=== PATIENT | female | born 1985 | race Caucasian/White ===

== ENCOUNTER 2016-04-23 17:40 | Emergency (ER) | payer MEDICAID, OTHER ==
[~2016-04-23 17:40] MED LIST: COMBIVIR PO; DEPA500T2 OR; DEPA500T2 PO; MACROBID PO; VIREAD PO; no home medications
[2016-04-23 18:38] LABS: MEAN CORPUSCULAR HEMOGLOBIN 30.8 pg (27.0-33.0); MEAN CORPUSCULAR HGB CONC 33.3 g/dl (32.0-36.5); MEAN CORPUSCULAR VOLUME 92.5 fl (80.0-96.0); RED CELL DISTRIBUTION WIDTH 12.3 % (11.5-14.5)
[2016-04-23 18:41] LABS: CONTROL LINE HCG INT CTR LINE PRESENT
[2016-04-23] MEDS ORDERED: ONDANSETRON 4MG/2ML VIAL (J2405) As Ordered ONE (18:50)
[2016-04-23] MEDS ORDERED: MORPHINE 4 MG/ML 1ML SYRINGE As Ordered ONE (18:50)
--- NOTE | 2016-04-23 19:50 | REPUSA ---
Clinical history: bleeding. Findings: Real-time transabdominal and transvaginal ultrasound images of the pelvis were obtained. An anteverted uterus is noted, measuring 9.1 x 5.3 x 7.0 cm. The uterus demonstrates normal echotexture and echogenicity. The endometrial stripe measures 23 mm in diameter. There is an intrauterine gestat ional sac with a mean sac diameter 13.4 mm, located in the lower uterine canal. No pole or yolk sac is identified at this time. The right ovary measures 2.9 x 1.8 x 2.1 cm. The left ovary was not visualized. There is no evidence of free fluid. Impression: 1. Intrauterine gestational sac measuring 6 weeks 1 day by ultrasound measurements. No pole or yolk sac is identified however. The gestational sac is located in the lower uterine segment. This sug gests a spontaneous in progress, although an early could also have this appearance . Follow-up with serial serum beta hCG levels is recommended for further evaluation. 2. Left ovary was not visualized.
[2016-04-23] MEDS ORDERED: NORCO 5/325MG TABLET (BULK) As Ordered ONE (21:24)
--- NOTE | 2016-04-23 21:41 | EDDOCDS ---
Physician Documentation [facility] Name: Valery Nicholson Age: 30 yrs Sex: Female : 1985 Arrival Date: 04/23/2016 Time: 17:40 Bed 7 Private MD: Disposition: 04/23 20:05 Critical Care: Critical care not applicable. pc Disposition: 04/23/16 20:59 Discharged to Home/Self Care. Impression: Threatened , Incomplete spontaneous without complication - suspected. - Condition is Stable. - Discharge Instructions: Incomplete Miscarriage, Threatened Miscarriage. - Prescriptions for [place] 5- 325 mg Oral Tablet - take 1 tablet by ORAL route every 6 hours As needed MDD: 4 tabs; 20 tablet. - Medication Reconciliation, Local Pharmacy Hours form. - Follow up: Tung Hester; When: Call to arrange an appointment; Reason: To establish care. Follow up: Emergency Department; When: As needed; Reason: Worsening of conditions. - Problem is new. - Symptoms have improved. HPI: 18:40 This 30 yrs old Female presents to ER via Police Car with complaints of pc Vaginal Bleeding. 18:40 The history is obtained from the patient. She has not had a period in 8 weeks and pc developed lower abdominal cramping and vaginal bleeding, with dark clots, while in [facility]. She is not sure if she is but has not done any home tests since missing her period 4 weeks ago. At their worst, the symptoms were a 10 out of 10. In the emergency department, the symptoms are a 10 out of 10. The patient has not experienced similar symptoms in the past. The patient has not recently seen a physician. Historical: - Allergies: no known allergies; - Home Meds: 1. none - PMHx: none; - PSHx: none; - The history from nurses notes was reviewed: and I agree with what is documented. - Social history: No barriers to communication noted, The patient speaks fluent Faroese, Smoking status: Patient states former smoker of tobacco. - : The pt / caregiver states he / she is not on anticoagulants. Home medication list is obtained from the patient. - Hospitalizations: : No recent hospitalization is reported. - Exposure Risk Screening:: None identified. - Immunization history:: All immunizations up-to-date. - Family history: Not pertinent. - Social history:: the patient smokes cigarettes the patient drinks alcohol. 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 pc Exam: 18:40 General Appearance: alert, the patient is in moderate distress, anxious. pc 18:40 Abdomen: soft, no organomegaly, normal bowel sounds, mild tenderness in the suprapubic area. 18:40 Back: normal inspection. 18:40 Skin: skin color is normal, warm, dry. Vital Signs: 17:42 BP 121 / 73 LA Sitting (auto/reg); Pulse 108; Resp 18; Pulse Ox 99% on R/A; Weight bnb 54.43 kg / 120 lbs; Height 5 ft. 6 in. (167.64 cm); Pain 10/10; 18:25 Temp 98.9; dls 19:08 BP 117 / 77; Pulse 89; Resp 18; Temp 97.8(O); Pulse Ox 100% on R/A; mgs 20:53 BP 108 / 60; Pulse 81; Resp 18; Temp 99.1; Pulse Ox 98% on R/A; mgs 17:42 Body Mass Index 19.37 (54.43 kg, 167.64 cm) bnb MDM: 18:20 Misc. Nursing Order ordered. pc 18:20 IV Saline Lock ordered. pc 18:21 CBC Ordered. EDMS 18:21 HCG,Serum Qualitative Ordered. EDMS 18:43 Differential Diagnosis: abdominal cramping and vaginal bleeding, metrorrhagia versus pc related. Plan: IV, labs. 18:44 CBC Reviewed. pc 18:44 HCG,Serum Qualitative Reviewed. pc 18:45 morphine 4 mg IVP once ordered. pc 18:45 Ondansetron 4 mg IVP once ordered. pc 18:46 Hcg, Serum Quantitative Ordered. EDMS 18:46 Ultrasound 1st Trimester Ordered. EDMS 18:46 Type & Screen Ordered. EDMS 19:41 Hcg, Serum Quantitative Reviewed. pc 19:41 Type & Screen Reviewed. pc 19:43 -RhoGAM Ultra-Filtered Plus 300 mcg IM once ordered. pc 19:44 Draw Rhogam Ordered. EDMS 20:05 Data reviewed: old medical records, vital signs, nurses notes, lab test results, all pc radiology studies and available results. Test interpretation: LAB - all labs as ordered have been reviewed, interpreted and considered in the overall management of the clinical presentation; Ultrasound - interpreted by Radiologist, OB 1st trimester 6w1d gest. sac in VENKATA, no pole, consistent with spontaneous in progress but a viable could not be ruled out. Therefore, it is a threatened AB. The patient has been re-examined and re-evaluated. The patient's symptoms have resolved after treatment, the patient's pain is gone. ED course: The patient was advised of the US results and was overjoyed, stating that "it was the douche bag's kid anyway and I was going to get an anyway. This just saved me a lot of money.".. Disposition: The historical points, examination findings, and any diagnostic results supporting the provided diagnosis, were discussed with the patient or legal guardian. The need for outpatient follow up with the provider listed on their discharge instructions was discussed. They were encouraged to return to [facility], or the nearest ED, if symptoms worsen/persist, or for any other questions/concerns. 20:54 Financial registration complete. zo 20:55 [facility] Payment Agreement was scanned into [employer] and attached to record. zo 21:05 HYDROcodone-acetaminophen 4 pack- 5 mg-325 mg 1 packets PO Per package directions; pc Dispense with patient. 1 po q4h prn for pain ordered. Administered Medications: 18:59 Drug: morphine 4 mg [morphine 4 mg/mL intravenous cartridge (1 mL)] Route: IVP; Site: kc3 right antecubital; 18:59 Drug: Ondansetron 4 mg [ondansetron HCl 2 mg/mL intravenous solution (2 mL)] Route: kc3 IVP; Site: right antecubital; 20:45 Drug: -RhoGAM Ultra-Filtered Plus 300 mcg [RhoGAM Ultra-Filtered PLUS 1,500 unit (300 mgs mcg) intramuscular syringe (300 mcg)] Route: IM; Site: right deltoid; 21:38 Drug: HYDROcodone-acetaminophen 4 pack- 1 packets [hydrocodone 5 mg-acetaminophen 325 mgs mg tablet (1 tabs)] {Co-Signature: mv5 (Jailene Ko RN).} Route: PO; 21:39 Follow up: Response: Med's dispensed home mgs Signatures: Dispatcher [employer] EDMS Thee Mcmullen MD MD pc Olin, Zoeann zo Raymond, Leelee, RN RN jRuben Spears RN RN Hetal Arce RN kc3 Jailene Ko RN mv5 The chart was reviewed and I authenticate all verbal orders and agree with the evaluation and treatment provided.Corrections: (The following items were deleted from the chart) 20:08 20:05 Test interpretation: LAB - all labs as ordered have been reviewed, interpreted pc and considered in the overall management of the clinical presentation; Ultrasound - interpreted by Radiologist, OB 1st trimester 6w1d gest. sac in VENKATA, no pole, consistent with spontaneous pc Attachments: 20:55 [facility] Payment Agreement zo MTDD
--- NOTE | 2016-04-23 21:41 | EDDOCDS ---
Nurse's Notes [facility] Name: Valery Nicholson Age: 30 yrs Sex: Female : 1985 Arrival Date: 04/23/2016 Time: 17:40 Bed 7 Private MD: Diagnosis: Threatened ;Incomplete spontaneous without complication-suspected Presentation: 04/23 17:48 Presenting complaint: Patient states: last menstrual cycle beginning of February no jjr confirmed testing, sudden onset vaginal bleeding with clots and pelvic pain approx one hour ago. Risk factors: The patient reports no loss of conciousness prior to arrival. This patient has not had a hysterectomy. This patient has not begun menopause. Adult Sepsis Screening: The patient does not have new or worsening altered mentation. Patient's respiratory rate is less than 22. Systolic blood pressure is greater than 100. Patient has a qSOFA score of 0- Negative Sepsis Screen. Suicide/Homicide risk assessment- the patient denies having any suicidal and/or homicidal ideations and does not present with any other emotional, behavioral or mental health complaints. Status: Patient is not a student services advisor or dependent. Transition of care: patient was not received from another setting of care. 17:48 Acuity: DAL[place] Level 3 jjr 17:48 Method Of Arrival: Police Car jjr Triage Assessment: 17:51 General: Appears uncomfortable, Behavior is agitated, restless. General: patient jjr yelling at this video game script writer on way to exam room "I want it out, give me a D&C". Pain: Location: pelvis. HIV screening NA for this visit Offered previously. : Reports vaginal bleeding that is with clots heavy flow. 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 none - PMHx: none; - PSHx: none; - The history from nurses notes was reviewed: and I agree with what is documented. - Social history: No barriers to communication noted, The patient speaks fluent Croatian, Smoking status: Patient states former smoker of tobacco. - : The pt / caregiver states he / she is not on anticoagulants. Home medication list is obtained from the patient. - Hospitalizations: : No recent hospitalization is reported. - Exposure Risk Screening:: None identified. - Immunization history:: All immunizations up-to-date. - Family history: Not pertinent. - Social history:: the patient smokes cigarettes the patient drinks alcohol. Screenin:23 Screening information is obtained from the patient. Fall risk: No risks identified. dls Assistance ADL's: requires no assistance with activities of daily living. Abuse/DV Screen: The patient / caregiver reports he/she is: not in a situation that causes fear, pain or injury. Nutritional screening: No deficits noted. Advance Directives: Currently, there is no health care proxy. There is no active DNR order. There is no living will. There is no Power of [employer]. home support is adequate. Assessment: 17:56 General: Patient pushed emergency button in room. Guard at bedside. Patient stated jmjennifer "hurry up, I hurt, I need someone to do something about it." Patient informed that a provider would be with her shortly but that they were currently with other patients at this time.. 19:07 General: Appears in no apparent distress, Behavior is cooperative. Pain: Denies pain. mgs Neurological: Level of Consciousness is awake, alert, Oriented to person, place, time. Cardiovascular: Capillary refill < 3 seconds Heart tones S1 S2 present Pulses are 2+ in right radial artery and left radial artery. Respiratory: Airway is patent Respiratory effort is even, unlabored, Respiratory pattern is regular, symmetrical. Derm: Skin is pink, warm & dry. 20:52 General: Appears in no apparent distress, Behavior is cooperative. Pain: Denies pain. mgs Neurological: Level of Consciousness is awake, alert, Oriented to person, place, time. Cardiovascular: Capillary refill < 3 seconds. Respiratory: Airway is patent Respiratory effort is even, unlabored, Respiratory pattern is regular, symmetrical. Derm: Skin is pink, warm & dry. 21:33 General: Appears in no apparent distress, Behavior is appropriate for age, cooperative. mgs Pain: Denies pain. Neurological: Level of Consciousness is awake, alert, Oriented to person, place, time. Cardiovascular: Capillary refill < 3 seconds. Respiratory: Airway is patent Respiratory effort is even, unlabored, Respiratory pattern is regular, symmetrical. Derm: Skin is pink, warm & dry. Vital Signs: 17:42 BP 121 / 73 LA Sitting (auto/reg); Pulse 108; Resp 18; Pulse Ox 99% on R/A; Weight bnb 54.43 kg; Height 5 ft. 6 in. (167.64 cm); Pain 10/10; 18:25 Temp 98.9; dls 19:08 BP 117 / 77; Pulse 89; Resp 18; Temp 97.8(O); Pulse Ox 100% on R/A; mgs 20:53 BP 108 / 60; Pulse 81; Resp 18; Temp 99.1; Pulse Ox 98% on R/A; mgs 17:42 Body Mass Index 19.37 (54.43 kg, 167.64 cm) bnb Vitals: 17:42 Log In Time: April 23, 2016 at 17:40. bnb ED Course: 17:41 Patient visited by Fawn Thomas PCA. bnb 17:41 Patient moved to Waiting bnb 17:43 Patient moved to I7 / bnb 17:50 Triage Initiated jjr 18:06 Malaika Bautista, RN is Primary Nurse. jmb 18:06 Patient moved to 7 jmb 18:20 Thee Mcmullen MD is Attending Physician. pc 18:23 The patient / caregiver is instructed regarding the plan of care and ED course. dls 18:23 HCG,Serum Qualitative Sent. hs1 18:24 CBC Sent. hs1 18:40 Patient visited by Thee Mcmullen MD. pc 18:48 Type & Screen Sent. hs1 18:48 Hcg, Serum Quantitative Sent. hs1 19:09 Patient visited by Ruben Horvath,MICHAEL. mgs 19:16 Patient moved to Ultrasound dmg 19:32 Patient moved to 7 dmg 20:17 Ultrasound 1st Trimester Returned. EDMS 20:35 Patient visited by Thee Mcmullen MD. pc 20:37 Draw Rhogam Sent. pc 20:53 Patient visited by Ruben Horvath,MICHAEL. mgs 20:55 [facility] Payment Agreement was scanned into [employer] and attached to record. zo 20:59 Tung Hester is Referral Physician. pc 21:36 Discontinued IV lock intact, bleeding controlled, pressure dressing applied, No mgs redness/swelling at site. No procedures done that require assistance. Administered Medications: 18:59 Drug: morphine 4 mg [morphine 4 mg/mL intravenous cartridge (1 mL)] Route: IVP; Site: kc3 right antecubital; 18:59 Drug: Ondansetron 4 mg [ondansetron HCl 2 mg/mL intravenous solution (2 mL)] Route: kc3 IVP; Site: right antecubital; 20:45 Drug: -RhoGAM Ultra-Filtered Plus 300 mcg [RhoGAM Ultra-Filtered PLUS 1,500 unit (300 mgs mcg) intramuscular syringe (300 mcg)] Route: IM; Site: right deltoid; 21:38 Drug: HYDROcodone-acetaminophen 4 pack- 1 packets [hydrocodone 5 mg-acetaminophen 325 mgs mg tablet (1 tabs)] {Co-Signature: mv5 (Jailene Ko RN).} Route: PO; 21:39 Follow up: Response: Med's dispensed home mgs Order Results: Lab Order: CBC; SPEC'M 04/23/16 18:17 Test: WHITE BLOOD COUNT; Value: 17.0; Range: 4.0-10.0; Abnormal: Above high normal; Units: K/mm3; Status: F Test: RED BLOOD COUNT; Value: 4.17; Range: 4.00-5.40; Units: M/mm3; Status: F Test: HEMOGLOBIN; Value: 12.8; Range: 12.0-16.0; Units: g/dl; Status: F Test: HEMATOCRIT; Value: 38.5; Range: 36.0-47.0; Units: %; Status: F Test: MEAN CORPUSCULAR VOLUME; Value: 92.5; Range: 80.0-96.0; Units: fl; Status: F Test: MEAN CORPUSCULAR HEMOGLOBIN; Value: 30.8; Range: 27.0-33.0; Units: pg; Status: F Test: MEAN CORPUSCULAR HGB CONC; Value: 33.3; Range: 32.0-36.5; Units: g/dl; Status: F Test: RED CELL DISTRIBUTION WIDTH; Value: 12.3; Range: 11.5-14.5; Units: %; Status: F Test: PLATELET COUNT, AUTOMATED; Value: 266; Range: 150-450; Units: k/mm3; Status: F Lab Order: HCG,Serum Qualitative; SPEC'M 04/23/16 18:17 Test: HCG, SERUM QUALITATIVE; Value: POSITIVE; Range: NEGATIVE; Abnormal: Abnormal; Status: F Lab Order: Hcg, Serum Quantitative; SPEC'M 04/23/16 18:17 Test: HCG, SERUM QUANTITATIVE; Value: 4354; Units: MIU/ML; Status: F Test Note: ; GESTATIONAL AGE APPROXIMATE HCG RANGE (MIU/ML) 0.2-1 WEEK 5-50 1-2 WEEKS 50-500 2-3 WEEKS 100-5,000 3-4 WEEKS 500-10,000 4-5 WEEKS 1,000-50,000 5-6 WEEKS 10,000-100,000 6-8 WEEKS 15,000-200,000 2-3 MONTHS 10,000-100,000 NON FEMALES LESS THAN 3.0 Patient samples may contain human heterophilic antibodies that could react with immunoassays to give falsely elevated or depressed results. This assay has been designed to minimize interference from heterophilic antibodies. Elevated hCG levels have also been associated with trophoblastic disease and nontrophoblastic neoplasms. The possibility of having these diseases should be considered before a diagnosis of is made. This test is not intended for use as a surrogate marker for aiding in the diagnosis or monitoring the treatment of cancer patients. Siemens [place] methodology. Lab Order: Type & Screen; SPEC'M 04/23/16 18:17 Test: BLOOD TYPE; Value: A NEG; Status: F Test: AB SCREEN (INDIRECT BIB)VIS; Value: NEGATIVE; Status: F Radiology Order: Ultrasound 1st Trimester Test: Ultrasound 1st Trimester REASON FOR EXAMINATION: Bleeding; ; Clinical history: bleeding.; Findings: Real-time transabdominal and transvaginal ultrasound images of the pelvis were obtained. An; anteverted uterus is noted, measuring 9.1 x 5.3 x 7.0 cm. The uterus demonstrates normal echotexture; and echogenicity. The endometrial stripe measures 23 mm in diameter. There is an intrauterine gestat; ional sac with a mean sac diameter 13.4 mm, located in the lower uterine canal. No pole or yolk; sac is identified at this time. The right ovary measures 2.9 x 1.8 x 2.1 cm. The left ovary was not; visualized. There is no evidence of free fluid.; Impression:; 1. Intrauterine gestational sac measuring 6 weeks 1 day by ultrasound measurements. No pole or; yolk sac is identified however. The gestational sac is located in the lower uterine segment. This sug; gests a spontaneous in progress, although an early could also have this appearance; . Follow-up with serial serum beta hCG levels is recommended for further evaluation.; 2. Left ovary was not visualized.; ; Outcome: 20:59 Discharge ordered by Provider. pc 21:37 Discharge Assessment: Patient awake, alert and oriented x 3. No cognitive and/or mgs functional deficits noted. Patient verbalized understanding of disposition instructions. patient administered narcotics - yes. Pt provided with safe discharge. The following High Risk Discharge criteria are identified: None. Discharged to [facility]. Condition: stable. Discharge instructions given to patient, police, Instructed on discharge instructions, follow up and referral plans. medication usage, Demonstrated understanding of instructions, medications, Pt was receptive of discharge instructions/ teaching. Prescriptions given X 1. Ultrasound Study completed. Property :Personal belongings accompany Pt. 21:39 Patient left the ED. mgs Signatures: Dispatcher [employer] EDMS Thee Mcmullen MD MD pc Scott, Debra, RN RN Tish Mitchell Zoeann zo Raymond, Jessica RN RN [place] RN RN hs1 Milton Thomas RN RN Ruben [place] RN RN mgs Hetal Cardona RN RN kc3 Fawn Thomas, BEHAVIORAL HEALTH PROFESSIONAL BEHAVIORAL HEALTH PROFESSIONAL bnb Jailene Ko RN mv5 MTDD
--- NOTE | 2016-04-25 22:40 | EDDOCDS ---
Physician Documentation [facility] Name: Valery Nicholson Age: 30 yrs Sex: Female : 1985 Arrival Date: 04/23/2016 Time: 17:40 Bed 7 Private MD: Disposition: 04/23 20:05 Critical Care: Critical care not applicable. pc Disposition: 04/23/16 20:59 Discharged to Home/Self Care. Impression: Threatened , Incomplete spontaneous without complication - suspected. - Condition is Stable. - Discharge Instructions: Incomplete Miscarriage, Threatened Miscarriage. - Prescriptions for [place] 5- 325 mg Oral Tablet - take 1 tablet by ORAL route every 6 hours As needed MDD: 4 tabs; 20 tablet. - Medication Reconciliation, Local Pharmacy Hours form. - Follow up: [facility]; When: Call to arrange an appointment; Reason: To establish care. Follow up: Emergency Department; When: As needed; Reason: Worsening of conditions. - Problem is new. - Symptoms have improved. HPI: 18:40 This 30 yrs old Female presents to ER via Police Car with complaints of pc Vaginal Bleeding. 18:40 The history is obtained from the patient. She has not had a period in 8 weeks and pc developed lower abdominal cramping and vaginal bleeding, with dark clots, while in [facility]. She is not sure if she is but has not done any home tests since missing her period 4 weeks ago. At their worst, the symptoms were a 10 out of 10. In the emergency department, the symptoms are a 10 out of 10. The patient has not experienced similar symptoms in the past. The patient has not recently seen a physician. Historical: - Allergies: no known allergies; - Home Meds: 1. none - PMHx: none; - PSHx: none; - The history from nurses notes was reviewed: and I agree with what is documented. - Social history: No barriers to communication noted, The patient speaks fluent Filipino, Smoking status: Patient states former smoker of tobacco. - : The pt / caregiver states he / she is not on anticoagulants. Home medication list is obtained from the patient. - Hospitalizations: : No recent hospitalization is reported. - Exposure Risk Screening:: None identified. - Immunization history:: All immunizations up-to-date. - Family history: Not pertinent. - Social history:: the patient smokes cigarettes the patient drinks alcohol. 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 pc Exam: 18:40 General Appearance: alert, the patient is in moderate distress, anxious. pc 18:40 Abdomen: soft, no organomegaly, normal bowel sounds, mild tenderness in the suprapubic area. 18:40 Back: normal inspection. 18:40 Skin: skin color is normal, warm, dry. Vital Signs: 17:42 BP 121 / 73 LA Sitting (auto/reg); Pulse 108; Resp 18; Pulse Ox 99% on R/A; Weight bnb 54.43 kg / 120 lbs; Height 5 ft. 6 in. (167.64 cm); Pain 10/10; 18:25 Temp 98.9; dls 19:08 BP 117 / 77; Pulse 89; Resp 18; Temp 97.8(O); Pulse Ox 100% on R/A; mgs 20:53 BP 108 / 60; Pulse 81; Resp 18; Temp 99.1; Pulse Ox 98% on R/A; mgs 17:42 Body Mass Index 19.37 (54.43 kg, 167.64 cm) bnb MDM: 18:20 Misc. Nursing Order ordered. pc 18:20 IV Saline Lock ordered. pc 18:21 CBC Ordered. EDMS 18:21 HCG,Serum Qualitative Ordered. EDMS 18:43 Differential Diagnosis: abdominal cramping and vaginal bleeding, metrorrhagia versus pc related. Plan: IV, labs. 18:44 CBC Reviewed. pc 18:44 HCG,Serum Qualitative Reviewed. pc 18:45 morphine 4 mg IVP once ordered. pc 18:45 Ondansetron 4 mg IVP once ordered. pc 18:46 Hcg, Serum Quantitative Ordered. EDMS 18:46 Ultrasound 1st Trimester Ordered. EDMS 18:46 Type & Screen Ordered. EDMS 19:41 Hcg, Serum Quantitative Reviewed. pc 19:41 Type & Screen Reviewed. pc 19:43 -RhoGAM Ultra-Filtered Plus 300 mcg IM once ordered. pc 19:44 Draw Rhogam Ordered. EDMS 20:05 Data reviewed: old medical records, vital signs, nurses notes, lab test results, all pc radiology studies and available results. Test interpretation: LAB - all labs as ordered have been reviewed, interpreted and considered in the overall management of the clinical presentation; Ultrasound - interpreted by Radiologist, OB 1st trimester 6w1d gest. sac in VENKATA, no pole, consistent with spontaneous in progress but a viable could not be ruled out. Therefore, it is a threatened AB. The patient has been re-examined and re-evaluated. The patient's symptoms have resolved after treatment, the patient's pain is gone. ED course: The patient was advised of the US results and was overjoyed, stating that "it was the douche bag's kid anyway and I was going to get an anyway. This just saved me a lot of money.".. Disposition: The historical points, examination findings, and any diagnostic results supporting the provided diagnosis, were discussed with the patient or legal guardian. The need for outpatient follow up with the provider listed on their discharge instructions was discussed. They were encouraged to return to [facility], or the nearest ED, if symptoms worsen/persist, or for any other questions/concerns. 20:54 Financial registration complete. zo 20:55 [facility] [place] [place] Payment Agreement was scanned into [employer] and attached to record. zo 21:05 HYDROcodone-acetaminophen 4 pack- 5 mg-325 mg 1 packets PO Per package directions; pc Dispense with patient. 1 po q4h prn for pain ordered. 04/24 13:22 Radiology Report was scanned into [employer] and attached to record. gb Administered Medications: 04/23 18:59 Drug: morphine 4 mg [morphine 4 mg/mL intravenous cartridge (1 mL)] Route: IVP; Site: kc3 right antecubital; 18:59 Drug: Ondansetron 4 mg [ondansetron HCl 2 mg/mL intravenous solution (2 mL)] Route: kc3 IVP; Site: right antecubital; 20:45 Drug: -RhoGAM Ultra-Filtered Plus 300 mcg [RhoGAM Ultra-Filtered PLUS 1,500 unit (300 mgs mcg) intramuscular syringe (300 mcg)] Route: IM; Site: right deltoid; 21:38 Drug: HYDROcodone-acetaminophen 4 pack- 1 packets [hydrocodone 5 mg-acetaminophen 325 mgs mg tablet (1 tabs)] {Co-Signature: mv5 (Jailene Ko RN).} Route: PO; 21:39 Follow up: Response: Med's dispensed home mgs Signatures: Dispatcher [employer] Thee Villalta MD MD pc Nila Coker, Reg Reg Haider Monk Jessica, RN RN Ruben Steele RN RN mgs Hetal Cardona RN kc3 Jailene Ko RN mv5 The chart was reviewed and I authenticate all verbal orders and agree with the evaluation and treatment provided.Corrections: (The following items were deleted from the chart) 20:08 20:05 Test interpretation: LAB - all labs as ordered have been reviewed, interpreted pc and considered in the overall management of the clinical presentation; Ultrasound - interpreted by Radiologist, OB 1st trimester 6w1d gest. sac in VENKATA, no pole, consistent with spontaneous pc Attachments: 20:55 [facility] [place] [place] Payment Agreement zo Chart Complete MTDD
--- NOTE | 2016-04-25 22:40 | EDDOCDS ---
Physician Documentation [facility] Name: Valery Nicholson Age: 30 yrs Sex: Female : 1985 Arrival Date: 04/23/2016 Time: 17:40 Bed 7 Private MD: Disposition: 04/23 20:05 Critical Care: Critical care not applicable. pc Disposition: 04/23/16 20:59 Discharged to Home/Self Care. Impression: Threatened , Incomplete spontaneous without complication - suspected. - Condition is Stable. - Discharge Instructions: Incomplete Miscarriage, Threatened Miscarriage. - Prescriptions for [place] 5- 325 mg Oral Tablet - take 1 tablet by ORAL route every 6 hours As needed MDD: 4 tabs; 20 tablet. - Medication Reconciliation, Local Pharmacy Hours form. - Follow up: [facility]; When: Call to arrange an appointment; Reason: To establish care. Follow up: Emergency Department; When: As needed; Reason: Worsening of conditions. - Problem is new. - Symptoms have improved. HPI: 18:40 This 30 yrs old Female presents to ER via Police [employer] with complaints of pc Vaginal Bleeding. 18:40 The history is obtained from the patient. She has not had a period in 8 weeks and pc developed lower abdominal cramping and vaginal bleeding, with dark clots, while in [facility]. She is not sure if she is but has not done any home tests since missing her period 4 weeks ago. At their worst, the symptoms were a 10 out of 10. In the emergency department, the symptoms are a 10 out of 10. The patient has not experienced similar symptoms in the past. The patient has not recently seen a physician. Historical: - Allergies: no known allergies; - Home Meds: 1. none - PMHx: none; - PSHx: none; - The history from nurses notes was reviewed: and I agree with what is documented. - Social history: No barriers to communication noted, The patient speaks fluent Kos[place], Smoking status: Patient states former smoker of tobacco. - : The pt / caregiver states he / she is not on anticoagulants. Home medication list is obtained from the patient. - Hospitalizations: : No recent hospitalization is reported. - Exposure Risk Screening:: None identified. - Immunization history:: All immunizations up-to-date. - Family history: Not pertinent. - Social history:: the patient smokes cigarettes the patient drinks alcohol. 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 pc Exam: 18:40 General Appearance: alert, the patient is in moderate distress, anxious. pc 18:40 Abdomen: soft, no organomegaly, normal bowel sounds, mild tenderness in the suprapubic area. 18:40 Back: normal inspection. 18:40 Skin: skin color is normal, warm, dry. Vital Signs: 17:42 BP 121 / 73 LA Sitting (auto/reg); Pulse 108; Resp 18; Pulse Ox 99% on R/A; Weight bnb 54.43 kg / 120 lbs; Height 5 ft. 6 in. (167.64 cm); Pain 10/10; 18:25 Temp 98.9; dls 19:08 BP 117 / 77; Pulse 89; Resp 18; Temp 97.8(O); Pulse Ox 100% on R/A; mgs 20:53 BP 108 / 60; Pulse 81; Resp 18; Temp 99.1; Pulse Ox 98% on R/A; mgs 17:42 Body Mass Index 19.37 (54.43 kg, 167.64 cm) bnb MDM: 18:20 Misc. Nursing Order ordered. pc 18:20 IV Saline Lock ordered. pc 18:21 CBC Ordered. EDMS 18:21 HCG,Serum Qualitative Ordered. EDMS 18:43 Differential Diagnosis: abdominal cramping and vaginal bleeding, metrorrhagia versus pc related. Plan: IV, labs. 18:44 CBC Reviewed. pc 18:44 HCG,Serum Qualitative Reviewed. pc 18:45 morphine 4 mg IVP once ordered. pc 18:45 Ondansetron 4 mg IVP once ordered. pc 18:46 Hcg, Serum Quantitative Ordered. EDMS 18:46 Ultrasound 1st Trimester Ordered. EDMS 18:46 Type & Screen Ordered. EDMS 19:41 Hcg, Serum Quantitative Reviewed. pc 19:41 Type & Screen Reviewed. pc 19:43 -RhoGAM Ultra-Filtered Plus 300 mcg IM once ordered. pc 19:44 Draw Rhogam Ordered. EDMS 20:05 Data reviewed: old medical records, vital signs, nurses notes, lab test results, all pc radiology studies and available results. Test interpretation: LAB - all labs as ordered have been reviewed, interpreted and considered in the overall management of the clinical presentation; Ultrasound - interpreted by Radiologist, OB 1st trimester 6w1d gest. sac in [place], no pole, consistent with spontaneous in progress but a viable could not be ruled out. Therefore, it is a threatened AB. The patient has been re-examined and re-evaluated. The patient's symptoms have resolved after treatment, the patient's pain is gone. ED course: The patient was advised of the US results and was overjoyed, stating that "it was the douche bag's kid anyway and I was going to get an anyway. This just saved me a lot of money.".. Disposition: The historical points, examination findings, and any diagnostic results supporting the provided diagnosis, were discussed with the patient or legal guardian. The need for outpatient follow up with the provider listed on their discharge instructions was discussed. They were encouraged to return to [facility], or the nearest ED, if symptoms worsen/persist, or for any other questions/concerns. 20:54 Financial registration complete. zo 20:55 [facility] [place] Payment Agreement was scanned into [employer] and attached to record. zo 21:05 HYDROcodone-acetaminophen 4 pack- 5 mg-325 mg 1 packets PO Per package directions; pc Dispense with patient. 1 po q4h prn for pain ordered. 04/24 13:22 Radiology Report was scanned into [employer] and attached to record. gb Administered Medications: 04/23 18:59 Drug: morphine 4 mg [morphine 4 mg/mL intravenous cartridge (1 mL)] Route: IVP; Site: kc3 right antecubital; 18:59 Drug: Ondansetron 4 mg [ondansetron HCl 2 mg/mL intravenous solution (2 mL)] Route: kc3 IVP; Site: right antecubital; 20:45 Drug: -RhoGAM Ultra-Filtered Plus 300 mcg [RhoGAM Ultra-Filtered PLUS 1,500 unit (300 mgs mcg) intramuscular syringe (300 mcg)] Route: IM; Site: right deltoid; 21:38 Drug: HYDROcodone-acetaminophen 4 pack- 1 packets [hydrocodone 5 mg-acetaminophen 325 mgs mg tablet (1 tabs)] {Co-Signature: mv5 (Jailene Ko RN).} Route: PO; 21:39 Follow up: Response: Med's dispensed home mgs Signatures: Dispatcher [employer] Thee Villalta MD MD pc Nila Coker, Reg Reg Haider Monk Jessica, RN RN Ruben Steele RN RN mgs Hetal Cardona RN kc3 Jailene Ko RN mv5 The chart was reviewed and I authenticate all verbal orders and agree with the evaluation and treatment provided.Corrections: (The following items were deleted from the chart) 20:08 20:05 Test interpretation: LAB - all labs as ordered have been reviewed, interpreted pc and considered in the overall management of the clinical presentation; Ultrasound - interpreted by Radiologist, OB 1st trimester 6w1d gest. sac in V[place], no pole, consistent with spontaneous pc Attachments: 20:55 [facility] Payment Agreement zo Chart Complete MTDD
--- NOTE | 2016-04-25 22:40 | EDDOCDS ---
Nurse's Notes [facility] Name: Valery Nicholson Age: 30 yrs Sex: Female : 1985 Arrival Date: 04/23/2016 Time: 17:40 Bed 7 Private MD: Diagnosis: Threatened ;Incomplete spontaneous without complication-suspected Presentation: 04/23 17:48 Presenting complaint: Patient states: last menstrual cycle beginning of February no jjr confirmed testing, sudden onset vaginal bleeding with clots and pelvic pain approx one hour ago. Risk factors: The patient reports no loss of conciousness prior to arrival. This patient has not had a hysterectomy. This patient has not begun menopause. Adult Sepsis Screening: The patient does not have new or worsening altered mentation. Patient's respiratory rate is less than 22. Systolic blood pressure is greater than 100. Patient has a qSOFA score of 0- Negative Sepsis Screen. Suicide/Homicide risk assessment- the patient denies having any suicidal and/or homicidal ideations and does not present with any other emotional, behavioral or mental health complaints. Status: Patient is not a director of food and nutrition services or dependent. Transition of care: patient was not received from another setting of care. 17:48 Acuity: DALTON Level 3 jjr 17:48 Method Of Arrival: Police Car jjr Triage Assessment: 17:51 General: Appears uncomfortable, Behavior is agitated, restless. General: patient jjr yelling at this typewriter assembler on way to exam room "I want it out, give me a D&C". Pain: Location: pelvis. HIV screening NA for this visit Offered previously. : Reports vaginal bleeding that is with clots heavy flow. 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 none - PMHx: none; - PSHx: none; - The history from nurses notes was reviewed: and I agree with what is documented. - Social history: No barriers to communication noted, The patient speaks fluent Kazakh, Smoking status: Patient states former smoker of tobacco. - : The pt / caregiver states he / she is not on anticoagulants. Home medication list is obtained from the patient. - Hospitalizations: : No recent hospitalization is reported. - Exposure Risk Screening:: None identified. - Immunization history:: All immunizations up-to-date. - Family history: Not pertinent. - Social history:: the patient smokes cigarettes the patient drinks alcohol. Screenin:23 Screening information is obtained from the patient. Fall risk: No risks identified. dls Assistance ADL's: requires no assistance with activities of daily living. Abuse/DV Screen: The patient / caregiver reports he/she is: not in a situation that causes fear, pain or injury. Nutritional screening: No deficits noted. Advance Directives: Currently, there is no health care proxy. There is no active DNR order. There is no living will. There is no Power of Private Branch Exchange Service Adviser. home support is adequate. Assessment: 17:56 General: Patient pushed emergency button in room. Guard at bedside. Patient stated jmjennifer "hurry up, I hurt, I need someone to do something about it." Patient informed that a provider would be with her shortly but that they were currently with other patients at this time.. 19:07 General: Appears in no apparent distress, Behavior is cooperative. Pain: Denies pain. mgs Neurological: Level of Consciousness is awake, alert, Oriented to person, place, time. Cardiovascular: Capillary refill < 3 seconds Heart tones S1 S2 present Pulses are 2+ in right radial artery and left radial artery. Respiratory: Airway is patent Respiratory effort is even, unlabored, Respiratory pattern is regular, symmetrical. Derm: Skin is pink, warm & dry. 20:52 General: Appears in no apparent distress, Behavior is cooperative. Pain: Denies pain. mgs Neurological: Level of Consciousness is awake, alert, Oriented to person, place, time. Cardiovascular: Capillary refill < 3 seconds. Respiratory: Airway is patent Respiratory effort is even, unlabored, Respiratory pattern is regular, symmetrical. Derm: Skin is pink, warm & dry. 21:33 General: Appears in no apparent distress, Behavior is appropriate for age, cooperative. mgs Pain: Denies pain. Neurological: Level of Consciousness is awake, alert, Oriented to person, place, time. Cardiovascular: Capillary refill < 3 seconds. Respiratory: Airway is patent Respiratory effort is even, unlabored, Respiratory pattern is regular, symmetrical. Derm: Skin is pink, warm & dry. Vital Signs: 17:42 BP 121 / 73 LA Sitting (auto/reg); Pulse 108; Resp 18; Pulse Ox 99% on R/A; Weight bnb 54.43 kg; Height 5 ft. 6 in. (167.64 cm); Pain 10/10; 18:25 Temp 98.9; dls 19:08 BP 117 / 77; Pulse 89; Resp 18; Temp 97.8(O); Pulse Ox 100% on R/A; mgs 20:53 BP 108 / 60; Pulse 81; Resp 18; Temp 99.1; Pulse Ox 98% on R/A; mgs 17:42 Body Mass Index 19.37 (54.43 kg, 167.64 cm) bnb Vitals: 17:42 Log In Time: April 23, 2016 at 17:40. bnb ED Course: 17:41 Patient visited by Fawn Thomas PCA. bnb 17:41 Patient moved to Waiting bnb 17:43 Patient moved to I7 / bnb 17:50 Triage Initiated jjr 18:06 Malaika Bautista, RN is Primary Nurse. jmb 18:06 Patient moved to 7 jmb 18:20 Thee Mcmullen MD is Attending Physician. pc 18:23 The patient / caregiver is instructed regarding the plan of care and ED course. dls 18:23 HCG,Serum Qualitative Sent. hs1 18:24 CBC Sent. hs1 18:40 Patient visited by Thee Mcmullen MD. pc 18:48 Type & Screen Sent. hs1 18:48 Hcg, Serum Quantitative Sent. hs1 19:09 Patient visited by Ruben Horvath,MICHAEL. mgs 19:16 Patient moved to Ultrasound dmg 19:32 Patient moved to 7 dmg 20:17 Ultrasound 1st Trimester Returned. EDMS 20:35 Patient visited by Thee Mcmullen MD. pc 20:37 Draw Rhogam Sent. pc 20:53 Patient visited by Ruben Horvath,MICHAEL. mgs 20:55 [facility] Payment Agreement was scanned into Bei[employer] and attached to record. zo 20:59 Tung Hester is Referral Physician. pc 21:36 Discontinued IV lock intact, bleeding controlled, pressure dressing applied, No mgs redness/swelling at site. No procedures done that require assistance. 04/24 13:22 Radiology Report was scanned into BeiZ and attached to record. gb Administered Medications: 04/23 18:59 Drug: morphine 4 mg [morphine 4 mg/mL intravenous cartridge (1 mL)] Route: IVP; Site: kc3 right antecubital; 18:59 Drug: Ondansetron 4 mg [ondansetron HCl 2 mg/mL intravenous solution (2 mL)] Route: kc3 IVP; Site: right antecubital; 20:45 Drug: -RhoGAM Ultra-Filtered Plus 300 mcg [RhoGAM Ultra-Filtered PLUS 1,500 unit (300 mgs mcg) intramuscular syringe (300 mcg)] Route: IM; Site: right deltoid; 21:38 Drug: HYDROcodone-acetaminophen 4 pack- 1 packets [hydrocodone 5 mg-acetaminophen 325 mgs mg tablet (1 tabs)] {Co-Signature: [email or web address] (Jailene Ko RN).} Route: PO; 21:39 Follow up: Response: Med's dispensed home mgs Order Results: Lab Order: CBC; SPEC'M 04/23/16 18:17 Test: WHITE BLOOD COUNT; Value: 17.0; Range: 4.0-10.0; Abnormal: Above high normal; Units: K/mm3; Status: F Test: RED BLOOD COUNT; Value: 4.17; Range: 4.00-5.40; Units: M/mm3; Status: F Test: HEMOGLOBIN; Value: 12.8; Range: 12.0-16.0; Units: g/dl; Status: F Test: HEMATOCRIT; Value: 38.5; Range: 36.0-47.0; Units: %; Status: F Test: MEAN CORPUSCULAR VOLUME; Value: 92.5; Range: 80.0-96.0; Units: fl; Status: F Test: MEAN CORPUSCULAR HEMOGLOBIN; Value: 30.8; Range: 27.0-33.0; Units: pg; Status: F Test: MEAN CORPUSCULAR HGB CONC; Value: 33.3; Range: 32.0-36.5; Units: g/dl; Status: F Test: RED CELL DISTRIBUTION WIDTH; Value: 12.3; Range: 11.5-14.5; Units: %; Status: F Test: PLATELET COUNT, AUTOMATED; Value: 266; Range: 150-450; Units: k/mm3; Status: F Lab Order: HCG,Serum Qualitative; SPEC'M 04/23/16 18:17 Test: HCG, SERUM QUALITATIVE; Value: POSITIVE; Range: NEGATIVE; Abnormal: Abnormal; Status: F Lab Order: Hcg, Serum Quantitative; SPEC'M 04/23/16 18:17 Test: HCG, SERUM QUANTITATIVE; Value: 4354; Units: MIU/ML; Status: F Test Note: ; GESTATIONAL AGE APPROXIMATE HCG RANGE (MIU/ML) 0.2-1 WEEK 5-50 1-2 WEEKS 50-500 2-3 WEEKS 100-5,000 3-4 WEEKS 500-10,000 4-5 WEEKS 1,000-50,000 5-6 WEEKS 10,000-100,000 6-8 WEEKS 15,000-200,000 2-3 MONTHS 10,000-100,000 NON FEMALES LESS THAN 3.0 Patient samples may contain human heterophilic antibodies that could react with immunoassays to give falsely elevated or depressed results. This assay has been designed to minimize interference from heterophilic antibodies. Elevated hCG levels have also been associated with trophoblastic disease and nontrophoblastic neoplasms. The possibility of having these diseases should be considered before a diagnosis of is made. This test is not intended for use as a surrogate marker for aiding in the diagnosis or monitoring the treatment of cancer patients. [employer] methodology. Lab Order: Type & Screen; SPEC'M 04/23/16 18:17 Test: BLOOD TYPE; Value: A NEG; Status: F Test: AB SCREEN (INDIRECT BIB)VIS; Value: NEGATIVE; Status: F Radiology Order: Ultrasound 1st Trimester Test: Ultrasound 1st Trimester REASON FOR EXAMINATION: Bleeding; ; Clinical history: bleeding.; Findings: Real-time transabdominal and transvaginal ultrasound images of the pelvis were obtained. An; anteverted uterus is noted, measuring 9.1 x 5.3 x 7.0 cm. The uterus demonstrates normal echotexture; and echogenicity. The endometrial stripe measures 23 mm in diameter. There is an intrauterine gestat; ional sac with a mean sac diameter 13.4 mm, located in the lower uterine canal. No pole or yolk; sac is identified at this time. The right ovary measures 2.9 x 1.8 x 2.1 cm. The left ovary was not; visualized. There is no evidence of free fluid.; Impression:; 1. Intrauterine gestational sac measuring 6 weeks 1 day by ultrasound measurements. No pole or; yolk sac is identified however. The gestational sac is located in the lower uterine segment. This sug; gests a spontaneous in progress, although an early could also have this appearance; . Follow-up with serial serum beta hCG levels is recommended for further evaluation.; 2. Left ovary was not visualized.; ; Outcome: 20:59 Discharge ordered by Provider. pc 21:37 Discharge Assessment: Patient awake, alert and oriented x 3. No cognitive and/or mgs functional deficits noted. Patient verbalized understanding of disposition instructions. patient administered narcotics - yes. Pt provided with safe discharge. The following High Risk Discharge criteria are identified: None. Discharged to [facility]. Condition: stable. Discharge instructions given to patient, police, Instructed on discharge instructions, follow up and referral plans. medication usage, Demonstrated understanding of instructions, medications, Pt was receptive of discharge instructions/ teaching. Prescriptions given X 1. Ultrasound Study completed. Property :Personal belongings accompany Pt. 21:39 Patient left the ED. mgs Signatures: Dispatcher [employer] EDMS Thee Mcmullen MD MD pc Scott, Debra, RN RN Tish Mitchell Gloria, Gaurang Reg Haider Monk Jessica, RN Lolis Patiño RN RN hs1 Milton ThomasRN Ruben Oseguera RN RN mgs Crane, Kelsi, RN RN kc3 Fawn Thomas, SECURITY ADVISOR SECURITY ADVISOR bnb Jailene Ko RN mv5 Chart Complete MTDD
== END 2016-04-23 21:39 | disposition home or self-care (01) ==
LOC: M ED 17:40
DX: O20.0 Threatened abortion (principal); Z87.891 Personal history of nicotine dependence
CPT/HCPCS: 76801; 84702; 84703; 85027; 86850; 86900; 86901; 96372; 96374; 96375; 99284; J2405; J2790

== ENCOUNTER 2016-07-09 18:59 | Inpatient (IN) | payer OTHER, SELFPAY ==
[~2016-07-09] VITALS: Ht 165.1 cm; Wt 61.4 kg
[2016-07-09 21:21] LABS: MEAN CORPUSCULAR HEMOGLOBIN 32.7 pg (27.0-33.0); MEAN CORPUSCULAR HGB CONC 34.8 g/dl (32.0-36.5); MEAN CORPUSCULAR VOLUME 93.8 fl (80.0-96.0); RED CELL DISTRIBUTION WIDTH 12.1 % (11.5-14.5); WHITE BLOOD COUNT 8.6 K/mm3 (4.0-10.0)
[2016-07-09 21:39] LABS: METHADONE URINE NEGATIVE (NEGATIVE)
[2016-07-09 21:57] LABS: ALBUMIN/GLOBULIN RATIO 1.21 (1.00-1.93); ALKALINE PHOSPHATASE 104 U/L (45-117); ALT/SGPT 14 U/L (12-78); ANION GAP 8 MEQ/L (8-16); AST/SGOT 9 U/L (15-37); BILIRUBIN,DIRECT 0.1 MG/DL (0.0-0.2); BILIRUBIN,TOTAL 0.4 MG/DL (0.2-1.0); BLOOD UREA NITROGEN 8 MG/DL (7-18); CARBON DIOXIDE LEVEL 27 MEQ/L (21-32); CHLORIDE LEVEL 104 MEQ/L (98-107); CREATININE FOR GFR 0.83 MG/DL (0.55-1.02); GLOMERULAR FILTRATION RATE > 60.0 (>60); GLUCOSE, FASTING 93 MG/DL (70-105); SODIUM LEVEL 139 MEQ/L (136-145); TOTAL PROTEIN 7.3 GM/DL (6.4-8.2)
[2016-07-09 22:35] LABS: CONTROL LINE HCG INT CTR LINE PRESENT
[2016-07-09] MEDS ORDERED: LORazepam 1 MG TAB PO STA (22:45)
[2016-07-10] MEDS ORDERED: HALOPERIDOL 5 MG/ML VIAL (J1630) IM STA (00:36)
[2016-07-10] MEDS ORDERED: traZODone 50 MG TAB PO PRN (14:45)
[2016-07-10] MEDS ORDERED: ACETAMINOPHEN TAB 650MG DOSE (2X325MG) PO PRN (14:45)
[2016-07-10] MEDS ORDERED: MAALOX 30 ML SUSP *UDC PO PRN (14:45)
[2016-07-10] MEDS ORDERED: MOM 30ML SUSPENSION UDC PO PRN (14:45)
[2016-07-10 15:12] VITALS: BP 99/62
[2016-07-10] MEDS: NICOTINE 21MG/24HR 1 EA TRANSDERMAL TD SCH (17:49)
[2016-07-11 06:28] VITALS: BP 113/54
[2016-07-11] MEDS: NICOTINE 21MG/24HR 1 EA TRANSDERMAL TD SCH (09:12)
--- NOTE | 2016-07-11 09:27 | MHHPE ---
DATE OF ADMISSION: 07/10/2016 Valery Nicholson is a 31-year-old from [place], [place]. 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 She lives with the father of her child, Konstantin, who is in construction. Her legal history is negative. Her alcohol history is negative. REASON FOR ADMISSION: She spent some time with a girlfriend and her new boyfriend, and they had cocaine, which ended up being meth. She could not sleep. Her throat was closing, and she felt that she had taken bad stuff. She jumped into a taxi and went to the [employer] and asked them to call the police and take her to a doctor. This happened to her once before in 2012. PSYCHIATRIC HISTORY: She has had short-term psychiatric care for a previous episode in 2012 involving bath salts. She was given Depakote at that time but stopped it. She takes no other psychiatric medications. She has a 7th grade education. MENTAL STATUS: She denies hallucinations, delusions, obsessions, compulsions, and phobias. Has a good appetite and sleep. IMPRESSION: Drug-induced psychosis. PLAN: Observation of the patient.
[2016-07-11 18:00] VITALS: BP 105/70
--- NOTE | 2016-07-11 23:31 | HPE ---
DATE OF ADMISSION: 07/11/2016 HISTORY OF THE PRESENT ILLNESS: Please refer to psychiatric history and evaluation for further details on this admission. This examination and history is intended for medical issues which may need treatment, followup, or consult on this 31-year-old female. ALLERGIES: No known allergies. SOCIAL HISTORY: She is single. She lives with her 3-year-old child and her significant other. ETOH: Occasionally on the weekends. She smokes one pack of cigarettes per day. Recreational drug use: Marijuana. Urine was positive for amphetamine, benzodiazepine and canabinoids. LABORATORY STUDIES: CBC normal, electrolytes normal. BUN and creatinine 8 and 0.83. PAST MEDICAL HISTORY: Negative. PAST SURGICAL HISTORY: Negative. HOME MEDICATIONS: None. REVIEW OF SYSTEMS: Ten-system review was done and was negative. The patient had no complaints, was feeling well. OBJECTIVE: Vital signs stable. Height 65 inches, weight 61.4 kg, body mass index (BMI) 22.5. Blood pressure 113/54, pulse 69, respirations 16, temperature 98.3. The patient is alert and oriented times three. Pupils are equal and reactive to light. Extraocular movements intact. Cornea and sclerae clear. Conjunctivae is normal. No facial asymmetry. Pharynx: Tongue and gums pink and moist. Tongue is midline. Neck is supple without lymphadenopathy. No thyromegaly. No goiter. Carotids 2+ without bruits. Chest is clear to auscultation without wheeze or retractions. Heart is regular. Abdomen: Benign. Bowel sounds are positive. Genitalia/Rectal: Not done. Extremities show equal strength, full range of motion. No cyanosis, clubbing or edema. Peripheral pulses equal and palpable bilaterally. Skin is warm and dry. IMPRESSION AND PLAN: Psychiatric plan per psychiatry. No acute medical issues.
[2016-07-12 06:55] VITALS: BP 90/54
[2016-07-12] MEDS: NICOTINE 21MG/24HR 1 EA TRANSDERMAL TD SCH (08:59)
--- NOTE | 2016-07-12 16:08 | MHDS ---
DATE OF ADMISSION: 07/10/2016 DATE OF DISCHARGE: 07/12/2016 Valery Nicholson is a 31-year-old female from [place], [place]. 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 She lives with the father of her child, Konstantin, who is in construction. Her legal history is negative. Alcohol history is negative. REASON FOR ADMISSION: She spent some time with a girlfriend and her new boyfriend and they had cocaine which ended up, according to urine toxicology screen, being methamphetamines and diazepams combined. The patient felt her throat was closing and felt that she had taken "bad stuff." She had jumped into a taxi, went to the [employer], and asked them to call the police and take her to a doctor. She had an episode like this also occurring in 2013. PSYCHIATRIC HISTORY: A very short-term psychiatric care for a previous episode in 2012 using bath salts. At that time, she was given Depakote but stopped it. She has taken no other psychiatric medication. EDUCATION HISTORY: She has a seventh grade education. Medical history is essentially negative. Examination by Christa Cuenca NP indicated that the patient had no known allergies. She lives with her 3-year-old child and her significant other. She states she uses alcohol occasionally on weekends, smokes a pack of cigarettes per day, and does use recreational marijuana. Urine was positive for amphetamines, benzodiazepines, and cannabinoids. LABORATORY STUDIES: Shows normal CBC with normal electrolytes. PAST MEDICAL HISTORY: Negative. PAST SURGICAL HISTORY: Negative. HOME MEDICATIONS: None. REVIEW OF SYSTEMS: Was done and negative. DISCHARGE MENTAL STATUS EXAMINATION: Speech is normal. No disturbance of thought processes. No loose associations. No abnormal or psychotic thoughts. No disturbance of insight and judgment. Fully oriented. Recent and remote memory are intact. No disturbance of attention or concentration. No disturbance of language. Full fund of knowledge. Mood is good and affect is bright. 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 DISCHARGE PLAN: Discharge to home. No followup medications and no followup appointments are desired by the patient.
== END 2016-07-12 12:05 | disposition home or self-care (01) | DRG 776 ==
LOC: M ED 20:23 → M ED INP 07-10 14:35 → M PSY 07-10 15:08
PROVIDERS: ADMIT Psychiatry & Neurology Child & Adolescent Psychiatry; ATTEND Psychiatry & Neurology Child & Adolescent Psychiatry
DX: F19.94 Other psychoactive substance use, unspecified with psychoactive substance-induced mood disorder (principal); F15.10 Other stimulant abuse, uncomplicated; F17.210 Nicotine dependence, cigarettes, uncomplicated; F12.10 Cannabis abuse, uncomplicated

== ENCOUNTER 2016-07-29 00:28 | Emergency (ER) | payer SELFPAY ==
[~2016-07-29] VITALS: Ht 162.6 cm; Wt 53.5 kg
[2016-07-29 01:03] LABS: MEAN CORPUSCULAR HEMOGLOBIN 32.2 pg (27.0-33.0); MEAN CORPUSCULAR HGB CONC 33.3 g/dl (32.0-36.5); MEAN CORPUSCULAR VOLUME 96.7 fl (80.0-96.0); WHITE BLOOD COUNT 10.8 K/mm3 (4.0-10.0)
[2016-07-29 01:05] LABS: CONTROL LINE HCG INT CTR LINE PRESENT
[2016-07-29 01:18] LABS: ALBUMIN/GLOBULIN RATIO 1.08 (1.00-1.93); ALKALINE PHOSPHATASE 100 U/L (45-117); ALT/SGPT 16 U/L (12-78); ANION GAP 7 MEQ/L (8-16); AST/SGOT 16 U/L (15-37); BILIRUBIN,DIRECT 0.3 MG/DL (0.0-0.2); BILIRUBIN,TOTAL 0.9 MG/DL (0.2-1.0); BLOOD UREA NITROGEN 7 MG/DL (7-18); CARBON DIOXIDE LEVEL 28 MEQ/L (21-32); CHLORIDE LEVEL 104 MEQ/L (98-107); CREATININE FOR GFR 0.85 MG/DL (0.55-1.02); GLOMERULAR FILTRATION RATE > 60.0 (>60); GLUCOSE, FASTING 92 MG/DL (70-105); POTASSIUM SERUM 3.7 MEQ/L (3.5-5.1); SODIUM LEVEL 139 MEQ/L (136-145); TOTAL PROTEIN 7.7 GM/DL (6.4-8.2)
[2016-07-29 01:30] LABS: METHADONE URINE NEGATIVE (NEGATIVE)
[2016-07-29] MEDS ORDERED: HALOPERIDOL 5 MG/ML VIAL (J1630) IM STA (04:04)
[2016-07-29] MEDS ORDERED: diphenhydrAMINE INJ 50MG/ML VIAL (J1200) IM ONE (04:15)
[2016-07-29 12:53] VITALS: BP 115/66
== END 2016-07-29 12:49 | disposition home or self-care (01) ==
LOC: M ED 10:30
DX: F15.129 Other stimulant abuse with intoxication, unspecified (principal); F19.10 Other psychoactive substance abuse, uncomplicated
CPT/HCPCS: 80048; 80076; 80306; 84443; 84703; 85027; 96372; 99284; G0480; J1200; J1630

== ENCOUNTER 2016-09-24 00:22 | Emergency (ER) | payer SELFPAY ==
[~2016-09-24] VITALS: Ht 167.6 cm; Wt 63.6 kg
[2016-09-24 00:55] VITALS: BP 132/88
== END 2016-09-24 01:47 | disposition home or self-care (01) ==
LOC: M ED 00:22
DX: K05.00 Acute gingivitis, plaque induced (principal); F19.10 Other psychoactive substance abuse, uncomplicated

== ENCOUNTER 2017-03-10 10:49 | Emergency (ER) | payer SELFPAY | END 2017-03-10 11:18 | disposition left against medical advice (07) | LOC: M ED 10:49 | DX: K08.89 Other specified disorders of teeth and supporting structures (principal); Z53.21 Procedure and treatment not carried out due to patient leaving prior to being seen by health care provider ==

== ENCOUNTER 2017-07-02 21:16 | Inpatient (IN) | payer MEDICAID, SELFPAY ==
[2017-07-02] MEDS: LACTATED RINGER'S 1000 ML IV (22:52)
[2017-07-02] MEDS ORDERED: LR 1,000 ML IV (22:52)
[2017-07-02] MEDS: BICITRA 30ML SOLN UDC PO (23:00)
[2017-07-02 23:11] LABS: HEMATOCRIT 35.1 % (36.0-47.0); MEAN CORPUSCULAR HEMOGLOBIN 29.7 pg (27.0-33.0); MEAN CORPUSCULAR HGB CONC 34.2 g/dl (32.0-36.5); MEAN CORPUSCULAR VOLUME 86.9 fl (80.0-96.0); PLATELET COUNT, AUTOMATED 147 10^3/uL (150-450); RED BLOOD COUNT 4.04 10^6/uL (4.00-5.40); RED CELL DISTRIBUTION WIDTH 13.4 % (11.5-14.5); WHITE BLOOD COUNT 10.7 10^3/uL (4.0-10.0)
[2017-07-02] MEDS: LR 1,000 ML IV (23:36)
[2017-07-02] MEDS ORDERED: ONDANSETRON 4MG/2ML VIAL (J2405) IV ×2 (23:37→23:45)
[2017-07-02] MEDS ORDERED: METOCLOPRAMIDE INJ 10MG/2ML VIAL (J2765) IV (23:37)
[2017-07-02] MEDS ORDERED: NALOXONE INJ 0.4 MG/1 ML VIAL (J2310) IV ×2 (23:37)
[2017-07-02] MEDS ORDERED: NALBUPHINE HCL 10 MG/ML AMP (J2300) IV (23:37)
[2017-07-02] MEDS ORDERED: MORPHINE PRES-FREE INJ 10 MG/10 ML VIAL (J2274) As Ordered (23:45)
[2017-07-02] MEDS ORDERED: dexameTHASONE 4 MG/ML 1ML VIAL (J1100) As Ordered (23:45)
[2017-07-02] MEDS ORDERED: METHYLERGONOVINE MALEATE 0.2 MG TAB PO (23:45)
[2017-07-02] MEDS ORDERED: ONDANSETRON 4MG/2ML VIAL (J2405) As Ordered (23:45)
[2017-07-02] MEDS ORDERED: PHENYLephrine HCL 500 MCG/5 ML (100MCG/ML) SYRINGE (J2370) As Ordered (23:45)
[2017-07-02] MEDS ORDERED: OXYTOCIN INJ 10 UNITS/ML VIAL (J2590) As Ordered (23:45)
[2017-07-02] MEDS ORDERED: MOM 30ML SUSPENSION UDC PO (23:45)
[2017-07-02] MEDS ORDERED: NORCO, ANEXSIA 5/325MG TABLET (HYDROcodone/ACETAMINOPHEN) PO (23:45)
[2017-07-02] MEDS ORDERED: METOCLOPRAMIDE INJ 10MG/2ML VIAL (J2765) As Ordered (23:45)
[2017-07-02] MEDS ORDERED: MEASLES,MUMPS,RUBELLA VACCINE INJ (MMR-II) (90707) SC (23:45)
[2017-07-02] MEDS ORDERED: ePHEDrine SULFATE 25 MG/5 ML(5MG/ML) SYRINGE As Ordered (23:45)
[2017-07-02] MEDS ORDERED: RHOGAM 300 MCG (1500 IU) INJ (J2790) IM (23:45)
[2017-07-02] MEDS ORDERED: KETOROLAC 60 MG/2 ML VIAL (J1885) As Ordered (23:45)
[2017-07-03] MEDS ORDERED: MIDAZOLAM INJ 2 MG/2 ML VIAL (J2250) As Ordered (00:02)
[2017-07-03] MEDS ORDERED: NALBUPHINE HCL 10 MG/ML AMP (J2300) IV (00:45)
[2017-07-03] MEDS ORDERED: MORPHINE 10 MG/ML 1ML VIAL (J2270) IV (00:45)
[2017-07-03] MEDS ORDERED: ONDANSETRON 4MG/2ML VIAL (J2405) IV (00:45)
[2017-07-03] MEDS ORDERED: fentaNYL 100 MCG/2 ML INJECTION (J3010) IV (00:45)
[2017-07-03] MEDS: LR 1,000 ML IV (00:45)
[2017-07-03 01:20] LABS: AMPHETAMINES URINE REFLEX NEGATIVE (NEGATIVE); BARBITURATES URINE REFLEX NEGATIVE (NEGATIVE); BENZODIAZEPINES URINE REFLEX NEGATIVE (NEGATIVE); CANNABINOIDS URINE REFLEX NEGATIVE (NEGATIVE); COCAINE METABOLITE URINE REFLE NEGATIVE (NEGATIVE); METHADONE URINE REFLEX NEGATIVE (NEGATIVE); OPIATES URINE REFLEX NEGATIVE (NEGATIVE); PHENCYCLIDINE URINE REFLEX NEGATIVE (NEGATIVE)
[2017-07-03 01:32] LABS: CORD GAS ABE V -3.5; CORD GAS PCO2 V 41.4 mmHg; CORD GAS PH V 7.344 UNITS; CORD GAS PO2 V 29.3 mmHg; CORD GAS TCO2 V 23.3 MEQ/L
[2017-07-03 01:34] LABS: CORD GAS O2 SAT V 72.6 %; CORD GAS SBC V 20.9 MEQ/L
[2017-07-03 01:35] LABS: CORD GAS ABE A -1.8; CORD GAS HCO3 A 25.1 MEQ/L; CORD GAS PCO2 A 50.4 mmHg; CORD GAS PH A 7.315 UNITS; CORD GAS PO2 A 23.4 mmHg; CORD GAS SBC A 21.8 MEQ/L; CORD GAS TCO2 A 26.6 MEQ/L
[2017-07-03 02:08] LABS: CHLAMYDIA DNA AMPLIFICATION NEGATIVE (NEGATIVE); GC DNA AMPLIFICATION NEGATIVE (NEGATIVE)
[2017-07-03 06:52] LABS: HEMATOCRIT 33.8 % (36.0-47.0); HEMOGLOBIN 11.3 g/dl (12.0-15.5); MEAN CORPUSCULAR HEMOGLOBIN 28.9 pg (27.0-33.0); MEAN CORPUSCULAR HGB CONC 33.4 g/dl (32.0-36.5); MEAN CORPUSCULAR VOLUME 86.4 fl (80.0-96.0); PLATELET COUNT, AUTOMATED 157 10^3/uL (150-450); RED BLOOD COUNT 3.91 10^6/uL (4.00-5.40); RED CELL DISTRIBUTION WIDTH 13.2 % (11.5-14.5); WHITE BLOOD COUNT 14.8 10^3/uL (4.0-10.0)
[2017-07-03] MEDS: DOCUSATE SODIUM 100 MG CAP PO (08:21)
[2017-07-03] MEDS: IBUPROFEN 800 MG TAB PO ×3 (08:21→16:41)
[2017-07-03] MEDS: PRENATAL VITAMINS CHEWABLE TABLET PO (08:21)
[2017-07-03] MEDS: NORCO, ANEXSIA 5/325MG TABLET (HYDROcodone/ACETAMINOPHEN) PO (14:48)
[2017-07-03 15:10] LABS: FETAL SCREEN PROF. 1 1
[2017-07-03 16:41] LABS: AMPHETAMINES URINE REFLEX NEGATIVE (NEGATIVE); BARBITURATES URINE REFLEX NEGATIVE (NEGATIVE); BENZODIAZEPINES URINE REFLEX NEGATIVE (NEGATIVE); CANNABINOIDS URINE REFLEX NEGATIVE (NEGATIVE); COCAINE METABOLITE URINE REFLE NEGATIVE (NEGATIVE); METHADONE URINE REFLEX NEGATIVE (NEGATIVE); OPIATES URINE REFLEX NEGATIVE (NEGATIVE); PHENCYCLIDINE URINE REFLEX NEGATIVE (NEGATIVE)
[2017-07-03 17:28] LABS: AMPHETAMINES URINE REFLEX NEGATIVE (NEGATIVE); BARBITURATES URINE REFLEX NEGATIVE (NEGATIVE); BENZODIAZEPINES URINE REFLEX NEGATIVE (NEGATIVE); COCAINE METABOLITE URINE REFLE NEGATIVE (NEGATIVE); METHADONE URINE REFLEX NEGATIVE (NEGATIVE); PHENCYCLIDINE URINE REFLEX NEGATIVE (NEGATIVE)
[2017-07-03 17:47] LABS: CANNABINOIDS URINE REFLEX PENDING CONFIRMATION (NEGATIVE)
[2017-07-03 17:48] LABS: OPIATES URINE REFLEX PENDING CONFIRMATION (NEGATIVE)
[2017-07-03] MEDS: NICOTINE 21MG/24HR 1 EA TRANSDERMAL TD (19:09)
[2017-07-04 12:01] LABS: HEPATITIS C VIRUS ABY INDEX < 0.0 INDEX (<0.8)
== END 2017-07-03 19:20 | DRG 540 ==
LOC: M LDO 21:16 → M OBS 07-03 01:45 → M LDI 22:48
PROVIDERS: Advanced Practice Midwife
PROC: 10D00Z1 Extraction of Products of Conception, Low, Open Approach (ICD-10-PCS; principal; 2017-07-02 23:28)
DX: O34.211 Maternal care for low transverse scar from previous cesarean delivery (principal); F31.9 Bipolar disorder, unspecified; F17.200 Nicotine dependence, unspecified, uncomplicated; Z37.0 Single live birth; Z3A.38 38 weeks gestation of pregnancy; O09.30 Supervision of pregnancy with insufficient antenatal care, unspecified trimester; O99.334 Smoking (tobacco) complicating childbirth; O99.344 Other mental disorders complicating childbirth

== ENCOUNTER 2017-07-03 19:21 | Inpatient (IN) | payer MEDICAID ==
[2017-07-03] MEDS ORDERED: MAALOX 30 ML SUSP *UDC PO (21:00)
[2017-07-03] MEDS ORDERED: MOM 30ML SUSPENSION UDC PO (21:00)
[2017-07-03] MEDS ORDERED: ACETAMINOPHEN TAB 650MG DOSE (2X325MG) PO (21:00)
[2017-07-03] MEDS: traZODone 50 MG TAB PO (21:40)
[2017-07-03] MEDS: OLANZapine ORAL DISINTEGRATING TAB 5MG PO (21:41)
[2017-07-04] MEDS: PERCOCET 5MG/325MG TAB PO ×4 (08:36→21:51)
[2017-07-04] MEDS: IBUPROFEN 800 MG TAB PO ×3 (08:37→17:08)
[2017-07-04] MEDS ORDERED: hydrOXYzine 50 MG TAB PO (11:15)
[2017-07-04] MEDS: DOCUSATE SODIUM 100 MG CAP PO ×2 (12:04→21:09)
[2017-07-04] MEDS: PARoxetine 12.5 MG **CR** TAB PO (12:04)
[2017-07-04] MEDS: FERROUS SULFATE 325MG TAB PO (12:04)
[2017-07-04] MEDS: PRENATAL VITAMINS CHEWABLE TABLET PO (12:04)
[2017-07-04] MEDS: traZODone 50 MG TAB PO (21:09)
[2017-07-05] MEDS: IBUPROFEN 800 MG TAB PO ×3 (06:04→12:26)
[2017-07-05 07:29] LABS: HEMATOCRIT 29.9 % (36.0-47.0); HEMOGLOBIN 10.1 g/dl (12.0-15.5); MEAN CORPUSCULAR HEMOGLOBIN 29.8 pg (27.0-33.0); MEAN CORPUSCULAR HGB CONC 33.8 g/dl (32.0-36.5); MEAN CORPUSCULAR VOLUME 88.2 fl (80.0-96.0); PLATELET COUNT, AUTOMATED 184 10^3/uL (150-450); RED BLOOD COUNT 3.39 10^6/uL (4.00-5.40); RED CELL DISTRIBUTION WIDTH 14.1 % (11.5-14.5); WHITE BLOOD COUNT 11.4 10^3/uL (4.0-10.0)
[2017-07-05] MEDS: PERCOCET 5MG/325MG TAB PO ×2 (08:09→12:27)
[2017-07-05] MEDS: DOCUSATE SODIUM 100 MG CAP PO (08:09)
[2017-07-05] MEDS: PARoxetine 12.5 MG **CR** TAB PO (08:09)
[2017-07-05] MEDS: FERROUS SULFATE 325MG TAB PO (08:09)
[2017-07-05 08:11] LABS: ALBUMIN 2.1 GM/DL (3.2-5.2); ALBUMIN/GLOBULIN RATIO 0.72 (1.00-1.93); ALKALINE PHOSPHATASE 187 U/L (45-117); ALT/SGPT 8 U/L (12-78); ANION GAP 6 MEQ/L (8-16); AST/SGOT 16 U/L (7-37); BILIRUBIN,TOTAL 0.3 MG/DL (0.2-1.0); BLOOD UREA NITROGEN 5 MG/DL (7-18); CALCIUM LEVEL 7.9 MG/DL (8.5-10.1); CARBON DIOXIDE LEVEL 27 MEQ/L (21-32); CHLORIDE LEVEL 109 MEQ/L (98-107); CREATININE FOR GFR 0.49 MG/DL (0.55-1.30); GLOMERULAR FILTRATION RATE > 60.0 (>60); GLUCOSE, FASTING 67 MG/DL (70-100); SODIUM LEVEL 142 MEQ/L (136-145)
[2017-07-05] MEDS: PRENATAL VITAMINS CHEWABLE TABLET PO (09:00)
[2017-07-06] MEDS ORDERED: dexameTHASONE 4 MG/ML 1ML VIAL (J1100) As Ordered (08:04)
[2017-07-06] MEDS ORDERED: PHENYLephrine HCL 500 MCG/5 ML (100MCG/ML) SYRINGE (J2370) As Ordered (08:04)
[2017-07-06] MEDS ORDERED: ePHEDrine SULFATE 25 MG/5 ML(5MG/ML) SYRINGE As Ordered (08:04)
[2017-07-06] MEDS ORDERED: KETOROLAC 60 MG/2 ML VIAL (J1885) As Ordered (08:04)
[2017-07-06] MEDS ORDERED: MORPHINE PRES-FREE INJ 10 MG/10 ML VIAL (J2274) As Ordered (08:04)
[2017-07-06] MEDS ORDERED: OXYTOCIN INJ 10 UNITS/ML VIAL (J2590) As Ordered (08:04)
[2017-07-06] MEDS ORDERED: ONDANSETRON 4MG/2ML VIAL (J2405) As Ordered (08:04)
== END 2017-07-05 13:40 | disposition home or self-care (01) | DRG 756 ==
LOC: M PSY 19:21
DX: F41.1 Generalized anxiety disorder (principal); D72.829 Elevated white blood cell count, unspecified; F31.9 Bipolar disorder, unspecified; F17.200 Nicotine dependence, unspecified, uncomplicated

== ENCOUNTER 2018-02-28 17:00 | Emergency (ER) | payer MEDICAID | END 2018-02-28 19:23 | disposition left against medical advice (07) | LOC: M ED 17:00 | DX: R52 Pain, unspecified (principal); Z53.21 Procedure and treatment not carried out due to patient leaving prior to being seen by health care provider ==

== ENCOUNTER 2018-06-15 17:44 | Emergency (ER) | payer MEDICAID, SELFPAY ==
[~2018-06-15] VITALS: Ht 162.6 cm; Wt 61.8 kg
[2018-06-15 17:44] VITALS: BP 115/63
[~2018-06-15 17:44] MED LIST changes: +COLA100C5 PO; +FERR1TAB8 PO; +HYDRO50TAB PO; +IBUP80TA PO; +PARO12.5 PO; +PERCOCET PO; +PREN1CHW6 PO; +TRAZO50TA PO
[2018-06-15] MEDS: IBUPROFEN 800 MG TAB PO ONE (18:14)
[2018-06-15] MEDS: PENICILLIN V POTASSIUM 500 MG TAB PO ONE (18:14)
[2018-06-15] MEDS: LIDOCAINE W/EPINEPHRINE 1% 20ML VIAL SC ONE (18:15)
[2018-06-15] MEDS: BUPIVACAINE HCL 0.5% 10 ML VIAL SC ONE (18:15)
[2018-06-15] MEDS ORDERED: IBUP-1022 PO (18:30)
[2018-06-15] MEDS ORDERED: PENI500T PO (18:30)
== END 2018-06-15 18:44 | disposition home or self-care (01) ==
LOC: M ED 17:44
DX: K04.7 Periapical abscess without sinus (principal); K08.89 Other specified disorders of teeth and supporting structures

== ENCOUNTER 2018-09-11 18:25 | Inpatient (IN) | payer MEDICAID, OTHER, SELFPAY ==
[~2018-09-11] VITALS: Ht 167.6 cm; Wt 57.2 kg
[~2018-09-11 18:25] MED LIST changes: +IBUP-1022 PO; +PENI500T PO; +TRAZ1TAB10 PO; -TRAZO50TA PO
[2018-09-11 20:47] LABS: HEMATOCRIT 35.4 % (36.0-47.0); HEMOGLOBIN 12.2 g/dl (12.0-15.5); MEAN CORPUSCULAR HEMOGLOBIN 31.9 pg (27.0-33.0); MEAN CORPUSCULAR HGB CONC 34.5 g/dl (32.0-36.5); MEAN CORPUSCULAR VOLUME 92.7 fl (80.0-96.0); PLATELET COUNT, AUTOMATED 234 10^3/uL (150-450); RED BLOOD COUNT 3.82 10^6/uL (4.00-5.40); WHITE BLOOD COUNT 9.7 10^3/uL (4.0-10.0)
[2018-09-11 21:16] LABS: HCG, SERUM QUALITATIVE POSITIVE (NEGATIVE)
[2018-09-11 21:24] LABS: ACETAMINOPHEN LEVEL < 2.0 UG/ML (10.0-30.0); ALBUMIN 3.1 GM/DL (3.2-5.2); ALT/SGPT 10 U/L (12-78); BILIRUBIN,DIRECT 0.1 MG/DL (0.0-0.2); BILIRUBIN,TOTAL 0.4 MG/DL (0.2-1.0); BLOOD UREA NITROGEN 11 MG/DL (7-18); CALCIUM LEVEL 8.6 MG/DL (8.5-10.1); CARBON DIOXIDE LEVEL 22 MEQ/L (21-32); CHLORIDE LEVEL 107 MEQ/L (98-107); CREATININE FOR GFR 0.67 MG/DL (0.55-1.30); ETHYL ALCOHOL (ETHANOL) < 0.003 % (0.000-0.010); GLOMERULAR FILTRATION RATE > 60.0 (>60); GLUCOSE, FASTING 81 MG/DL (70-100); POTASSIUM SERUM 4.2 MEQ/L (3.5-5.1); SALICYLATE LEVEL 3.8 MG/DL (5.0-30.0); SODIUM LEVEL 140 MEQ/L (136-145); TOTAL PROTEIN 6.5 GM/DL (6.4-8.2)
[2018-09-11 22:18] LABS: AMPHETAMINES LEVEL URINE POSITIVE (NEGATIVE); BARBITURATES URINE NEGATIVE (NEGATIVE); BENZODIAZEPINES URINE NEGATIVE (NEGATIVE); CANNABINOIDS URINE POSITIVE (NEGATIVE); COCAINE METABOLITE URINE NEGATIVE (NEGATIVE); METHADONE URINE POSITIVE (NEGATIVE); OPIATES URINE NEGATIVE (NEGATIVE); PHENCYCLIDINE URINE NEGATIVE (NEGATIVE)
[2018-09-11] MEDS ORDERED: ACETAMINOPHEN TAB 650MG DOSE (2X325MG) PO PRN (23:15)
[2018-09-11] MEDS ORDERED: MOM 30ML SUSPENSION UDC PO PRN (23:15)
[2018-09-11] MEDS ORDERED: diphenhydrAMINE 25 MG CAP PO PRN (23:15)
[2018-09-11] MEDS ORDERED: HALOPERIDOL 5 MG TAB PO PRN (23:15)
[2018-09-11] MEDS ORDERED: MAALOX 30 ML SUSP *UDC PO PRN (23:15)
[2018-09-11 23:50] VITALS: BP 99/52
--- NOTE | 2018-09-12 05:53 | MHHPEPDOC ---
[facility] History & Physical History and Physical Date of : 1985 Date of Service and admission: 09/12/2018 Chief Complaint "I'm from [place], can't you tell? [place] next to [place]." History of Present Illness Patient, a 33-year-old woman, presented to [facility], brought in for acting fairly bizarrely and endorsing homicidal ideation by her boyfriend. She reportedly has a history of psychostimulant use, specifically metham phetamine. 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 When attempting to meet with the patient, she was so tangential and distorted that it was difficult to get a history from the patient, as she denied being yet, recently getting an ultrasound, is at roughly between 16 weeks and 20 weeks' gestation and stating that she's from [place], but also at the same time [place]. She additionally endorsed feelings that she's being chased by "hanibles" as well as "animals." She demanded to be released, but subsequently terminated her line of questioning when told that was not a gee idea at this point. The majority of the psychosocial information is derived from the chart, as the patient is unable to be redirected to answer questions. Review Of Systems A full and comprehensive review of systems was unable to be obtained due to patient's mental status. Past Psychiatric History The patient has an extensive history of inpatient admissions with the most recent roughly 1 month ago for substance-induced psychosis. She has been reportedly diagnosed with bipolar and tried on medications such as Lyrica. She has reportedly been arranged with follow up with [facility]. That's not clear if she has attended it consistently. It's unclear if she has had any confirmed suicide attempts in the past. Allergies Please see below. Family Psychiatric History The patient denies/is unaware any history of mental health history including addictions and suicide. Social History The patient currently resides with her significant other, reportedly being in a 6-year relationship with the man. She currently subsists on three thousand a month in employment-related payments. 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 She has completed 11th grade at her highest education. Has previously denied any history of legal charges. Reports a history of having 7 brothers and sisters. Substance Abuse History The patient has a reported history of misusing nicotine, amphetamines, opioids and marijuana. It's unclear of the exact amount that she has been using recently. Her urine toxicology on admission reflected positive methadone, amphetamines and cannabinoids. She has been previously seen at the [facility] for addiction. Medical History She's roughly between 16 and 20 weeks . Mental Status Examination General: Disheveled Speech: Pressured Thought processes: Tangential and un-redirectable MSK: Psychomotor agitation Thought content: Paranoid Abstract reasoning, and computation: Impaired Description of associations: Loose Description of abnormal or psychotic thoughts: Bizarre and paranoid ideation. Unable to answer whether any suicidal or homicidal ideation Judgment: Impaired Insight: Impaired Orientation: Alert. 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 Opioid use disorder, severe. Tobacco use disorder, severe. Marijuana use disorder, severe. Assessment and Plan 33 yo woman with significant methamphetamine use and psychosis, mirroring her previous presentation where she spontaneously resolved after she had detoxed from her methamphetamine. She's currently between 16 and 20 weeks and thus will need an CAPACITY PLANNING ANALYST consult in order to determine if heart monitoring or other interventions are needed at this time. I called the on-call CAPACITY PLANNING ANALYST at roughly 8 o'clock this morning and placed a consult. I've not heard back as of yet. Disposition The patient will need greater than 2 midnights of inpatient admission in order to stabilize her acute psychotic episode, as she poses a high risk of danger to herself and others. Problem List 1. Psychosis. 2. Substance use. 3. Homicidal ideation. Initial Treatment Plan 1. Patient was admitted on a 9.39 legal status. 2. Complete history was obtained. 3. With patients permission, family will be contacted and database will be expanded. 4. Patients medication regimen will be reviewed and changed accordingly. 5. Patient will be provided with protected environment. 6. Patient will be treated with individual, group, and milieu therapies. 7. Patient will receive supportive psych-education. 8. Discharge planning will commence immediately. 9. Outpatient follow-up treatment will be strongly recommended. 10. The initial treatment plan will focus initially on: observation, risk is greater than benefit of starting neuroleptic due to , substance induced psychosis is likely to resolve with only PRN agitation medications patient refusing heart monitoring at this time, will need to monitor and make CPS report due to active use. Estimated Length Of Stay Three days. Time Spent Forty-five minutes. Vital Signs Vital Signs Date Time Temp Pulse Resp B/P (MAP) Pulse Ox O2 Delivery O2 Flow Rate FiO2 09/11/18 23:50 99.7 79 16 99/52 (68) 100 09/11/18 23:21 Room Air Laboratory Data 24H Labs Laboratory Tests 2 09/11/18 20:29: Nucleated Red Blood Cells % (auto) 0.0 09/11/18 20:30: Anion Gap 11, Glomerular Filtration Rate > 60.0, Calcium Level 8.6, Aspartate Amino Transf (AST/SGOT) 9, Alanine Aminotransferase (ALT/SGPT) 10L, Alkaline Phosphatase 76, Total Bilirubin 0.4, Direct Bilirubin 0.1, Total Protein 6.5, Albumin 3.1L, Albumin/Globulin Ratio 0.91L, Thyroid Stimulating Hormone (TSH) 1.010, Human Chorionic Gonadotropin, Qual POSITIVEA, Salicylates Level 3.8L, Acetaminophen Level < 2.0L, Ethyl Alcohol Level < 0.003 09/11/18 21:43: Urine Amphetamines Screen POSITIVEH, Urine Benzodiazepines Screen NEGATIVE, Urine Opiates Screen NEGATIVE, Urine Methadone Screen POSITIVEH, Urine Barbiturates Screen NEGATIVE, Urine Phencyclidine Screen NEGATIVE, Urine Cocaine Metabolite Screen NEGATIVE, Urine Cannabinoids Screen POSITIVEH CBC/BMP Laboratory Tests 09/11/18 20:29 Red Blood Count 3.82 L, Mean Corpuscular Volume 92.7, Mean Corpuscular Hemoglobin 31.9, Mean Corpuscular Hemoglobin Concent 34.5, Red Cell Distribution Width 11.9 09/11/18 20:30 Medications No Active Prescriptions or Reported Meds Allergies Coded Allergies: No Known Allergies (Unverified , 06/15/18) EDWIN GAITAN DO Sep 12, 2018 05:53
[2018-09-12 06:35] VITALS: BP 109/61
--- NOTE | 2018-09-12 11:00 | HPEPDOC ---
[facility] Medical History & Physical Date of Admission Sep 12, 2018 Date of Service: Sep 12, 2018 History and Physical CHIEF COMPLAINT: Bizarre behavior HISTORY OF PRESENT ILLNESS: Patient is a 33-year-old female with past medical history of bipolar and polysubstance use brought into [facility] for reported psychosis. Utox positive for cannabis, amphetamines, and methadone. She appeared to have similar admission to [facility] in the past post polysubstance use. Unable to obtain history from patient at this time due to mental status. Answer questions but not appropriately and appeared agitated. Denies any pain or discomfort however. She is reportedly 21 weeks but she denies that fact. PAST MEDICAL HISTORY: Refer to [facility] PAST SURGICAL HISTORY: Unable to obtain SOCIAL HISTORY: polysubstance use history. Unable to obtain other history. FAMILY HISTORY: Unable to obtain ALLERGIES: Please see below. REVIEW OF SYSTEMS: 10 point review of system negative except as stated in [facility] HOME MEDICATIONS: Please see below. PHYSICAL EXAMINATION: General: Agitated, alert. Confused and paranoid. Eyes: Normal sclera, EOMI, LUCY HENT: Atraumatic, neck supple, moist mucous membranes Cardiovascular: Normal rate, normal rhythm. Pulmonary: Clear to auscultation b/l, no wheezing GI: Soft, nontender, small distension in lower abdomen. Skin: Warm and dry Neuro: No focal deficits. Strengths equal b/l. Psych: alert. Confused and paranoid. LABORATORY DATA: See below. MICROBIOLOGY: Please see below. ASSESSMENT AND PLAN: 1. Psychosis - Likely 2/2 polysubstance use. - Supportive care. Evaluate and treat per Psych. - Does not appear to have other medical problems apart from . 2. - 21 weeks per report given, patient denies. - OBGYN evaluation pending. - Suspect possible impact on fetus with polysubstance abuse, already or in the future. Will sign off at this time as patient appears stable apart from psychosis. Please call back if any issues arise, will be happy to re-evaluate and follow along. Vital Signs Vital Signs Date Time Temp Pulse Resp B/P (MAP) Pulse Ox O2 Delivery O2 Flow Rate FiO2 09/12/18 06:35 99.0 91 16 109/61 (77) 09/11/18 23:50 100 09/11/18 23:21 Room Air Laboratory Data Labs 24H Laboratory Tests 2 09/11/18 20:29: Nucleated Red Blood Cells % (auto) 0.0 09/11/18 20:30: Anion Gap 11, Glomerular Filtration Rate > 60.0, Calcium Level 8.6, Aspartate Amino Transf (AST/SGOT) 9, Alanine Aminotransferase (ALT/SGPT) 10L, Alkaline Phosphatase 76, Total Bilirubin 0.4, Direct Bilirubin 0.1, Total Protein 6.5, Albumin 3.1L, Albumin/Globulin Ratio 0.91L, Thyroid Stimulating Hormone (TSH) 1.010, Human Chorionic Gonadotropin, Qual POSITIVEA, Salicylates Level 3.8L, Acetaminophen Level < 2.0L, Ethyl Alcohol Level < 0.003 09/11/18 21:43: Urine Amphetamines Screen POSITIVEH, Urine Benzodiazepines Screen NEGATIVE, Urin e Opiates Screen NEGATIVE, Urine Methadone Screen POSITIVEH, Urine Barbiturates Screen NEGATIVE, Urine Phencyclidine Screen NEGATIVE, Urine Cocaine Metabolite Screen NEGATIVE, Urine Cannabinoids Screen POSITIVEH CBC/BMP Laboratory Tests 09/11/18 20:29 Red Blood Count 3.82 L, Mean Corpuscular Volume 92.7, Mean Corpuscular Hemoglobin 31.9, Mean Corpuscular Hemoglobin Concent 34.5, Red Cell Distribution Width 11.9 09/11/18 20:30 Home Medications No Active Prescriptions or Reported Meds Allergies Coded Allergies: No Known Allergies (Unverified , 06/15/18) A-FIB/CHADSVASC A-FIB History Current/History of A-Fib/PAF?: No KADEN DAVID MD Sep 12, 2018 11:00
[2018-09-12] MEDS: PRENATAL VITAMINS CHEWABLE TABLET PO SCH ×2 (17:58→18:28)
[2018-09-12] MEDS ORDERED: diphenhydrAMINE 50 MG CAP PO PRN (18:09)
[2018-09-12 18:10] VITALS: BP 105/52
[2018-09-13 06:06] VITALS: BP 100/51
[2018-09-13] MEDS: PRENATAL VITAMINS CHEWABLE TABLET PO SCH (10:23)
--- NOTE | 2018-09-13 12:08 | IPNPDOC ---
Text Note Date of Service The patient was seen on 09/13/18. NOTE Consulted Dr Albert No need for daily FH doptones due to increasing patient's distress. VS,Fishbone, I+O VS, Fishbone, I+O Vital Signs Date Time Temp Pulse Resp B/P (MAP) Pulse Ox O2 Delivery O2 Flow Rate FiO2 09/13/18 06:06 99.7 76 20 100/51 (67) 09/11/18 23:50 100 09/11/18 23:21 Room Air Shelby Hodge CNM Sep 13, 2018 12:08
--- NOTE | 2018-09-13 12:53 | MHIPNPDOC ---
[facility] Progress Note Progress Note Inpatient Progress Note Valery Nicholson Age 33 Female Date of : 1985 Date of Service: 09/13/2018 History of Present Illness Patient, a 33-year-old woman, presented to [facility], brought in for acting fairly bizarrely and endorsing homicidal ideation by her boyfriend. She reportedly has a history of psychostimulant use, specifically methamphetamine. 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 When attempting to meet with the patient, she was so tangential and distorted that it was difficult to get a history from the patient, as she denied being yet, recently getting an ultrasound, is at roughly between 16 weeks and 20 weeks' gestation and stating that she's from [place], but also at the same time [place]. She additionally endorsed feelings that she's being chased by "hanibles" as well as "animals." She demanded to be released, but subsequently terminated her line of questioning when told that was not a gee idea at this point. The majority of the psychosocial information is derived from the chart, as the patient is unable to be redirected to answer questions. Interval History The patient is met with today where she at first requested discharge. She still is demonstrating some very bizarre ideation and has refused heart monitoring. She still maintains thoughts that she is not . When ultrasound was completed she is at roughly 21 weeks . Upon being told now went home and began crying. She did appear to be able to relay information more effectively than yesterday. However, she was fairly agitated when told that she was not able to go home, reporting that she previously was discharged in the span of a day, but continued to endorse paranoid ideation that she is being chased by various animals. Review Of Systems Unable to complete a full and comprehensive review of systems due to the patient's agitation. Psychotherapy None on this visit. Vital Signs Reviewed. Mental Status Examination General: Disheveled Speech: Less pressured Thought processes: Tangential, but more redirectable MSK: Psychomotor agitation Thought content: Paranoid Abstract reasoning, and computation: Impaired Description of associations: Loose Description of abnormal or psychotic thoughts: Bizarre and paranoid ideation. Judgment: Impaired Insight: Impaired Orientation: Alert, orientated to setting and situation better Cognition: alert, able to converse Recent and remote memory: Impaired Attention span and concentration: Improved Fund of knowledge: Unable to ascertain Mood: "I want to go home" Affect: Labile and euphoric Diagnoses Substance-induced psychotic disorder: improving Methamphetamine use disorder, severe: Stable Opioid use disorder, severe: Decompensated Tobacco use disorder, severe: Stable Marijuana use disorder, severe: Unstable Assessment and Plan The patient a 33-year-old woman with a history of substance induced psychosis presents in a fairly psychotic state. She is labile and difficult to redirect at times. She still is fairly bizarre and paranoid feeling that she is not and that she is still being chased by various animals. At this time she does appear to be making some mild improvement and thus supporting diagnoses of substance-induced psychosis. Given her being a 21 weeks, sustained neuroleptic use would be too risky for the fetus and thus observation for another few days will allow the patient to return to her baseline. Her boyfriend spoke to the operations planner who report that she's not at her baseline and is fairly distorted. PRN for agitation is ideal at this time in order to effectively balance risk and benefit for the patient given her currently impaired state. Disposition The patient will need greater than 2 midnights of inpatient admission in order to stabilize her acute psychotic episode, as she poses a high risk of danger to herself and others. Time Spent 15 minutes. Vital Signs Vital Signs Date Time Temp Pulse Resp B/P (MAP) Pulse Ox O2 Delivery O2 Flow Rate FiO2 09/13/18 06:06 99.7 76 20 100/51 (67) 09/11/18 23:50 100 09/11/18 23:21 Room Air Current Medications Current Medications Acetaminophen (Tylenol Tab) 650 mg Q6HP PRN PO HEADACHE or DISCOMFORT; Start 09/11/18 at 23:15 Al Hydrox/Mg Hydrox/Simethicone (Mylanta) 30 ml Q4HP PRN PO HEARTBURN/INDIGESTION; Start 09/11/18 at 23:15 Diphenhydramine HCl (Benadryl) 100 mg Q4HP PRN PO ANXIETY/AGITATION; Start 09/11/18 at 23:15; Stop 09/12/18 at 18:09; Status DC Diphenhydramine HCl (Benadryl) 100 mg Q4HP PRN PO ANXIETY/AGITATION; Start 09/12/18 at 18:09 Haloperidol (Haldol) 10 mg Q4HP PRN PO ANXIETY/AGITATION; Start 09/11/18 at 23:15 Home Med (Med Rec Complete!) ASDIRECTED XX ; Start 09/12/18 at 06:15; Stop 09/12/18 at 06:15; Status DC Magnesium Hydroxide (Milk Of Magnesia) 30 ml DAILYPRN PRN PO CONSTIPATION; Start 09/11/18 at 23:15 Prenat Multivit/ [place]/Iron/Folic Ac ( Vitamins) 1 tab DAILY PO Last administered on 09/12/18at 18:28; Start 09/12/18 at 09:00 Trazodone HCl (Desyrel) 50 mg QHSP PRN PO INSOMNIA; Start 09/11/18 at 23:15 Allergies Coded Allergies: No Known Allergies (Unverified , 06/15/18) EDWIN GAITAN DO Sep 13, 2018 10:25
[2018-09-13 18:00] VITALS: BP 104/56
[2018-09-14 06:38] VITALS: BP 97/60
[2018-09-14] MEDS: PRENATAL VITAMINS CHEWABLE TABLET PO SCH (09:32)
[2018-09-14 18:09] VITALS: BP 120/58
[2018-09-14] MEDS: traZODone 50 MG TAB PO PRN (20:22)
[2018-09-15 06:34] VITALS: BP 96/54
[2018-09-15] MEDS: PRENATAL VITAMINS CHEWABLE TABLET PO SCH (08:48)
[2018-09-15 18:09] VITALS: BP 91/49
[2018-09-15] MEDS: traZODone 50 MG TAB PO PRN (20:00)
[2018-09-16 06:00] VITALS: BP 96/54
[2018-09-16] MEDS: PRENATAL VITAMINS CHEWABLE TABLET PO SCH (08:56)
--- NOTE | 2018-09-16 12:23 | MHDSPDOC ---
[facility] Discharge Summary Discharge Summary DATE OF ADMISSION: Sep 11, 2018 at 23:28 DATE OF DISCHARGE:09/16/18 Discharge Valery Nicholson Age 33 Female Date of : 1985 Date of Service: 09/16/2018 Diagnoses Substance-induced psychotic disorder. Stimulant use disorder, severe. Tobacco use disorder, severe. History of Present Illness Patient, a 33-year-old woman, presented to [facility], brought in for acting fairly bizarrely and endorsing homicidal ideation by her boyfriend. She reportedly has a history of psychostimulant use, specifically methamphetami ne. 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 Consultants Involved Hospitalist screening. Treatment and Progress On The Unit The patient was admitted to the unit fairly bizarre and paranoid, believing that she was not and believing that others were chasing her. It was judged that due to the high likelihood due to her previous admissions that this was a substance-induced psychotic disorder from methamphetamine. It was judged that the risk of harming the unborn child with neuroleptics would be not outweighed b y treating the mother with neuroleptics. She subsequently resolved with no need for standing need for antipsychotics. She did fairly well in the unit, becoming much more stable over the weekend, being able to redact her paranoid ideation and engage in programming on the unit. She had no safety issues and demonstrated no psychotic ideation on discharge. 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 Mental Status Examination General: Well dressed with good hygiene Speech: Spontaneous and fluid Thought processes: Linear and logical MSK: Smooth and coordinated gait, no signs of tremors or involuntary orofacial movements Thought content: Future orientated Abstract reasoning, and computation: Intact Description of associations: Intact Description of abnormal or psychotic thoughts: Denies any suicidal or homicidal ideation. Denies any auditory or visual hallucinations. Does not appear to be responding to internal stimuli. Does not appear to be endorsing any bizarre or paranoid ideation. Judgment: fair Insight: fair Orientrossly normal Recententated 3 Cognition: Grossly normal Recent and remote memory: Intact Attention span and concentration: Intact Fund of knowledge: Adequate Mood: "okay" Affect: Euthymic with a full range Follow Up The social work team worked during the predischarge meeting in order to evaluate for further issues of lethality address them fully before discharge. They worked on safety planning with the patient's family members in order to ensure that the patient will have a safe and effective discharge. The amount of time spent in the coordination of care for this patient was approximately 30 minutes. Vital Signs/I&Os Vital Signs Date Time Temp Pulse Resp B/P (MAP) Pulse Ox O2 Delivery O2 Flow Rate FiO2 09/16/18 06:00 99.3 66 16 96/54 (68) 09/14/18 06:38 100 09/11/18 23:21 Room Air Medications No Active Prescriptions or Reported Meds Allergies Coded Allergies: No Known Allergies (Unverified , 06/15/18) EDWIN GAITAN DO Sep 16, 2018 12:23
--- NOTE | 2018-09-16 22:02 | MHIPN ---
DATE: 09/15/2018 SUBJECTIVE: "I've been doing well. People tell lies against me." OBJECTIVE: She is a 33-year-old woman who was admitted because of bizarre behavior and homicidal ideas towards her boyfriend. Reportedly, was using methamphetamine. 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 She continues to still be somewhat circumstantial, inappropriately laughing at times. She has been diagnosed with substance-induced psychotic disorder, currently on no antipsychotics. Will be seeing psychiatrist tomorrow. However, patient is having no behavioral problems. Will try to monitor her. If there is a need, will place her on antipsychotics and a referral to substance abuse rehabilitations. MENTAL STATUS EXAMINATION: She is casually dressed. She is cooperative. Made good eye contact. Mood is happy, laughing. Affect is not appropriate. Thought process is somewhat circumstantial. Has some flight of ideas. Denied any auditory or visual hallucinations. She is alert and oriented to time, place and person. Memory is intact. Her insight and judgment are limited. VITAL SIGNS: Temperature 99.1, pulse is 70, respiratory rate is 12, blood pressure is 90/54. PLAN: Continue current medications and continue psychosocial intervention. Refer to rehabilitation will be discussed with [facility]her. Estimated length of stay: 3-4 days.
== END 2018-09-16 12:35 | disposition home or self-care (01) | DRG 566 ==
LOC: M ED 18:25 → M ED INP 23:28 → M PSY 23:34
PROVIDERS: ADMIT Psychiatry & Neurology Psychiatry; ATTEND Psychiatry & Neurology Addiction Medicine
DX: O99.342 Other mental disorders complicating pregnancy, second trimester (principal); R45.850 Homicidal ideations; F19.94 Other psychoactive substance use, unspecified with psychoactive substance-induced mood disorder; F17.200 Nicotine dependence, unspecified, uncomplicated; F15.90 Other stimulant use, unspecified, uncomplicated; Z3A.21 21 weeks gestation of pregnancy

== ENCOUNTER 2018-09-17 08:36 | Emergency (ER) | payer MEDICAID, SELFPAY ==
[~2018-09-17] VITALS: Ht 165.1 cm; Wt 57.3 kg
[2018-09-17 08:36] VITALS: BP 102/51
== END 2018-09-17 09:41 | disposition left against medical advice (07) ==
LOC: M ED 08:36
DX: Z53.29 Procedure and treatment not carried out because of patient's decision for other reasons (principal)

== ENCOUNTER 2019-07-03 15:43 | Inpatient (IN) | payer MEDICAID, OTHER ==
[2019-07-02 21:45] VITALS: BP 157/100
[~2019-07-03] VITALS: Ht 167.6 cm; Wt 53.6 kg
[~2019-07-03 15:43] MED LIST changes: +HYDR1TAB33 PO; -HYDRO50TAB PO; -PARO12.5 PO; +PARO12.510 PO
[2019-07-03] MEDS ORDERED: GABA-845 PO (16:05)
[2019-07-03 16:32] LABS: HEMATOCRIT 41.8 % (36.0-47.0); HEMOGLOBIN 13.8 g/dl (12.0-15.5); MEAN CORPUSCULAR HEMOGLOBIN 30.9 pg (27.0-33.0); MEAN CORPUSCULAR VOLUME 93.5 fl (80.0-96.0); PLATELET COUNT, AUTOMATED 260 10^3/uL (150-450); RED BLOOD COUNT 4.47 10^6/uL (4.00-5.40); WHITE BLOOD COUNT 8.6 10^3/uL (4.0-10.0)
[2019-07-03 16:59] LABS: AMPHETAMINES LEVEL URINE NEGATIVE (NEGATIVE); BARBITURATES URINE NEGATIVE (NEGATIVE); BENZODIAZEPINES URINE NEGATIVE (NEGATIVE); CANNABINOIDS URINE POSITIVE (NEGATIVE); COCAINE METABOLITE URINE NEGATIVE (NEGATIVE); METHADONE URINE POSITIVE (NEGATIVE); OPIATES URINE NEGATIVE (NEGATIVE); PHENCYCLIDINE URINE NEGATIVE (NEGATIVE)
[2019-07-03 17:01] LABS: ACETAMINOPHEN LEVEL < 2.0 UG/ML (10.0-30.0); ALBUMIN 3.2 GM/DL (3.2-5.2); ALT/SGPT 16 U/L (12-78); BILIRUBIN,DIRECT < 0.1 MG/DL (0.0-0.2); BILIRUBIN,TOTAL 0.2 MG/DL (0.2-1.0); BLOOD UREA NITROGEN 4 MG/DL (7-18); CALCIUM LEVEL 8.4 MG/DL (8.5-10.1); CARBON DIOXIDE LEVEL 25 MEQ/L (21-32); CHLORIDE LEVEL 109 MEQ/L (98-107); CPK CREATINE PHOSPHOKINASE 51 U/L (26-192); ETHYL ALCOHOL (ETHANOL) 0.055 % (0.000-0.010); GLOMERULAR FILTRATION RATE > 60.0 (>60); GLUCOSE, FASTING 91 MG/DL (70-100); SODIUM LEVEL 140 MEQ/L (136-145); THYROID STIMULATING HORMONE 0.981 uIU/ML (0.358-3.740); TOTAL PROTEIN 6.1 GM/DL (6.4-8.2)
[2019-07-03 17:14] LABS: HCG, SERUM QUALITATIVE NEGATIVE (NEGATIVE)
[2019-07-03] MEDS ORDERED: traZODone 50 MG TAB PO PRN (18:30)
[2019-07-03] MEDS ORDERED: ACETAMINOPHEN TAB 650MG DOSE (2X325MG) PO PRN (18:30)
[2019-07-03] MEDS ORDERED: MOM 30ML SUSPENSION UDC PO PRN (18:30)
[2019-07-03] MEDS ORDERED: OLANZapine 5 MG TAB PO PRN (18:30)
[2019-07-03] MEDS ORDERED: OLANZapine ORAL DISINTEGRATING TAB 5MG PO STA (18:46)
[2019-07-03 19:31] VITALS: BP 143/63
[2019-07-03] MEDS ORDERED: LORazepam 2 MG/ML VIAL (J2060) IM STA (21:39)
[2019-07-03] MEDS ORDERED: HALOPERIDOL 5MG/ML VIAL (J1630 PER 1) IM STA (21:39)
[2019-07-03] MEDS ORDERED: diphenhydrAMINE 50MG/ML VIAL (J1200) IM STA (21:39)
[2019-07-03 22:15] VITALS: BP 135/80
[2019-07-03 23:45] VITALS: BP 135/70
[2019-07-04 06:31] VITALS: BP 97/52
--- NOTE | 2019-07-04 09:26 | MHHPEPDOC ---
[facility] History & Physical History and Physical DATE OF ADMISSION: Jul 03, 2019 at 18:23 New Patient Valery Nicholson Age 34 Female Date of : 1985 Date of Service: 07/04/2019 Chief Complaint "I do not know why they called them on me." History of Present Illness The patient a 34-year-old woman with a history of substance-abuse psychosis presents with an unusual behavior. She is on long-term methadone. Patient reportedly was acting bizarre when she met with her outpatient psychiatrist. When the patient met with she stated that she was unclear as to why this would happen, but had difficulty remembering the events. She does have a long history of substance abuse and she reports that she has been feeling much better and appears primarily interested in being discharged. She reports no major social changes or other psychiatric changes other than the above. Review Of Systems Depression: No changes.. Anxiety: No changes. Marilia: No changes. Psychotic: As above. Trauma: No changes. Borderline: No changes. Past Psychiatric History Was last admitted in September 2018 with substance-induced psychosis, had been previously on various antipsychotics. Currently is on gabapentin, previously had been on Adderall. Sees Dr. Story at this time. No reported history of suicide attempts. Allergies Please see below. Family Psychiatric History The patient denies/is unaware any history of mental health history including addictions and suicide. Social History The patient is a never woman who currently lives with friends and family in a rented home, reportedly gets well-well in her household. She has several children who currently live with her. She does not have CPS involved. 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 Has no income. Highest grade was in seventh grade. Grew up with parents, and poor relationship. Substance Abuse History Has an extensive history of substance-abuse mainly methamphetamine, currently on methadone at [facility]. Medical History Has had chronic back surgery. Mental Status Examination General: Well dressed with good hygiene Speech: Spontaneous and fluid Thought processes: Linear and logical MSK: Smooth and coordinated gait, no signs of tremors or involuntary orofacial movements Thought content: Future orientated Abstract reasoning, and computation: Intact Description of associations: Intact Description of abnormal or psychotic thoughts: Denies any suicidal or homicidal ideation. Denies any auditory or visual hallucinations. Does not appear to be responding to internal stimuli. Does not appear to be endorsing any bizarre or paranoid ideation. Judgment: Chronically limited Insight: Chronically limited Orientation: Alert and orientated 3 Cognition: Grossly normal Recent and remote memory: Intact Attention span and concentration: Intact Fund of knowledge: Adequate Mood: "okay" Affect: Euthymic with a full range Diagnoses Unspecified psychotic disorder. Highly likely substance induced. Methamphetamine use disorder, severe. Opioid use disorder, severe. Tobacco use disorder, unspecified. Cannabis use disorder, severe. Alcohol use disorder, mild. Assessment and Plan Unspecified psychotic disorder: We'll continue to monitor overnight and if continues to resolve as expected as she has done prior, we'll discharge tomorrow. She will meet 48-hour bruce for being discharged. It is highly likely that it's substance-induced, I spoke to her outpatient provider Dr. Schumacher and it appears that she has generally focused on being intoxicated and has only appeared to him shortly sober, but primarily tries to achieve Adderall and other substances. Polysubstance use: Monitor for any signs of withdrawal. Tobacco use disorder: Nicotine replacement. Disposition Patient will be observed overnight and discharge tomorrow if she continues to improve and be stable. Problem List 1. Altered thoughts. Initial Treatment Plan 1. Patient was admitted on a 9.39 legal status. 2. Complete history was obtained. 3. With patients permission, family will be contacted and database will be expanded. 4. Patients medication regimen will be reviewed and changed accordingly. 5. Patient will be provided with protected environment. 6. Patient will be treated with individual, group, and milieu therapies. 7. Patient will receive supportive psych-education. 8. Discharge planning will commence immediately. 9. Outpatient follow-up treatment will be strongly recommended. 10. The initial treatment plan will focus initially on: Estimated Length Of Stay 2 days. Time Spent 70 minutes with greater than 50% of time spent on counseling/coordination of care. Sunday Vital Signs Vital Signs Date Time Temp Pulse Resp B/P (MAP) Pulse Ox O2 Delivery O2 Flow Rate FiO2 07/04/19 06:31 98.6 87 12 97/52 (67) 99 Room Air Laboratory Data 24H Labs Laboratory Tests 2 07/03/19 16:14: Nucleated Red Blood Cells % (auto) 0.0, Anion Gap 6L, Glomerular Filtration Rate > 60.0, Calcium Level 8.4L, Total Bilirubin 0.2, Direct Bilirubin < 0.1, Aspartate Amino Transf (AST/SGOT) 13, Alanine Aminotransferase (ALT/SGPT) 16, Alkaline Phosphatase 59, Total Creatine Kinase 51, Total Protein 6.1L, Albumin 3.2, Albumin/Globulin Ratio 1.10, Thyroid Stimulating Hormone (TSH) 0.981, Human Chorionic Gonadotropin, Qual NEGATIVE, Salicylates Level 6.0, Acetaminophen Level < 2.0L, Ethyl Alcohol Level 0.055H 07/03/19 16:19: Urine Opiates Screen NEGATIVE, Urine Methadone Screen POSITIVEH, Urine Barbiturates Screen NEGATIVE, Urine Phencyclidine Screen NEGATIVE, Urine Amphetamines Screen NEGATIVE, Urine Benzodiazepines Screen NEGATIVE, Urine Cocaine Metabolite Screen NEGATIVE, Urine Cannabinoids Screen POSITIVEH CBC/BMP Laboratory Tests 07/03/19 16:14 Medications Scheduled Gabapentin (Gabapentin) 400 Mg Capsule, 1 TAB PO TID, (Reported) Allergies Coded Allergies: No Known Allergies (Unverified , 06/15/18) EDWIN GAITAN DO Jul 04, 2019 09:26
--- NOTE | 2019-07-04 13:58 | ECGEPIP ---
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
[2019-07-04] MEDS: GABAPENTIN 300 MG CAP PO SCH ×2 (16:22→20:24)
--- NOTE | 2019-07-04 17:09 | HPEPDOC ---
General Date of Admission Jul 03, 2019 at 18:23 Date of Service: Jul 04, 2019 Attending Physician: CHEN MARK MD Chief Complaint The patient is a 34-year-old female admitted with a reason for visit of Unspecified Psychotic Disorder. Source: Patient, RN notes reviewed, EMS notes reviewed Exam Limitations: No limitations History of Present Illness 34yo W yo with a history of PSUD, prior admissions for substance induced psychosis and bipolar disorder? per prior notes, who was brought in per recommendation of her psychiatrist when she presented to her behavioral health appointment and was expressing bizzare behavior. In the ED, was incoherent and later was claiming to be Jacinda Brito and later Adilene Ybarra, while professing that she loves Mehradd Landin. Studies were notable for tox screen that was positive for methadone and marijuana with otherwise a normal CBC and BMP. She was subsequently admitted to the [facility] for acute psychosis and medicine is now consulted for medical evaluation. Home Medications Scheduled Gabapentin (Gabapentin) 400 Mg Capsule, 1 TAB PO TID, (Reported) Allergies Coded Allergies: No Known Allergies (Unverified , 06/15/18) Past Medical History Medical History PSUD prior [facility] admissions for substance induced psychosis mention in a prior H&P that she has a diagnosis of bipolar disorder Surgical History Back surgery Family History Significant Family History: Other (Mother and sister also have a reported history of bizzare behavior?) Social History * Smoker: Denies Alcohol: Denies Drugs: marijuana, other (methadone) Recent Travel/Sick Contacts: Denies: Recent travel, Recent sick contacts Psychosocial History: Bipolar, Other (psychosis) A-FIB/CHADSVASC A-FIB History Current/History of A-Fib/PAF?: No Current PO Anticoag Therapy: No Age/Risk Factor Scoring CHADSVASC: CHADSVASC Response (Comments) Value Age Risk Factor Age < 65 years old 0 Gender Risk Factor Female 1 Hx of CHF No 0 Hx of HTN No 0 Hx of Stroke/TIA/or VTE No 0 Hx of Diabetes No 0 Hx of Vascular Disease No 0 Total 1 Treatment Treatment ordered: NONE Reason Anticoagulant not given: Not indicated/[id number] Review of Systems Constitutional: Denies: Chills, Fever, Night Sweats Eyes: Denies: Pain, Vision change ENT: Denies: Head Aches, Ear Pain, Dysphagia Skin: Denies: Rash, Lesions, Breakdown Pulmonary: Denies: Dyspnea, Cough, Pleuritic Chest Pain, Other Symptoms Cardiovascular: Denies: Chest Pain, Palpitations, Orthopnea, Paroxysmal Noc. Dyspnea, Lt Headedness Gastrointestinal: Denies: Nausea, Vomiting, Abdominal Pain, Diarrhea Genitourinary: Denies: Dysuria, Frequency, Incontinence, Retention Hematologic: Denies: Bruising, Bleeding Excessively Endocrine: Denies: Polydipsia, Polyphagia, Polyuria, Heat Intolerance, Cold Intolerance, Other Endocrine Sx Musculoskeletal: Denies: Neck Pain, Back Pain, Joint Pain, Muscle Pain, Spasms Neurological: Denies: Weakness, Numbness, Change in speech, Confusion Psych: Reports: Mood Normal; Denies: Depression, Thoughts of Self Harm, Thoughts of Harming Other Physical Examination General Exam: Positive: Alert, No Acute Distress, Other (pleasant, cooperative) Eye Exam: Positive: PERRLA, Conjunctiva & lids normal, EOMI; Negative: Sclera icteric ENT Exam: Positive: Atraumatic, Mucous membr. moist/pink, Pharynx Normal, Other ENT (poor dentition) Neck Exam: Positive: Supple; Negative: JVD, thyromegaly Chest Exam: Positive: Clear to auscultation, Normal air movement Heart Exam: Positive: Rate Normal, Regular Rhythm, Normal S1, Normal S2; Negative: Murmurs, Rubs Abdomen Exam: Positive: Normal bowel sounds, Soft; Negative: Tenderness, Hepatospenomegaly Extremity Exam: Positive: Normal pulses; Negative: Clubbing, Cyanosis, Edema Skin Exam: Positive: Nl turgor and temperature; Negative: Breakdown, Lesion Neuro Exam: Positive: Normal Gait, Normal Speech, Cranial Nerves 3-12 NL, Reflexes 2+ Psych Exam: Positive: Oriented x 3 (Oriented to self, location and day of the week, month, year) Vital Signs Vital Signs Date Time Temp Pulse Resp B/P (MAP) Pulse Ox O2 Delivery O2 Flow Rate FiO2 07/04/19 06:31 98.6 87 12 97/52 (67) 99 Room Air Assessment/Plan 34 yo W with a history of PSUD, previously admitted to the [facility] with substance induced psychosis who was brought in per recommendation of her mental health provider after noted bizzare behavior at her appointment and found to have recent ingestion of methadone and marijuana on her toxicology screen, now admitted to the [facility] for acute psychosis. She denies being a smoker, alcohol consumption, prior medical problems and is not on any home medication. Her work up was otherwise unremarkable outside of the positive toxicology screen. On my evaluation, she had an unremarkable physical examination. At this time, I will sign off and defer psychiatric treatment for her acute psychosis and PSUD to the primary team. Please do not hesitate to reconsult with any medical issues. Plan / VTE VTE Prophylaxis Ordered?: No VTE Exclusion Mechanical Proph: Low Risk for VTE VTE Exclusion Pharmacological: At Low Risk for VTE CHEN MARK MD Jul 04, 2019 17:09
[2019-07-04 18:00] VITALS: BP 107/64
[2019-07-05 06:04] VITALS: BP 92/50
[2019-07-05] MEDS: GABAPENTIN 300 MG CAP PO SCH (08:06)
--- NOTE | 2019-07-05 18:18 | MHDSPDOC ---
[facility] Discharge Summary Discharge Summary DATE OF ADMISSION: Jul 03, 2019 at 18:23 DATE OF DISCHARGE: Jul 05, 2019 at 08:40 Discharge Valery Nicholson Age 34 Female Date of : 1985 Date of Service: 07/05/2019 Diagnoses Unspecified psychotic disorder. Highly likely substance induced. Methamphetamine use disorder, severe. Opioid use disorder, severe. Tobacco use disorder, unspecified. Cannabis use disorder, severe. Alcohol use disorder, mild. History of Present Illness The patient a 34-year-old woman with a history of substance-abuse psychosis presents with an unusual behavior. She is on long-term methadone. Patient reportedly was acting bizarre when she met with her outpatient psychiatrist. When the patient met with she stated that she was unclear as to why this would happen, but had difficulty remembering the events. She does have a long history of substance abuse and she reports that she has been feeling much better and appears primarily interested in being discharged. She reports no major social changes or other psychiatric changes other than the above. Consultants Involved Hospitalist/PCP screening Treatment and Progress On The Unit The patient was admitted to inpatient mental health unit initially psychotic. She resolved quite quickly consistent with her substance induced psychosis. She improved well and on the first day of meeting her she had improved roughly 90%. She saw some pressured speech that was very mild, but likely would resolve very quite quickly without any need for anti-psychotics. She is well known to this provider from previous times where she is presented psychotic, she is likely using some synthetics. She reports that she has not been using, however, she does report she continues to use cannabis. She gets methadone at the outpatient [facility]. I spoke with her outpatient psychiatrist who reports concerns as she is fairly intoxicated most times and has attempted to convince him to give her Adderall. The patient has been attending outpatient treatment. She was observed for 48 hours where she had no major behavioral problems and had been consistently denying suicidal ideation, homicidal ideation and had a more less normal mental status being no danger to herself or others. She was arranged to be discharged the following day after a mental status exam by on-call psychiatrist as she had requested the go would be unlikely to meet criteria to be held against her will. Discharge Assessment 34-year-old woman with likely substance induced psychosis presents after likely using synthetic substances becoming bizarre and being brought in. The patient was discharged, however, the MSE was not done as she was discharged prior to acknowledging the full order requiring the MSE to be completed, however, from the chart it appears that the patient generally had been continuing from the previous assessment and would been highly unlikely to be kept against her will or that a full MSE would have changed the treatment plan in any great sense. Mental Status Examination Please refer to previous MSE. Follow Up The social work team worked during the predischarge meeting in order to evaluate for further issues of lethality address them fully before discharge. They worked on safety planning with the patient's family members in order to ensure that the patient will have a safe and effective discharge. Time Spent The amount of time spent in the coordination of care for this patient was approximately 45 minutes. Sunday Vital Signs/I&Os Vital Signs Date Time Temp Pulse Resp B/P (MAP) Pulse Ox O2 Delivery O2 Flow Rate FiO2 07/05/19 06:04 98.7 81 16 92/50 (64) 96 Room Air Medications Scheduled Gabapentin (Gabapentin) 400 Mg Capsule, 1 TAB PO TID, (Reported) Allergies Coded Allergies: No Known Allergies (Unverified , 06/15/18) EDWIN GAITAN DO Jul 05, 2019 18:18
== END 2019-07-05 08:40 | disposition home or self-care (01) | DRG 754 ==
LOC: M ED 15:43 → M ED INP 18:23 → M PSY 19:30
PROVIDERS: ADMIT Psychiatry & Neurology Psychiatry; ATTEND Psychiatry & Neurology Addiction Medicine
DX: F32.9 Major depressive disorder, single episode, unspecified (principal); F19.94 Other psychoactive substance use, unspecified with psychoactive substance-induced mood disorder; F11.90 Opioid use, unspecified, uncomplicated; F17.200 Nicotine dependence, unspecified, uncomplicated; F10.10 Alcohol abuse, uncomplicated; F15.90 Other stimulant use, unspecified, uncomplicated; Z79.899 Other long term (current) drug therapy

== ENCOUNTER 2019-08-26 20:13 | Emergency (ER) | payer MEDICAID, OTHER ==
[~2019-08-26 20:13] MED LIST changes: +GABA-845 PO
== END 2019-08-26 21:24 | disposition left against medical advice (07) ==
LOC: M ED 20:13
DX: F99 Mental disorder, not otherwise specified (principal); Z53.20 Procedure and treatment not carried out because of patient's decision for unspecified reasons

== ENCOUNTER 2020-06-06 07:06 | Emergency (ER) | payer OTHER ==
[~2020-06-06] VITALS: Ht 162.6 cm; Wt 63.2 kg
[2020-06-06 07:06] VITALS: BP 130/74
[2020-06-06] MEDS ORDERED: IBUP80TA (07:12)
== END 2020-06-06 08:26 | disposition left against medical advice (07) ==
LOC: M ED 07:06
DX: K08.89 Other specified disorders of teeth and supporting structures (principal); Z53.9 Procedure and treatment not carried out, unspecified reason; F41.9 Anxiety disorder, unspecified; F32.9 Major depressive disorder, single episode, unspecified; F19.10 Other psychoactive substance abuse, uncomplicated; F17.200 Nicotine dependence, unspecified, uncomplicated

== ENCOUNTER → 2020-07-12 | Outpatient (REF) | payer OTHER ==
[~2020-07-12] MED LIST changes: +IBUP80TA
[2020-07-12 17:37] LABS: HEMATOCRIT 36.1 % (36.0-47.0); HEMOGLOBIN 11.7 g/dl (12.0-15.5); MEAN CORPUSCULAR HEMOGLOBIN 29.5 pg (27.0-33.0); MEAN CORPUSCULAR HGB CONC 32.4 g/dl (32.0-36.5); MEAN CORPUSCULAR VOLUME 91.2 fl (80.0-96.0); PLATELET COUNT, AUTOMATED 148 10^3/uL (150-450); RED BLOOD COUNT 3.96 10^6/uL (4.00-5.40); WHITE BLOOD COUNT 9.9 10^3/uL (4.0-10.0)
[2020-07-12 17:52] LABS: GLUCOSE CHALLENGE TEST 1 HOUR 115 MG/DL (LESS THAN 140)
[2020-07-12 18:46] LABS: HIV 1&2 SCREEN CENTAUR NEGATIVE (NEGATIVE)
[2020-07-12 19:06] LABS: HEPATITIS C VIRUS ABY INDEX < 0.0 INDEX (<0.8)
== END ==
LOC: M PLALAB 13:21
PROVIDERS: ATTEND Obstetrics & Gynecology
DX: O34.212 Maternal care for vertical scar from previous cesarean delivery (principal)

== ENCOUNTER → 2020-07-14 | Outpatient (REF) | payer OTHER | LOC: M PLALAB 09:20 | PROVIDERS: ATTEND Obstetrics & Gynecology | DX: Z34.83 Encounter for supervision of other normal pregnancy, third trimester (principal); Z3A.36 36 weeks gestation of pregnancy ==

== ENCOUNTER 2020-08-07 15:51 | Outpatient (CLI) | payer OTHER ==
[~2020-08-07] VITALS: Ht 162.6 cm; Wt 63.8 kg
[~2020-08-07 15:51] MED LIST changes: +GABA-283 PO; -GABA-845 PO
[2020-08-07 16:06] VITALS: BP 126/90
[2020-08-07 17:21] LABS: HEMATOCRIT 36.3 % (36.0-47.0); MEAN CORPUSCULAR HEMOGLOBIN 29.6 pg (27.0-33.0); MEAN CORPUSCULAR HGB CONC 33.1 g/dl (32.0-36.5); MEAN CORPUSCULAR VOLUME 89.6 fl (80.0-96.0); PLATELET COUNT, AUTOMATED 183 10^3/uL (150-450); RED BLOOD COUNT 4.05 10^6/uL (4.00-5.40); WHITE BLOOD COUNT 11.9 10^3/uL (4.0-10.0)
[2020-08-07 17:43] VITALS: BP 117/61
[2020-08-07 17:47] LABS: INR 0.82; PROTHROMBIN TIME 11.5 SECONDS (12.5-14.3)
[2020-08-07 17:48] LABS: PARTIAL THROMBOPLASTIN TIME 25.9 SECONDS (24.2-38.5)
--- NOTE | 2020-08-07 18:02 | REP ---
INDICATION: Bleeding. No official US EDC assignment. EDC by LMP 09/07/20 COMPARISON: None. TECHNIQUE: Transabdominal obstetrical ultrasound with color Doppler evaluation. FINDINGS: Examination demonstrates a single live intrauterine in cephalic presentation. motion is identified by technologist. Placenta is noted anteriorly and grade 1/2 without evidence for placenta previa or abruption. Amniotic fluid volume is decreased. Cervix measures 4.2 cm in length and appears closed. Gestational age by LMP 35 weeks 4 days with KELSEY 09/07/2020. Gestational age by current measurements 35 weeks 5 days with KELSEY 09/06/2020. FHR equals 128 beats per minute. Estimated weight 2792 grams (61stpercentile). MAKENZIE: 5.3 cm (7.8-24.9) Umbilical artery SD ratio: 2.18 (1.65-3.54) IMPRESSION: Single live advanced gestation in cephalic presentation. Amniotic fluid volume is below normal range. <Electronically signed by Chance Franklin > 08/07/20 0828
[2020-08-07 18:22] LABS: AMPHETAMINES URINE REFLEX NEGATIVE (NEGATIVE); BARBITURATES URINE REFLEX NEGATIVE (NEGATIVE); BENZODIAZEPINES URINE REFLEX NEGATIVE (NEGATIVE); COCAINE METABOLITE URINE REFLE NEGATIVE (NEGATIVE); METHADONE URINE REFLEX NEGATIVE (NEGATIVE); OPIATES URINE REFLEX NEGATIVE (NEGATIVE); PHENCYCLIDINE URINE REFLEX NEGATIVE (NEGATIVE)
[2020-08-07 18:24] LABS: CANNABINOIDS URINE REFLEX PENDING CONFIRMATION (NEGATIVE)
[2020-08-07] MEDS ORDERED: BETAMETHASONE SOLUSPAN 6MG/ML 5ML VIAL (J0702 PER 3MG) IM ONE (18:25)
--- NOTE | 2020-08-07 20:52 | IPNPDOC ---
Obstetrical Progress Note Date of Service August 07, 2020 Subjective 35-year-old G4, P3 003 at 35+4 weeks gestation. Presented with complaint of a small amount of bright red bleeding and passage of a small clot. She denies any significant abdominal pain or uterine contractions. Denies large loss of fluid. Reports regular movement. course: Poor, noncompliant medical care/inconsistent with visits. Consistent marijuana use during ; history of drug abuse h/o LTCS x 3 (desires BTL) Normotensive. Normal heart rate. Afebrile Heart regular rate and rhythm Lungs clear to auscultation bilaterally Abdomen nontender, nondistended. Uterine fundus, nontender Extremities nonedematous, nontender Pelvic: Cervix visually closed, small amount of bright red blood trickling from the os. EFM: Category 1/reactive, moderate variability, rare variable deceleration Pinhook: No regular/frequent contraction pattern detected Vital Signs Date Time Temp Pulse Resp B/P (MAP) Pulse Ox O2 Delivery O2 Flow Rate FiO2 08/07/20 17:43 103 117/61 (79) 08/07/20 16:06 99.0 120 18 126/90 (102) Laboratory Tests 08/07/20 17:11: White Blood Count 11.9H, Red Blood Count 4.05, Hemoglobin 12.0, Hematocrit 36.3, Mean Corpuscular Volume 89.6, Mean Corpuscular Hemoglobin 29.6, Mean Corpuscular Hemoglobin Concent 33.1, Red Cell Distribution Width 13.2, Platelet Count 183, Nucleated Red Blood Cells % (auto) 0.0, Prothrombin Time 11.5L, Prothromb Time International Ratio 0.82, Activated Partial Thromboplast Time 25.9, Fibrinogen 462H 08/07/20 17:42: Urine Opiates Screen NEGATIVE, Urine Methadone Screen NEGATIVE, Urine Barbiturates Screen NEGATIVE, Urine Phencyclidine Screen NEGATIVE, Urine Amphetamines Screen NEGATIVE, Urine Benzodiazepines Screen NEGATIVE, Urine Cocaine Metabolite Screen NEGATIVE, Urine Cannabinoids Screen PENDING CONFIRMATIONH, Urine Cannabinoids Confirmation [Pending] FINDINGS: Examination demonstrates a single live intrauterine in cephalic presentation. motion is identified by technologist. Placenta is noted anteriorly and grade 1/2 without evidence for placenta previa or abruption. A mniotic fluid volume is decreased. Cervix measures 4.2 cm in length and appears closed. Gestational age by LMP 35 weeks 4 days with KELSEY 09/07/2020. Gestational age by current measurements 35 weeks 5 days with KELSEY 09/06/2020. FHR equals 128 beats per minute. Estimated weight 2792 grams (61stpercentile). MAKENZIE: 5.3 cm (7.8-24.9) Umbilical artery SD ratio: 2.18 (1.65-3.54) IMPRESSION: Single live advanced gestation in cephalic presentation. Amniotic fluid volume is below normal range. A/P: 35yo at 35+4 weeks. Possible non-acute placental abruption, borderline oligohydramnios. She was offered a course betamethasone in a nticipation of possible delivery becoming indicated. She was not willing to stay in the hospital for observation and she left against medical advice. She was counseled regarding the possibility of progression to acute placental abruption. States she will return tomorrow for her repeat dose of betamethasone. She was advised to return immediately if bleeding increases, FKC decreases, and/or if she has significant abdominal/pelvic pain (in addition to other third trimester labs). Objective Vital Signs Date Time Temp Pulse Resp B/P (MAP) Pulse Ox O2 Delivery O2 Flow Rate FiO2 08/07/20 17:43 103 117/61 (79) 08/07/20 16:06 99.0 18 JOSE PICHARDO DO August 07, 2020 20:52
== END 2020-08-07 18:35 | disposition home or self-care (01) ==
LOC: M LDO 15:51
PROVIDERS: ATTEND Obstetrics & Gynecology
DX: O46.93 Antepartum hemorrhage, unspecified, third trimester (principal); Z3A.35 35 weeks gestation of pregnancy; O09.33 Supervision of pregnancy with insufficient antenatal care, third trimester; O34.211 Maternal care for low transverse scar from previous cesarean delivery; F12.10 Cannabis abuse, uncomplicated; Z91.19 Patient's noncompliance with other medical treatment and regimen; O99.323 Drug use complicating pregnancy, third trimester
CPT/HCPCS: 36415; 59025; 76811; 76820; 80307; 85027; 85384; 85460; 85610; 85730; 96372; G0480; J0702

== ENCOUNTER 2020-08-10 10:45 | Inpatient (IN) | payer OTHER ==
[~2020-08-10] VITALS: Ht 165.1 cm; Wt 140.0 kg
[2020-08-10] VITALS (7 sets, daily range): BP systolic 129–146; BP diastolic 75–89
[2020-08-10] MEDS ORDERED: LR 1,000 ML IV SCH ×2 (11:10→13:10)
[2020-08-10] MEDS ORDERED: BICITRA 30ML SOLN UDC PO ONE (11:10)
[2020-08-10] MEDS ORDERED: ceFAZolin SOD 2 GM in IV 1 EA IV ONE (11:10)
[2020-08-10] MEDS ORDERED: LACTATED RINGER'S 1000 ML IV STA (11:10)
[2020-08-10] MEDS ORDERED: propofoL 200 MG/20 ML VIAL As Ordered ONE (11:46)
[2020-08-10] MEDS ORDERED: LIDOCAINE 2% 100MG/5ML SDV (FOR ANES.) As Ordered ONE (11:46)
[2020-08-10] MEDS ORDERED: SUCCINYLCHOLINE 100 MG/5 ML SYRINGE (J0330) As Ordered ONE (11:47)
[2020-08-10] MEDS ORDERED: ONDANSETRON 4MG/2ML VIAL As Ordered ONE (11:48)
[2020-08-10 11:49] LABS: HEMATOCRIT 40.1 % (36.0-47.0); HEMOGLOBIN 13.6 g/dl (12.0-15.5); MEAN CORPUSCULAR HGB CONC 33.9 g/dl (32.0-36.5); MEAN CORPUSCULAR VOLUME 88.3 fl (80.0-96.0); PLATELET COUNT, AUTOMATED 226 10^3/uL (150-450); RED BLOOD COUNT 4.54 10^6/uL (4.00-5.40); WHITE BLOOD COUNT 19.4 10^3/uL (4.0-10.0)
[2020-08-10] MEDS ORDERED: dexameTHASONE 4 MG/ML 1ML VIAL (J1100 PER 1MG) As Ordered ONE (11:49)
[2020-08-10] MEDS ORDERED: OXYTOCIN INJ 10 UNITS/ML VIAL (J2590) As Ordered ONE (11:50)
[2020-08-10] MEDS ORDERED: MIDAZOLAM INJ 2MG/2ML VIAL (J2250 PER 1MG) As Ordered ONE (12:04)
[2020-08-10] MEDS ORDERED: fentaNYL 100 MCG/2 ML INJECTION (J3010) As Ordered ONE ×2 (12:12→12:54)
[2020-08-10 12:31] LABS: CORD GAS ABE V -5.5; CORD GAS HCO3 V 21.1 MEQ/L; CORD GAS PCO2 V 44.6 mmHg; CORD GAS PH V 7.292 UNITS; CORD GAS PO2 V 28.7 mmHg; CORD GAS SBC V 19.4 MEQ/L; CORD GAS TCO2 V 22.4 MEQ/L
[2020-08-10 12:32] LABS: CORD GAS ABE A -4.6; CORD GAS HCO3 A 25.1 MEQ/L; CORD GAS O2 SAT A 80.7 %; CORD GAS PCO2 A 65.3 mmHg; CORD GAS PH A 7.202 UNITS; CORD GAS PO2 A 36.8 mmHg; CORD GAS SBC A 20.3 MEQ/L; CORD GAS TCO2 A 27.1 MEQ/L
[2020-08-10] MEDS ORDERED: KETOROLAC 30 MG/ML 1ML VIAL As Ordered ONE (12:54)
[2020-08-10] MEDS: fentaNYL 100 MCG/2 ML INJECTION (J3010) IV PRN ×4 (13:00→13:15)
[2020-08-10] MEDS ORDERED: KETOROLAC 30 MG/ML 1ML VIAL IV SCH (13:00)
[2020-08-10] MEDS ORDERED: MEASLES,MUMPS,RUBELLA VACCINE INJ (MMR-II) (90707) SC SCH (13:10)
[2020-08-10] MEDS ORDERED: OXYTOCIN DRIP 30 UNITS in IV 1 EA IV SCH (13:10)
[2020-08-10] MEDS ORDERED: RHOGAM 300 MCG (1500 IU) INJ (J2790) IM SCH (13:10)
[2020-08-10] MEDS ORDERED: DOCUSATE SODIUM 100MG CAPSULE PO PRN (13:10)
[2020-08-10] MEDS ORDERED: ONDANSETRON 4MG/2ML VIAL IV PRN ×2 (13:10→13:25)
[2020-08-10] MEDS ORDERED: SIMETHICONE 80MG CHEW TAB PO PRN (13:10)
[2020-08-10] MEDS ORDERED: oxyCODONE 5MG TAB PO PRN ×2 (13:10)
[2020-08-10 13:12] LABS: AMPHETAMINES URINE REFLEX NEGATIVE (NEGATIVE); BARBITURATES URINE REFLEX NEGATIVE (NEGATIVE); BENZODIAZEPINES URINE REFLEX NEGATIVE (NEGATIVE); COCAINE METABOLITE URINE REFLE NEGATIVE (NEGATIVE); METHADONE URINE REFLEX NEGATIVE (NEGATIVE); OPIATES URINE REFLEX NEGATIVE (NEGATIVE); PHENCYCLIDINE URINE REFLEX NEGATIVE (NEGATIVE)
[2020-08-10 13:16] LABS: CANNABINOIDS URINE REFLEX PENDING CONFIRMATION (NEGATIVE)
[2020-08-10] MEDS ORDERED: MIDAZOLAM INJ 2MG/2ML VIAL (J2250 PER 1MG) IV PRN (13:25)
[2020-08-10] MEDS ORDERED: METOCLOPRAMIDE INJ 10MG/2ML VIAL (J2765 PER 1) IV PRN (13:25)
[2020-08-10] MEDS ORDERED: MEPERIDINE INJ 25 MG/ML VIAL (J2175) IV PRN (13:25)
[2020-08-10] MEDS: HYDROMORPHONE HCL 0.5 MG/ 0.5 ML SYRINGE (J1170 PER 1) IV PRN ×4 (13:31→14:09)
--- NOTE | 2020-08-10 15:31 | ROOPDOC ---
[facility] Report Of Operation Report of Operation DATE OF PROCEDURE: 08/10/20 Report of operation Preoperative diagnosis: 36 0/7 weeks, labor, prior section Postoperative diagnosis: same Procedure: Repeat low transverse section and bilateral tubal ligation. Surgeon: Ryann Way M.D. Asst.: Hardik Pate MD EBL: 500 ml. Urine output: 100 mL's. Findings: 5 lbs. 4 oz. male , Apgars 9 and 9 g normal uterus, fallopian tubes, ovaries. Operative summary: Patient taken to the operating room where general endotracheal anesthesia was induced. She was prepped and draped sterile fashion in the supine position. A Doyle catheter was placed. A Pfannenstiel skin incision was made with scalpel. Fascia was incised and extended bilaterally. The peritoneal cavity was entered. A Mobius retractor was placed. A bladder flap was created. A curvilinear incision was made in lower uterine segment until Clear fluid was noted. The incision was extended manually. The infant was delivered from the vertex position without difficulty. Cord was doubly clamped and cut. The was handed to awaiting team. The placenta was expressed. Uterus was closed with O-Vicryl in a running locked fashion. A second imbricati ng layer of Vicryl was placed. Attention was turned to the fallopian tubes. A Vitaliy clamp was used to grasp the fallopian tubes at the midportion. A window was created in the broad ligament free tie of 2-0 chromic was placed around the segment of tube on either side of the clamp. A Segment of tube was excised bilaterally and sent to pathology. Peritoneum was closed with 2-0 Vicryl a running fashion. Fascia was closed with 0 Vicryl in running fashion. Skin was closed 4-0 Monocryl subcuticular sutures. Sponge, instrument and needle counts were correct. Hardik Pate, assisted with all aspects of the procedure. He helped close each layer of the incision and deliver the fetus. RYANN WAY MD Aug 10, 2020 15:31
--- NOTE | 2020-08-10 15:41 | HPEPDOC ---
Obstetrical History & Physical General Date of Admission Aug 10, 2020 at 11:05 History of Present Illness 35 yo female at 36 0/7 weeks gestation by third trimester ultrasound (EDC=09/07/2020) presents with painful contractions for an uncertain amount of time. She has a small amount of bleeding. She has had at least two prior cesarea nsections. She has ah/o drug induced psychosis. Information Provided By: Patient, Other (PT has a transplant nurse ppresent) Care Care: Limited Care Dating Final EDC: Sep 07, 2020 Final EDC by: 3rd trimester (US) Antepartum Course Diagnos(e)s Limited care h/o drug us, including methamphetamine Past Medical History Past Obstetrical History : Past Obstetrical History: Multigravida Past Medical History Medical History ob hx: 08/2016 section 08/2017 section med hx: drug induced psychosis illiciit drug use, including methamphetamine Family History Significant Family History: Unable to assess Social History * Smoker: current smoker Drugs: other (methamphetamine) Allergies Coded Allergies: acetaminophen (Verified Allergy, Mild, Itching, 08/07/20) Medications No Active Prescriptions or Reported Meds Physical Examination Physical Examination GENERAL: Alert and oriented times three. BREAST: . ABDOMEN: Gravid and non-tender to touch. FETUS: Is vertex (VTX) by sterile vaginal examination (SVE), fetus is vertex (VTX) by Fred. HEART RATE: Regular rate and rhythm. LUNGS: Clear to auscultation (CTA). EXTREMITIES: No edema. No clonus. Deep tendon reflexes (DTRs) + . Vital Signs/I&O Vital Signs Date Time Temp Pulse Resp B/P (MAP) Pulse Ox O2 Delivery O2 Flow Rate FiO2 08/10/20 15:21 16 Room Air 08/10/20 14:20 96.9 68 146/89 (108) 98 08/10/20 12:47 100 Laboratory Data 24H LABS Laboratory Tests 2 08/10/20 11:10: Nucleated Red Blood Cells % (auto) 0.0, Syphilis Serology NONREACTIVE 08/10/20 11:12: Serology Scanned Report Hepatitis B Testing 08/10/20 12:13: Cord Arterial Blood pH 7.202, Cord Arterial Blood PCO2 65.3, Cord Arterial Blood PO2 36.8, Cord Arterial Blood HCO3 25.1, Cord Arterial Blood Total CO2 27.1, Cord Arterial Blood Base Excess -4.6, Cord Arterial Base Excess (Standard 20.3, Cord Arterial Bld Oxygen Saturation 80.7, Cord Venous Blood pH 7.292, Cord Venous Blood PCO2 44.6, Cord Venous Blood PO2 28.7, Cord Venous Blood HCO3 21.1, Cord Venous Blood Total CO2 22.4, Cord Venous Base Excess (Actual) -5.5, Cord Ve nous Base Excess (Standard) 19.4, Cord Venous Blood Oxygen Saturation 72.0, Urine Opiates Screen NEGATIVE, Urine Methadone Screen NEGATIVE, Urine Barbiturates Screen NEGATIVE, Urine Phencyclidine Screen NEGATIVE, Urine Amphetamines Screen NEGATIVE, Urine Benzodiazepines Screen NEGATIVE, Urine Cocaine Metabolite Screen NEGATIVE, Urine Cannabinoids Screen PENDING CONFIRMATIONH CBC/BMP Laboratory Tests 08/10/20 11:10 Pertinent Laboratoy Data Blood Type: A- Group B Streptococcus: Unknown Vaginal Examination Dilation: 5 cm Effacement: 100% Station: -1 Presentation: Cephalic presentation Assessment Variability: Moderate Accelerations: Positive Decelerations: None Tocometer Contractions: Yes Frequency: regular Duration: greater than 60 seconds Strength: palpated as strong Assessment/Plan Assessment Pt is a 35-year-old (G)4 para (P)3 at 36+0 weeks by 3rd trimester ultrasound presents to Labor and Delivery in active labor. She has had at least two prior sections.. Plan Admit and orient. Home Health Lvn and consent. Plan repeat Pt appears to be actively psychotic Will need general anesthesia for delivery May need psychiatric consult after delivery. RYANN WAY MD Aug 10, 2020 15:41
--- NOTE | 2020-08-10 17:44 | MHCR ---
CONSULTATION DATE: 08/10/2020 I was called a little earlier this afternoon by Dr. Albert. I was asked to see Ms. Nicholson, who has just had a baby, delivered via section by Dr. Albert. I called the maternity unit to arrange for the consultation, and I was informed by staff that she has left against medical advice. Edited: [facility] 08/11/2020 0850 MTDD
[2020-08-11] MEDS ORDERED: PRENATAL VITAMINS CHEWABLE TABLET PO SCH (09:00)
[2020-08-11] MEDS ORDERED: IBUPROFEN 800 MG TAB PO SCH (15:00)
== END 2020-08-10 16:40 | disposition home or self-care (01) | DRG 540 ==
LOC: M LDO 10:45 → M LDI 11:05 → M OBS 14:35
PROVIDERS: ADMIT Specialist; ATTEND Specialist
PROC: 0UB70ZZ Excision of Bilateral Fallopian Tubes, Open Approach (ICD-10-PCS; 2020-08-10)
PROC: 10D00Z1 Extraction of Products of Conception, Low, Open Approach (ICD-10-PCS; principal; 2020-08-10 12:50)
DX: O34.211 Maternal care for low transverse scar from previous cesarean delivery (principal); O60.14X0 Preterm labor third trimester with preterm delivery third trimester, not applicable or unspecified; Z3A.36 36 weeks gestation of pregnancy; O99.334 Smoking (tobacco) complicating childbirth; F17.210 Nicotine dependence, cigarettes, uncomplicated; Z30.2 Encounter for sterilization; Z37.0 Single live birth; O09.33 Supervision of pregnancy with insufficient antenatal care, third trimester; Z91.19 Patient's noncompliance with other medical treatment and regimen

== ENCOUNTER 2022-03-25 09:40 | Inpatient (IN) | payer BC, MEDICARE, OTHER ==
[~2022-03-25] VITALS: Ht 162.6 cm; Wt 49.0 kg
[~2022-03-25 09:40] MED LIST changes: -PARO12.510 PO; +PARO12.56 PO
[2022-03-25 10:39] LABS: HEMATOCRIT 45.4 % (36.0-47.0); HEMOGLOBIN 15.5 g/dl (12.0-15.5); MEAN CORPUSCULAR HEMOGLOBIN 31.7 pg (27.0-33.0); MEAN CORPUSCULAR HGB CONC 34.1 g/dl (32.0-36.5); MEAN CORPUSCULAR VOLUME 92.8 fl (80.0-96.0); PLATELET COUNT, AUTOMATED 225 10^3/uL (150-450); RED BLOOD COUNT 4.89 10^6/uL (4.00-5.40); WHITE BLOOD COUNT 10.1 10^3/uL (4.0-10.0)
[2022-03-25 11:10] LABS: RSV AMPLIFICATION NEGATIVE (NEGATIVE)
[2022-03-25 11:12] LABS: ETHYL ALCOHOL (ETHANOL) 0.003 % (0.000-0.010)
[2022-03-25 11:13] LABS: ACETAMINOPHEN LEVEL < 2.0 UG/ML (10.0-20.0)
[2022-03-25 11:14] LABS: BILIRUBIN,DIRECT 0.2 MG/DL (<0.4); HCG, SERUM QUALITATIVE NEGATIVE (NEGATIVE); SALICYLATE LEVEL < 3.0 MG/DL (<30)
[2022-03-25 11:15] LABS: ALBUMIN 3.8 G/DL (3.2-5.2); ALKALINE PHOSPHATASE 77 U/L (46-116); ALT/SGPT 15 U/L (7.0-40); AST/SGOT 11 U/L (<34); BILIRUBIN,TOTAL 0.5 MG/DL (0.3-1.2); BLOOD UREA NITROGEN 16 MG/DL (9-23); CALCIUM LEVEL 9.6 MG/DL (8.5-10.1); CARBON DIOXIDE LEVEL 29 MMOL/L (20-31); CHLORIDE LEVEL 104 MMOL/L (98-107); CREATININE FOR GFR 0.72 MG/DL (0.55-1.30); GLOMERULAR FILTRATION RATE > 60.0 (>60); GLUCOSE, FASTING 86 MG/DL (60-100); POTASSIUM SERUM 4.5 MMOL/L (3.5-5.1); SODIUM LEVEL 141 MMOL/L (136-145); TOTAL PROTEIN 6.5 G/DL (5.7-8.2)
[2022-03-25 11:16] LABS: THYROID STIMULATING HORMONE 0.867 uIU/ML (0.55-4.78)
[2022-03-25 11:48] LABS: AMPHETAMINES LEVEL URINE NEGATIVE (NEGATIVE); BARBITURATES URINE NEGATIVE (NEGATIVE); BENZODIAZEPINES URINE NEGATIVE (NEGATIVE); CANNABINOIDS URINE NEGATIVE (NEGATIVE); COCAINE METABOLITE URINE NEGATIVE (NEGATIVE); METHADONE URINE NEGATIVE (NEGATIVE); OPIATES URINE NEGATIVE (NEGATIVE); PHENCYCLIDINE URINE NEGATIVE (NEGATIVE)
[2022-03-25] MEDS ORDERED: GABA600T4 PO (15:07)
[2022-03-25] MEDS ORDERED: CAFF200T6 PO (15:07)
[2022-03-25] MEDS ORDERED: HOME MED LIST COMPLETE! XX SCH (15:10)
[2022-03-25] MEDS ORDERED: FOSFOMYCIN TROMETHAMINE 3 GM POWDER PACKET (MONUROL) PO ONE (21:30)
[2022-03-25] MEDS ORDERED: cefTRIAXone SOD 1GM VIAL IM ONE (23:45)
[2022-03-25] MEDS ORDERED: LIDOCAINE 1% SDV 5ML VIAL DILUENT ONE (23:45)
[2022-03-26] MEDS ORDERED: OLANZapine ORAL DISINTEGRATING TAB 5MG PO ONE (09:30)
[2022-03-26] MEDS ORDERED: OLANZapine INTRAMUSCULAR 10MG VIAL IM ONE (09:40)
[2022-03-27] MEDS ORDERED: GABAPENTIN 300 MG CAP PO SCH (09:00)
[2022-03-27] MEDS: NICOTINE 21MG/24HR 1 EA TRANSDERMAL TD SCH (09:00)
[2022-03-27] MEDS ORDERED: OLANZapine INTRAMUSCULAR 10MG VIAL IM ONE (09:10)
[2022-03-27] MEDS ORDERED: MAALOX 30 ML SUSP *UDC PO PRN (13:05)
[2022-03-27] MEDS ORDERED: diphenhydrAMINE 25MG CAP PO PRN (13:05)
[2022-03-27] MEDS ORDERED: MOM 30ML SUSPENSION UDC PO PRN (13:05)
[2022-03-27] MEDS ORDERED: traZODone 50 MG TAB PO PRN (13:05)
[2022-03-27] MEDS ORDERED: LORazepam 1 MG TAB PO PRN (13:05)
[2022-03-27] MEDS: GABAPENTIN 300 MG CAP PO SCH ×2 (16:00→21:00)
[2022-03-28] MEDS: NICOTINE 21MG/24HR 1 EA TRANSDERMAL TD SCH (08:53)
[2022-03-28] MEDS: GABAPENTIN 300 MG CAP PO SCH ×3 (08:53→21:00)
[2022-03-29] MEDS: NICOTINE 21MG/24HR 1 EA TRANSDERMAL TD SCH (09:00)
[2022-03-29] MEDS ORDERED: NICOTINE 21MG/24HR 1 EA TRANSDERMAL TD SCH (09:00)
[2022-03-29] MEDS: GABAPENTIN 300 MG CAP PO SCH ×3 (09:00→21:00)
[2022-03-29] MEDS ORDERED: MAALOX 30 ML SUSP *UDC PO PRN (12:35)
[2022-03-29] MEDS ORDERED: MOM 30ML SUSPENSION UDC PO PRN (12:35)
[2022-03-29] MEDS ORDERED: IBUPROFEN 400MG TAB PO PRN (12:35)
[2022-03-29] MEDS ORDERED: diphenhydrAMINE 25MG CAP PO PRN (12:35)
[2022-03-29] MEDS ORDERED: traZODone 50 MG TAB PO PRN (12:35)
[2022-03-29 15:36] VITALS: BP 105/67
[2022-03-30] MEDS: CEFDINIR 300 MG CAP (OMNICEF) PO SCH ×2 (09:00→20:23)
[2022-03-30] MEDS: GABAPENTIN 300 MG CAP PO SCH ×3 (09:00→20:23)
[2022-03-30] MEDS: NICOTINE 21MG/24HR 1 EA TRANSDERMAL TD SCH (09:00)
[2022-03-30] MEDS ORDERED: OLANZapine 10 MG TAB PO SCH (21:00)
[2022-03-31] MEDS: GABAPENTIN 300 MG CAP PO SCH (09:00)
[2022-03-31] MEDS: CEFDINIR 300 MG CAP (OMNICEF) PO SCH (09:00)
[2022-03-31] MEDS: NICOTINE 21MG/24HR 1 EA TRANSDERMAL TD SCH (09:00)
[2022-03-31] MEDS ORDERED: OLAN1TAB20 PO (11:12)
== END 2022-03-31 14:53 | disposition short-term general hospital (02) | DRG 885 ==
LOC: EDBD 09:40 → M ED 09:40 → M ED INP 03-27 13:02 → EDBEDREQDT 03-29 12:37 → M PSY 03-29 16:06
PROVIDERS: ADMIT Student in an Organized Health Care Education/Training Program; ATTEND Psychiatry & Neurology Psychiatry
DX: F29 Unspecified psychosis not due to a substance or known physiological condition (principal); N39.0 Urinary tract infection, site not specified; F41.9 Anxiety disorder, unspecified; F90.9 Attention-deficit hyperactivity disorder, unspecified type; F20.9 Schizophrenia, unspecified; Z91.14 Patient's other noncompliance with medication regimen; E86.0 Dehydration; Z79.899 Other long term (current) drug therapy; Z88.6 Allergy status to analgesic agent

== ENCOUNTER 2022-03-31 11:32 | Inpatient (IN) | payer MEDICARE, MEDICAID ==
[~2022-03-31] VITALS: Ht 162.6 cm; Wt 50.0 kg
[~2022-03-31 11:32] MED LIST changes: +CAFF200T6 PO; +GABA600T4 PO; +OLAN1TAB20 PO
[2022-03-31] MEDS ORDERED: D5W/0.9% SODIUM CHLORIDE 1,000 ML IV SCH (12:10)
[2022-03-31] MEDS ORDERED: LORazepam 2 MG/ML VIAL IM PRN (12:15)
[2022-03-31] MEDS: OLANZapine INTRAMUSCULAR 10MG VIAL IM PRN (15:49)
[2022-03-31 16:34] VITALS: BP 108/74
[2022-03-31 17:12] LABS: HEMATOCRIT 53.1 % (36.0-47.0); HEMOGLOBIN 18.2 g/dl (12.0-15.5); MEAN CORPUSCULAR HEMOGLOBIN 31.5 pg (27.0-33.0); MEAN CORPUSCULAR HGB CONC 34.3 g/dl (32.0-36.5); MEAN CORPUSCULAR VOLUME 91.9 fl (80.0-96.0); PLATELET COUNT, AUTOMATED 321 10^3/uL (150-450); RED BLOOD COUNT 5.78 10^6/uL (4.00-5.40); WHITE BLOOD COUNT 8.7 10^3/uL (4.0-10.0)
[2022-03-31 17:34] LABS: MAGNESIUM LEVEL 2.4 MG/DL (1.8-2.4)
[2022-03-31 17:35] LABS: PHOSPHORUS LEVEL 4.6 MG/DL (2.5-4.9)
[2022-03-31 17:37] LABS: ALBUMIN 4.3 G/DL (3.2-5.2); ALKALINE PHOSPHATASE 88 U/L (46-116); ALT/SGPT 10 U/L (7.0-40); AST/SGOT 15 U/L (<34); BILIRUBIN,TOTAL 0.7 MG/DL (0.3-1.2); BLOOD UREA NITROGEN 37 MG/DL (9-23); CALCIUM LEVEL 10.8 MG/DL (8.5-10.1); CARBON DIOXIDE LEVEL 23 MMOL/L (20-31); CHLORIDE LEVEL 108 MMOL/L (98-107); CREATININE FOR GFR 0.68 MG/DL (0.55-1.30); GLOMERULAR FILTRATION RATE > 60.0 (>60); GLUCOSE, FASTING 80 MG/DL (60-100); POTASSIUM SERUM 4.2 MMOL/L (3.5-5.1); SODIUM LEVEL 147 MMOL/L (136-145); TOTAL PROTEIN 7.8 G/DL (5.7-8.2)
[2022-03-31] MEDS ORDERED: LORazepam 2 MG/ML VIAL IV PRN (17:45)
[2022-03-31] MEDS: cefTRIAXone SOD 1 GM in D5W MINI-BAG PLUS 50 ML IV SCH (18:18)
[2022-03-31] MEDS ORDERED: NS 1,000 ML IV ONE (18:35)
[2022-03-31 19:32] VITALS: BP 106/76
[2022-03-31] MEDS: HEPARIN SOD (PORCINE) 5000UNITS/ML 1ML VIAL/SYRINGE SC SCH (21:00)
[2022-03-31] MEDS: D5W/0.45% SODIUM CHLORIDE 1,000 ML IV SCH (22:20)
[2022-03-31 23:55] VITALS: BP 104/73
[2022-04-01] MEDS: OLANZapine INTRAMUSCULAR 10MG VIAL IM PRN (00:24)
[2022-04-01 03:51] VITALS: BP 92/60
[2022-04-01 05:34] LABS: BASO # 0.1 10^3/uL (0.0-0.2); BASO % 0.9 % (0.0-1.0); EOS # 0.1 10^3/uL (0.0-0.5); EOS % 0.8 % (0.0-3.0); HEMATOCRIT 46.9 % (36.0-47.0); LYMPH # 3.4 10^3/uL (1.5-5.0); LYMPH % 43.1 % (24.0-44.0); MEAN CORPUSCULAR HEMOGLOBIN 31.7 pg (27.0-33.0); MEAN CORPUSCULAR HGB CONC 33.9 g/dl (32.0-36.5); MEAN CORPUSCULAR VOLUME 93.6 fl (80.0-96.0); MONO # 0.5 10^3/uL (0.0-0.8); NEUTROPHILS # 3.8 10^3/uL (1.5-8.5); NEUTROPHILS % 48.9 % (36.0-66.0); PLATELET COUNT, AUTOMATED 252 10^3/uL (150-450); RED BLOOD COUNT 5.01 10^6/uL (4.00-5.40); WHITE BLOOD COUNT 7.8 10^3/uL (4.0-10.0)
[2022-04-01 05:40] LABS: HEMOGLOBIN 15.9 g/dl (12.0-15.5)
[2022-04-01] MEDS: D5W/0.45% SODIUM CHLORIDE 1,000 ML IV SCH ×3 (07:17→23:02)
[2022-04-01] MEDS ORDERED: HOME MED LIST COMPLETE! XX SCH (07:45)
[2022-04-01 08:00] VITALS: BP 97/67
[2022-04-01] MEDS: HEPARIN SOD (PORCINE) 5000UNITS/ML 1ML VIAL/SYRINGE SC SCH ×2 (09:50→21:16)
[2022-04-01 10:34] LABS: MAGNESIUM LEVEL 2.2 MG/DL (1.8-2.4)
[2022-04-01 10:49] LABS: BLOOD UREA NITROGEN 26 MG/DL (9-23); CALCIUM LEVEL 9.2 MG/DL (8.5-10.1); CARBON DIOXIDE LEVEL 27 MMOL/L (20-31); CHLORIDE LEVEL 113 MMOL/L (98-107); CREATININE FOR GFR 0.72 MG/DL (0.55-1.30); GLOMERULAR FILTRATION RATE > 60.0 (>60); GLUCOSE, FASTING 80 MG/DL (60-100); PHOSPHORUS LEVEL 3.3 MG/DL (2.5-4.9); POTASSIUM SERUM 4.1 MMOL/L (3.5-5.1); SODIUM LEVEL 147 MMOL/L (136-145)
[2022-04-01 12:00] VITALS: BP 102/70
[2022-04-01] MEDS ORDERED: OLANZapine INTRAMUSCULAR 10MG VIAL IM PRN (12:55)
[2022-04-01] MEDS: cefTRIAXone SOD 1 GM in D5W MINI-BAG PLUS 50 ML IV SCH (15:40)
[2022-04-01 16:00] VITALS: BP 114/76
[2022-04-01 20:00] VITALS: BP 103/66
[2022-04-02 00:15] VITALS: BP 84/42
[2022-04-02 00:44] VITALS: BP 94/50
[2022-04-02 03:30] VITALS: BP 94/59
[2022-04-02 06:01] LABS: BLOOD UREA NITROGEN 22 MG/DL (9-23); CALCIUM LEVEL 8.9 MG/DL (8.5-10.1); CARBON DIOXIDE LEVEL 26 MMOL/L (20-31); CHLORIDE LEVEL 113 MMOL/L (98-107); CREATININE FOR GFR 0.67 MG/DL (0.55-1.30); GLOMERULAR FILTRATION RATE > 60.0 (>60); GLUCOSE, FASTING 89 MG/DL (60-100); POTASSIUM SERUM 3.4 MMOL/L (3.5-5.1); SODIUM LEVEL 145 MMOL/L (136-145)
[2022-04-02 08:00] VITALS: BP 92/59
[2022-04-02] MEDS: KCL 10MEQ/100ML SWI (KRUN) 10 MEQ in IV 1 EA IV SCH ×4 (08:16→14:00)
[2022-04-02] MEDS: D5W/0.45% SODIUM CHLORIDE 1,000 ML IV SCH (08:16)
[2022-04-02] MEDS: HEPARIN SOD (PORCINE) 5000UNITS/ML 1ML VIAL/SYRINGE SC SCH ×2 (09:11→20:23)
[2022-04-02 12:00] VITALS: BP 98/65
[2022-04-02] MEDS: NYSTATIN 500,000U/5ML SUSP UDC PO SCH ×3 (13:00→20:20)
[2022-04-02] MEDS: KCL 20MEQ IN D5/0.45NS 1000ML 1,000 ML IV SCH (13:31)
[2022-04-02] MEDS: cefTRIAXone SOD 1 GM in D5W MINI-BAG PLUS 50 ML IV SCH (16:00)
[2022-04-02 20:10] VITALS: BP 100/57
[2022-04-02] MEDS: HALOPERIDOL 5MG/ML 1ML VIAL IM SCH (20:22)
[2022-04-03] MEDS: KCL 20MEQ IN D5/0.45NS 1000ML 1,000 ML IV SCH (01:20)
[2022-04-03 06:26] VITALS: BP 91/58
[2022-04-03 08:00] VITALS: BP 91/55
[2022-04-03] MEDS: HEPARIN SOD (PORCINE) 5000UNITS/ML 1ML VIAL/SYRINGE SC SCH ×2 (08:43→20:55)
[2022-04-03] MEDS: HALOPERIDOL 5MG/ML 1ML VIAL IM SCH ×2 (08:43→20:55)
[2022-04-03] MEDS: NYSTATIN 500,000U/5ML SUSP UDC PO SCH ×4 (08:59→20:54)
[2022-04-03 09:06] LABS: MAGNESIUM LEVEL 1.8 MG/DL (1.8-2.4)
[2022-04-03 09:31] LABS: BLOOD UREA NITROGEN 12 MG/DL (9-23); CALCIUM LEVEL 8.7 MG/DL (8.5-10.1); CARBON DIOXIDE LEVEL 27 MMOL/L (20-31); CHLORIDE LEVEL 110 MMOL/L (98-107); CREATININE FOR GFR 0.67 MG/DL (0.55-1.30); GLOMERULAR FILTRATION RATE > 60.0 (>60); GLUCOSE, FASTING 97 MG/DL (60-100); PHOSPHORUS LEVEL 3.4 MG/DL (2.5-4.9); POTASSIUM SERUM 4.1 MMOL/L (3.5-5.1); SODIUM LEVEL 143 MMOL/L (136-145)
[2022-04-03] MEDS: D5W/0.45% SODIUM CHLORIDE 1,000 ML IV SCH ×2 (11:54→23:49)
[2022-04-03 16:00] VITALS: BP 105/67
[2022-04-03] MEDS: cefTRIAXone SOD 1 GM in D5W MINI-BAG PLUS 50 ML IV SCH (16:33)
[2022-04-03 19:56] VITALS: BP 98/65
[2022-04-04 04:49] VITALS: BP 97/60
[2022-04-04 05:15] LABS: MAGNESIUM LEVEL 1.8 MG/DL (1.8-2.4)
[2022-04-04 05:16] LABS: BLOOD UREA NITROGEN 7 MG/DL (9-23); CALCIUM LEVEL 8.7 MG/DL (8.5-10.1); CARBON DIOXIDE LEVEL 28 MMOL/L (20-31); CHLORIDE LEVEL 109 MMOL/L (98-107); CREATININE FOR GFR 0.63 MG/DL (0.55-1.30); GLOMERULAR FILTRATION RATE > 60.0 (>60); GLUCOSE, FASTING 104 MG/DL (60-100); POTASSIUM SERUM 3.9 MMOL/L (3.5-5.1); SODIUM LEVEL 143 MMOL/L (136-145)
[2022-04-04 08:00] VITALS: BP 113/73
[2022-04-04] MEDS: D5W/0.45% SODIUM CHLORIDE 1,000 ML IV SCH ×2 (09:21→20:10)
[2022-04-04] MEDS: NYSTATIN 500,000U/5ML SUSP UDC PO SCH ×4 (09:31→20:10)
[2022-04-04] MEDS: HEPARIN SOD (PORCINE) 5000UNITS/ML 1ML VIAL/SYRINGE SC SCH ×2 (09:31→20:10)
[2022-04-04] MEDS: HALOPERIDOL 5MG/ML 1ML VIAL IM SCH ×2 (09:31→20:10)
[2022-04-04] MEDS: cefTRIAXone SOD 1 GM in D5W MINI-BAG PLUS 50 ML IV SCH (15:17)
[2022-04-04 18:25] VITALS: BP 115/79
[2022-04-04 20:03] VITALS: BP 96/57
[2022-04-05 04:47] LABS: HEMATOCRIT 37.4 % (36.0-47.0); HEMOGLOBIN 12.9 g/dl (12.0-15.5); MEAN CORPUSCULAR HEMOGLOBIN 31.5 pg (27.0-33.0); MEAN CORPUSCULAR HGB CONC 34.5 g/dl (32.0-36.5); MEAN CORPUSCULAR VOLUME 91.2 fl (80.0-96.0); PLATELET COUNT, AUTOMATED 205 10^3/uL (150-450); WHITE BLOOD COUNT 4.8 10^3/uL (4.0-10.0)
[2022-04-05 04:50] VITALS: BP 96/63
[2022-04-05] MEDS: D5W/0.45% SODIUM CHLORIDE 1,000 ML IV SCH ×3 (05:13→23:35)
[2022-04-05 05:16] LABS: MAGNESIUM LEVEL 1.7 MG/DL (1.8-2.4)
[2022-04-05 05:18] LABS: ALBUMIN 2.9 G/DL (3.2-5.2); ALKALINE PHOSPHATASE 54 U/L (46-116); ALT/SGPT 9 U/L (7.0-40); AST/SGOT 19 U/L (<34); BILIRUBIN,TOTAL 0.5 MG/DL (0.3-1.2); BLOOD UREA NITROGEN 6 MG/DL (9-23); CALCIUM LEVEL 8.3 MG/DL (8.5-10.1); CARBON DIOXIDE LEVEL 29 MMOL/L (20-31); CHLORIDE LEVEL 108 MMOL/L (98-107); CREATININE FOR GFR 0.71 MG/DL (0.55-1.30); GLOMERULAR FILTRATION RATE > 60.0 (>60); GLUCOSE, FASTING 98 MG/DL (60-100); PHOSPHORUS LEVEL 3.8 MG/DL (2.5-4.9); POTASSIUM SERUM 3.8 MMOL/L (3.5-5.1); SODIUM LEVEL 141 MMOL/L (136-145); TOTAL PROTEIN 5.1 G/DL (5.7-8.2)
[2022-04-05] MEDS ORDERED: MAG SULF 1GM/100ML (MAG RUN) 1 GM in IV 1 EA IV ONE (06:00)
[2022-04-05 08:11] VITALS: BP 120/84
[2022-04-05] MEDS: NYSTATIN 500,000U/5ML SUSP UDC PO SCH ×4 (09:00→19:00)
[2022-04-05] MEDS: MAGNESIUM OXIDE 400MG TAB (MAG-OX) PO SCH ×2 (09:00→20:44)
[2022-04-05] MEDS: HALOPERIDOL 5MG/ML 1ML VIAL IM SCH ×2 (09:48→20:44)
[2022-04-05] MEDS: HEPARIN SOD (PORCINE) 5000UNITS/ML 1ML VIAL/SYRINGE SC SCH ×2 (09:48→20:44)
[2022-04-05 15:46] VITALS: BP 109/70
[2022-04-05 20:00] VITALS: BP 134/95
[2022-04-06 04:56] VITALS: BP 113/73
[2022-04-06 05:07] LABS: HEMATOCRIT 37.6 % (36.0-47.0); HEMOGLOBIN 13.3 g/dl (12.0-15.5); MEAN CORPUSCULAR HEMOGLOBIN 31.6 pg (27.0-33.0); MEAN CORPUSCULAR HGB CONC 35.4 g/dl (32.0-36.5); MEAN CORPUSCULAR VOLUME 89.3 fl (80.0-96.0); PLATELET COUNT, AUTOMATED 204 10^3/uL (150-450); RED BLOOD COUNT 4.21 10^6/uL (4.00-5.40); WHITE BLOOD COUNT 5.2 10^3/uL (4.0-10.0)
[2022-04-06 05:31] LABS: MAGNESIUM LEVEL 1.8 MG/DL (1.8-2.4)
[2022-04-06 05:48] LABS: ALBUMIN 2.9 G/DL (3.2-5.2); ALKALINE PHOSPHATASE 55 U/L (46-116); ALT/SGPT 10 U/L (7.0-40); AST/SGOT 20 U/L (<34); BILIRUBIN,TOTAL 0.5 MG/DL (0.3-1.2); BLOOD UREA NITROGEN < 5 MG/DL (9-23); CALCIUM LEVEL 8.2 MG/DL (8.5-10.1); CARBON DIOXIDE LEVEL 30 MMOL/L (20-31); CHLORIDE LEVEL 110 MMOL/L (98-107); CREATININE FOR GFR 0.74 MG/DL (0.55-1.30); GLOMERULAR FILTRATION RATE > 60.0 (>60); GLUCOSE, FASTING 95 MG/DL (60-100); PHOSPHORUS LEVEL 3.7 MG/DL (2.5-4.9); POTASSIUM SERUM 3.8 MMOL/L (3.5-5.1); SODIUM LEVEL 142 MMOL/L (136-145)
[2022-04-06 08:00] VITALS: BP 105/64
[2022-04-06] MEDS: HEPARIN SOD (PORCINE) 5000UNITS/ML 1ML VIAL/SYRINGE SC SCH ×2 (09:34→20:46)
[2022-04-06] MEDS: MAGNESIUM OXIDE 400MG TAB (MAG-OX) PO SCH ×2 (09:34→20:46)
[2022-04-06] MEDS: NYSTATIN 500,000U/5ML SUSP UDC PO SCH ×4 (09:34→20:46)
[2022-04-06] MEDS: HALOPERIDOL 5MG/ML 1ML VIAL IM SCH ×2 (10:12→20:46)
[2022-04-06] MEDS: D5W/0.45% SODIUM CHLORIDE 1,000 ML IV SCH ×2 (10:12→19:48)
[2022-04-06 16:34] VITALS: BP 114/73
[2022-04-06 20:55] VITALS: BP 115/67
[2022-04-06 21:42] VITALS: BP 108/65
[2022-04-07 05:31] VITALS: BP 94/64
[2022-04-07] MEDS: D5W/0.45% SODIUM CHLORIDE 1,000 ML IV SCH ×2 (05:31→15:25)
[2022-04-07 05:49] LABS: HEMATOCRIT 36.4 % (36.0-47.0); HEMOGLOBIN 12.7 g/dl (12.0-15.5); MEAN CORPUSCULAR HEMOGLOBIN 31.1 pg (27.0-33.0); MEAN CORPUSCULAR HGB CONC 34.9 g/dl (32.0-36.5); MEAN CORPUSCULAR VOLUME 89.2 fl (80.0-96.0); PLATELET COUNT, AUTOMATED 221 10^3/uL (150-450); RED BLOOD COUNT 4.08 10^6/uL (4.00-5.40)
[2022-04-07 06:10] LABS: MAGNESIUM LEVEL 1.8 MG/DL (1.8-2.4)
[2022-04-07 06:19] LABS: ALBUMIN 2.9 G/DL (3.2-5.2); ALKALINE PHOSPHATASE 54 U/L (46-116); ALT/SGPT 14 U/L (7.0-40); AST/SGOT 18 U/L (<34); BILIRUBIN,TOTAL 0.5 MG/DL (0.3-1.2); BLOOD UREA NITROGEN < 5 MG/DL (9-23); CALCIUM LEVEL 8.6 MG/DL (8.5-10.1); CARBON DIOXIDE LEVEL 30 MMOL/L (20-31); CHLORIDE LEVEL 106 MMOL/L (98-107); CREATININE FOR GFR 0.65 MG/DL (0.55-1.30); GLOMERULAR FILTRATION RATE > 60.0 (>60); GLUCOSE, FASTING 94 MG/DL (60-100); PHOSPHORUS LEVEL 3.8 MG/DL (2.5-4.9); POTASSIUM SERUM 3.3 MMOL/L (3.5-5.1); SODIUM LEVEL 141 MMOL/L (136-145); TOTAL PROTEIN 5.1 G/DL (5.7-8.2)
[2022-04-07] MEDS: MAGNESIUM OXIDE 400MG TAB (MAG-OX) PO SCH ×2 (09:00→21:00)
[2022-04-07] MEDS ORDERED: POTASSIUM CHLORIDE 10MEQ SR TABLET PO ONE (09:00)
[2022-04-07] MEDS: HEPARIN SOD (PORCINE) 5000UNITS/ML 1ML VIAL/SYRINGE SC SCH ×2 (09:14→21:11)
[2022-04-07] MEDS: HALOPERIDOL 5MG/ML 1ML VIAL IM SCH ×2 (09:15→21:10)
[2022-04-07] MEDS: NYSTATIN 500,000U/5ML SUSP UDC PO SCH ×4 (09:15→21:00)
[2022-04-07 14:53] VITALS: BP 101/76
[2022-04-07] MEDS: AMINO AC/ELECTROLYTE/DEX/CALC 1,000 ML IV SCH (15:13)
[2022-04-07] MEDS ORDERED: FAT EMULSION IV 250 ML IV ONE (18:00)
[2022-04-07 22:00] VITALS: BP 105/68
[2022-04-08] MEDS: AMINO AC/ELECTROLYTE/DEX/CALC 1,000 ML IV SCH (05:13)
[2022-04-08 05:52] VITALS: BP 104/68
[2022-04-08 06:20] LABS: HEMATOCRIT 38.9 % (36.0-47.0); HEMOGLOBIN 13.2 g/dl (12.0-15.5); MEAN CORPUSCULAR HEMOGLOBIN 31.7 pg (27.0-33.0); MEAN CORPUSCULAR HGB CONC 33.9 g/dl (32.0-36.5); MEAN CORPUSCULAR VOLUME 93.5 fl (80.0-96.0); PLATELET COUNT, AUTOMATED 230 10^3/uL (150-450); RED BLOOD COUNT 4.16 10^6/uL (4.00-5.40)
[2022-04-08 07:02] LABS: ALKALINE PHOSPHATASE 59 U/L (46-116); ALT/SGPT 17 U/L (7.0-40); AST/SGOT 20 U/L (<34); BILIRUBIN,TOTAL 0.2 MG/DL (0.3-1.2); BLOOD UREA NITROGEN 21 MG/DL (9-23); CALCIUM LEVEL 8.6 MG/DL (8.5-10.1); CARBON DIOXIDE LEVEL 30 MMOL/L (20-31); CHLORIDE LEVEL 107 MMOL/L (98-107); CREATININE FOR GFR 0.56 MG/DL (0.55-1.30); GLOMERULAR FILTRATION RATE > 60.0 (>60); GLUCOSE, FASTING 79 MG/DL (60-100); MAGNESIUM LEVEL 1.9 MG/DL (1.8-2.4); PHOSPHORUS LEVEL 3.9 MG/DL (2.5-4.9); POTASSIUM SERUM 4.7 MMOL/L (3.5-5.1); SODIUM LEVEL 142 MMOL/L (136-145)
[2022-04-08] MEDS: MAGNESIUM OXIDE 400MG TAB (MAG-OX) PO SCH ×2 (09:00→22:57)
[2022-04-08] MEDS: NYSTATIN 500,000U/5ML SUSP UDC PO SCH (09:55)
[2022-04-08] MEDS: HEPARIN SOD (PORCINE) 5000UNITS/ML 1ML VIAL/SYRINGE SC SCH ×2 (09:55→23:00)
[2022-04-08] MEDS: HALOPERIDOL 5MG/ML 1ML VIAL IM SCH ×2 (09:55→22:59)
[2022-04-08 14:15] VITALS: BP 85/43
[2022-04-08 21:41] VITALS: BP 96/60
[2022-04-09 06:00] VITALS: BP 99/66
[2022-04-09 08:31] LABS: HEMATOCRIT 39.5 % (36.0-47.0); HEMOGLOBIN 13.2 g/dl (12.0-15.5); MEAN CORPUSCULAR HEMOGLOBIN 31.5 pg (27.0-33.0); MEAN CORPUSCULAR HGB CONC 33.4 g/dl (32.0-36.5); MEAN CORPUSCULAR VOLUME 94.3 fl (80.0-96.0); PLATELET COUNT, AUTOMATED 234 10^3/uL (150-450); RED BLOOD COUNT 4.19 10^6/uL (4.00-5.40); WHITE BLOOD COUNT 8.3 10^3/uL (4.0-10.0)
[2022-04-09] MEDS: MAGNESIUM OXIDE 400MG TAB (MAG-OX) PO SCH ×2 (09:00→20:13)
[2022-04-09 09:06] LABS: ALBUMIN 3.2 G/DL (3.2-5.2); ALKALINE PHOSPHATASE 62 U/L (46-116); ALT/SGPT 19 U/L (7.0-40); AST/SGOT 23 U/L (<34); BILIRUBIN,TOTAL 0.2 MG/DL (0.3-1.2); BLOOD UREA NITROGEN 26 MG/DL (9-23); CALCIUM LEVEL 9.2 MG/DL (8.5-10.1); CARBON DIOXIDE LEVEL 27 MMOL/L (20-31); CHLORIDE LEVEL 105 MMOL/L (98-107); GLOMERULAR FILTRATION RATE > 60.0 (>60); GLUCOSE, FASTING 93 MG/DL (60-100); MAGNESIUM LEVEL 1.9 MG/DL (1.8-2.4); PHOSPHORUS LEVEL 3.7 MG/DL (2.5-4.9); POTASSIUM SERUM 5.1 MMOL/L (3.5-5.1); SODIUM LEVEL 138 MMOL/L (136-145); TOTAL PROTEIN 5.4 G/DL (5.7-8.2)
[2022-04-09] MEDS: HEPARIN SOD (PORCINE) 5000UNITS/ML 1ML VIAL/SYRINGE SC SCH ×2 (09:33→20:13)
[2022-04-09] MEDS: HALOPERIDOL 5MG/ML 1ML VIAL IM SCH ×2 (09:34→20:12)
[2022-04-09 14:00] VITALS: BP 90/55
[2022-04-09 22:00] VITALS: BP 91/57
[2022-04-10 06:00] VITALS: BP 92/57
[2022-04-10 06:45] LABS: HEMATOCRIT 38.4 % (36.0-47.0); HEMOGLOBIN 12.7 g/dl (12.0-15.5); MEAN CORPUSCULAR HEMOGLOBIN 31.5 pg (27.0-33.0); MEAN CORPUSCULAR HGB CONC 33.1 g/dl (32.0-36.5); MEAN CORPUSCULAR VOLUME 95.3 fl (80.0-96.0); PLATELET COUNT, AUTOMATED 217 10^3/uL (150-450); RED BLOOD COUNT 4.03 10^6/uL (4.00-5.40); WHITE BLOOD COUNT 8.5 10^3/uL (4.0-10.0)
[2022-04-10 07:09] LABS: ALBUMIN 3.3 G/DL (3.2-5.2); ALKALINE PHOSPHATASE 56 U/L (46-116); ALT/SGPT 36 U/L (7.0-40); AST/SGOT 35 U/L (<34); BILIRUBIN,TOTAL 0.2 MG/DL (0.3-1.2); BLOOD UREA NITROGEN 30 MG/DL (9-23); CALCIUM LEVEL 9.2 MG/DL (8.5-10.1); CARBON DIOXIDE LEVEL 29 MMOL/L (20-31); CHLORIDE LEVEL 102 MMOL/L (98-107); CREATININE FOR GFR 0.57 MG/DL (0.55-1.30); GLOMERULAR FILTRATION RATE > 60.0 (>60); GLUCOSE, FASTING 78 MG/DL (60-100); MAGNESIUM LEVEL 1.8 MG/DL (1.8-2.4); PHOSPHORUS LEVEL 4.1 MG/DL (2.5-4.9); POTASSIUM SERUM 4.9 MMOL/L (3.5-5.1); SODIUM LEVEL 137 MMOL/L (136-145); TOTAL PROTEIN 5.5 G/DL (5.7-8.2)
[2022-04-10] MEDS: HALOPERIDOL 5MG/ML 1ML VIAL IM SCH ×2 (08:55→20:37)
[2022-04-10] MEDS: HEPARIN SOD (PORCINE) 5000UNITS/ML 1ML VIAL/SYRINGE SC SCH ×2 (08:55→20:37)
[2022-04-10] MEDS: MAGNESIUM OXIDE 400MG TAB (MAG-OX) PO SCH ×2 (08:55→20:38)
[2022-04-10 14:00] VITALS: BP 95/59
[2022-04-10 20:36] VITALS: BP 93/58
[2022-04-11 05:28] VITALS: BP 100/59
[2022-04-11 06:10] LABS: HEMATOCRIT 38.2 % (36.0-47.0); HEMOGLOBIN 12.5 g/dl (12.0-15.5); MEAN CORPUSCULAR HEMOGLOBIN 31.5 pg (27.0-33.0); MEAN CORPUSCULAR HGB CONC 32.7 g/dl (32.0-36.5); MEAN CORPUSCULAR VOLUME 96.2 fl (80.0-96.0); PLATELET COUNT, AUTOMATED 221 10^3/uL (150-450); RED BLOOD COUNT 3.97 10^6/uL (4.00-5.40); WHITE BLOOD COUNT 9.1 10^3/uL (4.0-10.0)
[2022-04-11 06:36] LABS: ALBUMIN 3.4 G/DL (3.2-5.2); ALKALINE PHOSPHATASE 63 U/L (46-116); ALT/SGPT 168 U/L (7.0-40); AST/SGOT 147 U/L (<34); BILIRUBIN,TOTAL 0.2 MG/DL (0.3-1.2); BLOOD UREA NITROGEN 31 MG/DL (9-23); CALCIUM LEVEL 9.4 MG/DL (8.5-10.1); CARBON DIOXIDE LEVEL 29 MMOL/L (20-31); CHLORIDE LEVEL 101 MMOL/L (98-107); CREATININE FOR GFR 0.53 MG/DL (0.55-1.30); GLOMERULAR FILTRATION RATE > 60.0 (>60); GLUCOSE, FASTING 76 MG/DL (60-100); MAGNESIUM LEVEL 1.9 MG/DL (1.8-2.4); PHOSPHORUS LEVEL 4.9 MG/DL (2.5-4.9); POTASSIUM SERUM 4.8 MMOL/L (3.5-5.1); SODIUM LEVEL 137 MMOL/L (136-145)
[2022-04-11] MEDS: MAGNESIUM OXIDE 400MG TAB (MAG-OX) PO SCH ×2 (09:00→21:00)
[2022-04-11] MEDS: HALOPERIDOL 5MG/ML 1ML VIAL IM SCH ×2 (09:32→21:06)
[2022-04-11] MEDS: HEPARIN SOD (PORCINE) 5000UNITS/ML 1ML VIAL/SYRINGE SC SCH ×2 (09:33→21:06)
[2022-04-11] MEDS ORDERED: HALO1TAB PO (10:16)
[2022-04-11] MEDS ORDERED: MAGN400T2 PO (10:16)
[2022-04-12 05:42] VITALS: BP 98/60
[2022-04-12] MEDS: HEPARIN SOD (PORCINE) 5000UNITS/ML 1ML VIAL/SYRINGE SC SCH ×2 (08:58→20:32)
[2022-04-12] MEDS: MAGNESIUM OXIDE 400MG TAB (MAG-OX) PO SCH ×2 (08:58→20:32)
[2022-04-12] MEDS: HALOPERIDOL 5MG/ML 1ML VIAL IM SCH ×2 (08:58→20:32)
[2022-04-13 05:50] VITALS: BP 99/61
[2022-04-13] MEDS: HEPARIN SOD (PORCINE) 5000UNITS/ML 1ML VIAL/SYRINGE SC SCH ×2 (08:51→20:52)
[2022-04-13] MEDS: HALOPERIDOL 5MG/ML 1ML VIAL IM SCH ×2 (08:52→20:52)
[2022-04-13] MEDS: MAGNESIUM OXIDE 400MG TAB (MAG-OX) PO SCH ×2 (08:52→20:52)
[2022-04-13] MEDS ORDERED: HALOPERIDOL DECANOATE 100 MG/ML 1ML VIAL IM ONE (14:00)
[2022-04-14 06:00] VITALS: BP 99/62
[2022-04-14] MEDS: MAGNESIUM OXIDE 400MG TAB (MAG-OX) PO SCH (09:00)
[2022-04-14] MEDS: HEPARIN SOD (PORCINE) 5000UNITS/ML 1ML VIAL/SYRINGE SC SCH (09:41)
[2022-04-14] MEDS: HALOPERIDOL 5MG/ML 1ML VIAL IM SCH (09:42)
== END 2022-04-14 16:45 | DRG 640 ==
LOC: M PCU 14:56 → M MS5PR 04-06 21:24
PROVIDERS: ADMIT Internal Medicine; ATTEND General Practice
DX: R62.7 Adult failure to thrive (principal); E43 Unspecified severe protein-calorie malnutrition; Z68.1 Body mass index [BMI] 19.9 or less, adult; N39.0 Urinary tract infection, site not specified; E87.0 Hyperosmolality and hypernatremia; B37.0 Candidal stomatitis; D75.1 Secondary polycythemia; E86.0 Dehydration; F20.9 Schizophrenia, unspecified; F31.9 Bipolar disorder, unspecified; F90.9 Attention-deficit hyperactivity disorder, unspecified type; F12.159 Cannabis abuse with psychotic disorder, unspecified; F15.10 Other stimulant abuse, uncomplicated; F11.10 Opioid abuse, uncomplicated; B96.20 Unspecified Escherichia coli [E. coli] as the cause of diseases classified elsewhere; Z79.899 Other long term (current) drug therapy; Z88.6 Allergy status to analgesic agent; E83.42 Hypomagnesemia; F29 Unspecified psychosis not due to a substance or known physiological condition

== ENCOUNTER 2022-04-14 12:45 | Inpatient (IN) | payer MEDICAID, MEDICARE, OTHER ==
[~2022-04-14 12:45] MED LIST changes: +HALO1TAB PO; +MAGN400T2 PO
[2022-04-14] MEDS ORDERED: traZODone 50 MG TAB PO PRN (12:50)
[2022-04-14] MEDS ORDERED: MAALOX 30 ML SUSP *UDC PO PRN (12:50)
[2022-04-14] MEDS ORDERED: MOM 30ML SUSPENSION UDC PO PRN (12:50)
[2022-04-14] MEDS ORDERED: ACETAMINOPHEN TAB 650MG DOSE (2X325MG) PO PRN (12:50)
[2022-04-14 17:25] VITALS: BP 119/62
[2022-04-14 20:15] VITALS: BP 100/56
[2022-04-15 06:19] VITALS: BP 99/58
[2022-04-15] MEDS ORDERED: IBUPROFEN 400MG TAB PO PRN (08:45)
[2022-04-15] MEDS: NICOTINE 14 MG/24 HR TRANSDERMAL TD SCH (10:54)
[2022-04-15 16:48] VITALS: BP 110/63
[2022-04-16 06:40] VITALS: BP 114/61
[2022-04-16] MEDS: NICOTINE 14 MG/24 HR TRANSDERMAL TD SCH (09:36)
[2022-04-16 16:20] VITALS: BP 105/60
[2022-04-17 06:10] VITALS: BP 111/63
[2022-04-17] MEDS: NICOTINE 14 MG/24 HR TRANSDERMAL TD SCH (09:00)
[2022-04-17] MEDS ORDERED: HALO5TAB33 PO (09:18)
[2022-04-17] MEDS ORDERED: NICO14PA TD (09:18)
[2022-04-17] MEDS ORDERED: TRAZ-252 PO (09:18)
[2022-04-17] MEDS ORDERED: HALD50IN4 IM (09:18)
== END 2022-04-17 12:11 | disposition home or self-care (01) | DRG 885 ==
LOC: M PSY 17:03
PROVIDERS: ADMIT Student in an Organized Health Care Education/Training Program; ATTEND Student in an Organized Health Care Education/Training Program
DX: F29 Unspecified psychosis not due to a substance or known physiological condition (principal); F15.10 Other stimulant abuse, uncomplicated; R62.7 Adult failure to thrive; F17.210 Nicotine dependence, cigarettes, uncomplicated; I95.89 Other hypotension; F79 Unspecified intellectual disabilities; F11.10 Opioid abuse, uncomplicated; F10.10 Alcohol abuse, uncomplicated

== ENCOUNTER → 2022-06-23 | Outpatient (CLI) | payer MEDICARE ==
[~2022-06-23] MED LIST changes: +HALD50IN4 IM; +HALO5TAB33 PO; +NICO14PA TD; +TRAZ-252 PO
[2022-06-23 08:53] LABS: HEMATOCRIT 45.2 % (36.0-47.0); HEMOGLOBIN 14.9 g/dl (12.0-15.5); MEAN CORPUSCULAR HEMOGLOBIN 31.9 pg (27.0-33.0); MEAN CORPUSCULAR VOLUME 96.8 fl (80.0-96.0); PLATELET COUNT, AUTOMATED 226 10^3/uL (150-450); RED BLOOD COUNT 4.67 10^6/uL (4.00-5.40); WHITE BLOOD COUNT 6.5 10^3/uL (4.0-10.0)
[2022-06-23 09:08] LABS: ALBUMIN 3.7 G/DL (3.2-5.2); ALKALINE PHOSPHATASE 80 U/L (46-116); ALT/SGPT 17 U/L (7.0-40); AST/SGOT 22 U/L (<34); BILIRUBIN,TOTAL 0.3 MG/DL (0.3-1.2); BLOOD UREA NITROGEN 6 MG/DL (9-23); CALCIUM LEVEL 9.3 MG/DL (8.5-10.1); CARBON DIOXIDE LEVEL 32 MMOL/L (20-31); CHLORIDE LEVEL 105 MMOL/L (98-107); CREATININE FOR GFR 0.87 MG/DL (0.55-1.30); GLOMERULAR FILTRATION RATE > 60.0 (>60); GLUCOSE, FASTING 90 MG/DL (60-100); POTASSIUM SERUM 4.3 MMOL/L (3.5-5.1); SODIUM LEVEL 140 MMOL/L (136-145); TOTAL PROTEIN 6.4 G/DL (5.7-8.2)
[2022-06-23 09:24] LABS: HEPATITIS B SURFACE ANTIGEN NEGATIVE (NEGATIVE)
[2022-06-23 09:37] LABS: HIV 1&2 SCREEN ATELLICA NEGATIVE (NEGATIVE)
[2022-06-23 09:45] LABS: HCG, SERUM QUALITATIVE NEGATIVE (NEGATIVE)
[2022-06-23 09:46] LABS: HEPATITIS C VIRUS ABY INDEX < 0.0 INDEX (<0.8)
[2022-06-23 10:29] LABS: GC DNA AMPLIFICATION NEGATIVE (NEGATIVE)
== END ==
LOC: M LAB 07:59
PROVIDERS: ATTEND Family Medicine
DX: F11.20 Opioid dependence, uncomplicated (principal)

== ENCOUNTER → 2022-09-29 | Outpatient (REF) | payer MEDICARE ==
[2022-09-29 17:39] LABS: BASO # 0.1 10^3/uL (0.0-0.2); BASO % 0.5 % (0.0-1.0); EOS # 0.2 10^3/uL (0.0-0.5); EOS % 2.1 % (0.0-3.0); HEMATOCRIT 43.3 % (36.0-47.0); HEMOGLOBIN 14.3 g/dl (12.0-15.5); LYMPH # 4.4 10^3/uL (1.5-5.0); LYMPH % 46.7 % (24.0-44.0); MEAN CORPUSCULAR HEMOGLOBIN 30.8 pg (27.0-33.0); MEAN CORPUSCULAR VOLUME 93.3 fl (80.0-96.0); MONO # 0.6 10^3/uL (0.0-0.8); MONO % 6.2 % (2.0-8.0); NEUTROPHILS # 4.1 10^3/uL (1.5-8.5); NEUTROPHILS % 44.1 % (36.0-66.0); PLATELET COUNT, AUTOMATED 218 10^3/uL (150-450); RED BLOOD COUNT 4.64 10^6/uL (4.00-5.40); WHITE BLOOD COUNT 9.3 10^3/uL (4.0-10.0)
[2022-09-29 17:44] LABS: ALBUMIN 3.8 G/DL (3.2-5.2); ALKALINE PHOSPHATASE 78 U/L (46-116); ALT/SGPT 18 U/L (7.0-40); AST/SGOT 18 U/L (<34); BILIRUBIN,TOTAL 0.3 MG/DL (0.3-1.2); BLOOD UREA NITROGEN 8 MG/DL (9-23); CALCIUM LEVEL 8.9 MG/DL (8.5-10.1); CARBON DIOXIDE LEVEL 30 MMOL/L (20-31); CHLORIDE LEVEL 105 MMOL/L (98-107); CHOLESTEROL LEVEL 237 MG/DL (<200); CHOLESTEROL RISK RATIO 3.98 (<5); CREATININE FOR GFR 0.79 MG/DL (0.55-1.30); GLOMERULAR FILTRATION RATE > 60.0 (>60); GLUCOSE, FASTING 62 MG/DL (60-100); HDL CHOLESTEROL 59.5 MG/DL (>40); LDL CHOLESTEROL 133.3 MG/DL (<100); NON-HDL-C 177.5 MG/DL; POTASSIUM SERUM 4.2 MMOL/L (3.5-5.1); PROLACTIN 17.65 NG/ML; SODIUM LEVEL 140 MMOL/L (136-145); THYROID STIMULATING HORMONE 1.355 uIU/ML (0.55-4.78); TOTAL 25(OH) VITAMIN D 34.2 NG/ML (20.0-100.0); TOTAL PROTEIN 6.4 G/DL (5.7-8.2); TRIGLYCERIDES LEVEL 221 MG/DL (<150)
[2022-09-29 18:00] LABS: HEMOGLOBIN A1c 4.7 % (4.0-6.0)
[2022-09-29 19:31] LABS: GC DNA AMPLIFICATION NEGATIVE (NEGATIVE)
== END ==
LOC: M LAB REF 16:32
PROVIDERS: ATTEND Nurse Practitioner Family
DX: N92.6 Irregular menstruation, unspecified (principal); N64.52 Nipple discharge; E55.9 Vitamin D deficiency, unspecified; E66.3 Overweight; Z11.3 Encounter for screening for infections with a predominantly sexual mode of transmission; Z79.899 Other long term (current) drug therapy; Z72.89 Other problems related to lifestyle

== ENCOUNTER → 2023-03-19 | Outpatient (CLI) | payer OTHER ==
[~2023-03-19] MED LIST changes: -GABA-283 PO; +GABA-284 PO
== END ==
LOC: M PLAIMG 13:46
PROVIDERS: ATTEND Orthopaedic Surgery Hand Surgery
DX: M85.831 Other specified disorders of bone density and structure, right forearm (principal)

== ENCOUNTER 2023-04-09 09:00 | Day surgery (SDC) | payer OTHER ==
[~2023-04-09] VITALS: Ht 162.6 cm; Wt 74.4 kg
[~2023-04-09 09:00] MED LIST changes: +ceFAZolin SOD 2 GM in IV 1 EA IV ONE
[2023-04-09] MEDS ORDERED: LR 1,000 ML IV SCH (10:00)
[2023-04-09] MEDS ORDERED: GABA800T4 (10:51)
[2023-04-09] MEDS ORDERED: TRAM50TA2 (10:51)
[2023-04-09] MEDS ORDERED: BACITRACIN OINTMENT 30GM TUBE As Ordered ONE (10:53)
[2023-04-09] MEDS ORDERED: KETAMINE HCL 200MG/20ML VIAL As Ordered ONE (11:29)
[2023-04-09] MEDS ORDERED: MIDAZOLAM INJ 2MG/2ML VIAL As Ordered ONE (11:29)
[2023-04-09] MEDS ORDERED: propofoL 200 MG/20 ML VIAL As Ordered ONE (11:29)
[2023-04-09] MEDS ORDERED: ONDANSETRON 4MG 2ML VIAL As Ordered ONE (11:29)
[2023-04-09] MEDS ORDERED: LIDOCAINE 2% 100MG/5ML SDV (FOR ANES.) As Ordered ONE (11:29)
[2023-04-09] MEDS ORDERED: fentaNYL 100 MCG/2 ML INJECTION As Ordered ONE (11:29)
[2023-04-09] MEDS ORDERED: dexmedeTOMIDine (4MCG/ML)200MCG/50ML BTL (PRECEDEX) As Ordered ONE (11:38)
[2023-04-09] MEDS ORDERED: KETOROLAC 60MG 2ML VIAL As Ordered ONE (11:49)
[2023-04-09] MEDS ORDERED: OXYC-517 PO (12:17)
[2023-04-09] MEDS ORDERED: ONDANSETRON 4MG 2ML VIAL IV PRN (12:20)
[2023-04-09] MEDS ORDERED: diphenhydrAMINE 50MG/ML VIAL IV PRN (12:20)
[2023-04-09] MEDS ORDERED: MORPHINE 2 MG/ML 1ML VIAL IV PRN (12:20)
[2023-04-09] MEDS ORDERED: fentaNYL 100 MCG/2 ML INJECTION IV PRN (12:20)
[2023-04-09] MEDS ORDERED: METOCLOPRAMIDE INJ 10MG/2ML VIAL IV PRN (12:20)
[2023-04-09] MEDS ORDERED: MEPERIDINE 25 MG/ML 1ML VIAL IV PRN (12:20)
[2023-04-09] MEDS: oxyCODONE 5MG TAB PO PRN ×2 (12:29→13:29)
[2023-04-09 13:12] VITALS: TEMP 99
[2023-04-09 14:01] VITALS: BP 110/69; O2SAT 99
== END 2023-04-09 14:04 | disposition home or self-care (01) ==
LOC: M SDC 09:00
PROVIDERS: ATTEND Orthopaedic Surgery Hand Surgery
DX: M25.741 Osteophyte, right hand (principal); F41.9 Anxiety disorder, unspecified; F32.A Depression, unspecified; Z79.899 Other long term (current) drug therapy; Z79.891 Long term (current) use of opiate analgesic; Z88.8 Allergy status to other drugs, medicaments and biological substances; F17.218 Nicotine dependence, cigarettes, with other nicotine-induced disorders
CPT/HCPCS: 26230; 76000; J0665; J0690; J1100; J1885; J2250; J2405; J3010

== ENCOUNTER → 2023-12-19 | Outpatient (CLI) | payer OTHER ==
[~2023-12-19] MED LIST changes: +GABA-1490 PO; +GABA-1635; -GABA600T4 PO; +OXYC-517 PO; +TRAM50TA2; -ceFAZolin SOD 2 GM in IV 1 EA IV ONE
[2023-12-19 10:11] LABS: HEMOGLOBIN 14.5 g/dl (12.0-15.5); MEAN CORPUSCULAR HEMOGLOBIN 31.3 pg (27.0-33.0); PLATELET COUNT, AUTOMATED 263 10^3/uL (150-450); RED BLOOD COUNT 4.63 10^6/uL (4.00-5.40); WHITE BLOOD COUNT 7.9 10^3/uL (4.0-10.0)
[2023-12-19 10:58] LABS: HCG, SERUM QUALITATIVE NEGATIVE (NEGATIVE)
[2023-12-19 10:59] LABS: HEPATITIS B SURFACE ANTIGEN NEGATIVE (NEGATIVE)
[2023-12-19 11:11] LABS: HIV 1&2 SCREEN NEGATIVE (NEGATIVE)
[2023-12-19 11:19] LABS: HEPATITIS B CORE ANTIBODY IGM NEGATIVE (NEGATIVE)
[2023-12-19 11:20] LABS: HEPATITIS C VIRUS ABY INDEX < 0.02 INDEX (<0.8)
[2023-12-19 11:22] LABS: ALBUMIN 3.6 G/DL (3.2-5.2); ALKALINE PHOSPHATASE 93 U/L (46-116); ALT/SGPT 9 U/L (7.0-40); AST/SGOT 10 U/L (<34); BILIRUBIN,TOTAL 0.3 MG/DL (0.3-1.2); BLOOD UREA NITROGEN < 5 MG/DL (9-23); CALCIUM LEVEL 9.5 MG/DL (8.5-10.1); CARBON DIOXIDE LEVEL 31 MMOL/L (20-31); CHLORIDE LEVEL 107 MMOL/L (98-107); CREATININE FOR GFR 1.01 MG/DL (0.55-1.30); GLOMERULAR FILTRATION RATE > 60.0 (>60); GLUCOSE, FASTING 56 MG/DL (60-100); POTASSIUM SERUM 4.1 MMOL/L (3.5-5.1); SODIUM LEVEL 141 MMOL/L (136-145); TOTAL PROTEIN 6.5 G/DL (5.7-8.2)
[2023-12-19 13:14] LABS: GC DNA AMPLIFICATION NEGATIVE (NEGATIVE)
== END ==
LOC: M LAB 09:11
PROVIDERS: ATTEND Family Medicine
DX: F11.20 Opioid dependence, uncomplicated (principal)

== ENCOUNTER → 2024-01-25 | Outpatient (CLI) | payer OTHER ==
[2024-01-25 08:22] LABS: HEMATOCRIT 41.8 % (36.0-47.0); HEMOGLOBIN 13.9 g/dl (12.0-15.5); MEAN CORPUSCULAR HEMOGLOBIN 31.5 pg (27.0-33.0); MEAN CORPUSCULAR HGB CONC 33.3 g/dl (32.0-36.5); MEAN CORPUSCULAR VOLUME 94.8 fl (80.0-96.0); PLATELET COUNT, AUTOMATED 213 10^3/uL (150-450); RED BLOOD COUNT 4.41 10^6/uL (4.00-5.40); WHITE BLOOD COUNT 6.5 10^3/uL (4.0-10.0)
[2024-01-25 08:39] LABS: ALBUMIN 3.5 G/DL (3.2-5.2); ALKALINE PHOSPHATASE 94 U/L (35-104); ALT/SGPT < 9 U/L (7.0-40); AST/SGOT < 8 U/L (<34); BILIRUBIN,TOTAL 0.5 MG/DL (0.3-1.2); BLOOD UREA NITROGEN 10 MG/DL (9-23); CALCIUM LEVEL 9.4 MG/DL (8.5-10.1); CARBON DIOXIDE LEVEL 30 MMOL/L (20-31); CHLORIDE LEVEL 106 MMOL/L (98-107); CREATININE FOR GFR 0.82 MG/DL (0.55-1.30); GLOMERULAR FILTRATION RATE > 60.0 (>60); GLUCOSE, FASTING 87 MG/DL (60-100); POTASSIUM SERUM 4.4 MMOL/L (3.5-5.1); SODIUM LEVEL 139 MMOL/L (136-145); TOTAL PROTEIN 6.8 G/DL (5.7-8.2)
[2024-01-25 08:55] LABS: HCG, SERUM QUALITATIVE NEGATIVE (NEGATIVE)
[2024-01-25 08:58] LABS: HEPATITIS B SURFACE ANTIGEN NEGATIVE (NEGATIVE)
[2024-01-25 09:11] LABS: HIV 1&2 SCREEN NEGATIVE (NEGATIVE)
[2024-01-25 09:20] LABS: HEPATITIS C VIRUS ABY INDEX < 0.02 INDEX (<0.8)
[2024-01-25 12:21] LABS: GC DNA AMPLIFICATION NEGATIVE (NEGATIVE)
== END ==
LOC: M LAB 07:36
PROVIDERS: ATTEND Family Medicine
DX: F11.250 Opioid dependence with opioid-induced psychotic disorder with delusions (principal)

== ENCOUNTER 2024-09-22 10:13 | Observation (INO) | payer OTHER ==
[~2024-09-22] VITALS: Ht 162.6 cm; Wt 67.3 kg
[~2024-09-22 10:13] MED LIST changes: -GABA-1635; +GABA-1635 PO
[2024-09-22 10:51] LABS: PLATELET COUNT, AUTOMATED 206 10^3/uL (150-450)
[2024-09-22] MEDS ORDERED: DOXA1TAB40 PO (11:46)
[2024-09-22] MEDS ORDERED: QUET100T2 PO (11:46)
[2024-09-22] MEDS ORDERED: LURA20TA PO (11:46)
[2024-09-22 12:18] LABS: ETHYL ALCOHOL (ETHANOL) < 0.003 % (0.000-0.010)
[2024-09-22 12:19] LABS: SALICYLATE LEVEL < 3.0 MG/DL (<30)
[2024-09-22 12:22] LABS: ALT/SGPT 12 U/L (7.0-40); AST/SGOT 21 U/L (<34); CALCIUM LEVEL 10.0 MG/DL (8.5-10.1); CARBON DIOXIDE LEVEL 24 MMOL/L (20-31); CHLORIDE LEVEL 102 MMOL/L (98-107); CREATININE FOR GFR 1.08 MG/DL (0.55-1.30); GLOMERULAR FILTRATION RATE 67.4 (>60); POTASSIUM SERUM 4.2 MMOL/L (3.5-5.1); SODIUM LEVEL 139 MMOL/L (136-145)
[2024-09-22] MEDS ORDERED: [UNRECOGNIZED DRUG - REMARK] (12:22)
[2024-09-22] MEDS ORDERED: HOME MED LIST COMPLETE! XX SCH (12:25)
[2024-09-22 13:09] LABS: HCG, SERUM QUALITATIVE NEGATIVE (NEGATIVE)
[2024-09-22] MEDS: NS (Normal Saline) 0.9% 1,000 ML IV ONE (13:27)
[2024-09-22 15:38] LABS: BARBITURATES URINE NEGATIVE (NEGATIVE); BENZODIAZEPINES URINE NEGATIVE (NEGATIVE); COCAINE METABOLITE URINE NEGATIVE (NEGATIVE); OPIATES URINE NEGATIVE (NEGATIVE)
[2024-09-22 15:39] LABS: AMPHETAMINES LEVEL URINE POSITIVE (NEGATIVE); CANNABINOIDS URINE POSITIVE (NEGATIVE); METHADONE URINE POSITIVE (NEGATIVE); PHENCYCLIDINE URINE NEGATIVE (NEGATIVE)
[2024-09-22 18:01] LABS: C REACTIVE PROTEIN QUANTITATIV 2.26 MG/DL (<1.0)
[2024-09-22 18:08] LABS: ERYTHROCYTE SEDIMENTATION RATE 27 mm/hr (0-20)
[2024-09-22] MEDS: LR 1,000 ML IV ONE ×2 (18:38→19:54)
[2024-09-22 19:08] LABS: MYOGLOBIN SCREEN, URINE POSITIVE (NEGATIVE)
[2024-09-22 19:15] LABS: KETONE, URINE AUTO RFX 1+ mg/dL (NEGATIVE); MUCUS, URINE RFX LARGE (NEGATIVE); NITRITE, URINE AUTO RFX NEGATIVE (NEGATIVE); RBC, URINE AUTO RFX 4 /HPF (0-3); SQUAM EPITHELIAL CELL UR AURFX 0 /HPF (0-6)
[2024-09-22 19:19] LABS: LEUKOCYTE ESTERASE UR AUTO RFX 1+ (NEGATIVE); WBC, URINE AUTO RFX 15 /HPF (0-3)
[2024-09-22] MEDS ORDERED: DEXTROSE 50% 50 ML SYRINGE IV PRN (19:20)
[2024-09-22] MEDS: HALOPERIDOL LACTATE 5 MG/ML VIAL IV ONE (22:02)
[2024-09-22] MEDS: LR 1,000 ML IV SCH (23:23)
[2024-09-23 06:24] LABS: BASO # 0.0 10^3/uL (0.0-0.2); BASO % 0.3 % (0.0-1.0); EOS # 0.2 10^3/uL (0.0-0.5); EOS % 1.2 % (0.0-3.0); LYMPH # 2.0 10^3/uL (1.5-5.0); LYMPH % 16.5 % (24.0-44.0); MONO # 1.2 10^3/uL (0.0-0.8); MONO % 9.6 % (2.0-8.0); NEUTROPHILS # 8.8 10^3/uL (1.5-8.5); NEUTROPHILS % 72.1 % (36.0-66.0); PLATELET COUNT, AUTOMATED 190 10^3/uL (150-450)
[2024-09-23 07:06] LABS: CALCIUM LEVEL 8.2 MG/DL (8.5-10.1); CARBON DIOXIDE LEVEL 25 MMOL/L (20-31); CHLORIDE LEVEL 107 MMOL/L (98-107); CK-MB VALUE MASS 6.8 NG/ML (<3.6); CPK CREATINE PHOSPHOKINASE 3173 U/L (34-145); CREATININE FOR GFR 0.75 MG/DL (0.55-1.30); GLOMERULAR FILTRATION RATE > 90.0 (>60); MAGNESIUM LEVEL 1.7 MG/DL (1.8-2.4); MB/CK RELATIVE INDEX 0.21 (< OR =4); POTASSIUM SERUM 3.7 MMOL/L (3.5-5.1); SODIUM LEVEL 141 MMOL/L (136-145)
[2024-09-23 08:15] VITALS: BP 96/60; O2SAT 97
[2024-09-23 08:35] VITALS: TEMP 98.3
[2024-09-23] MEDS ORDERED: GABAPENTIN 400 MG CAP PO SCH (09:00)
[2024-09-23] MEDS ORDERED: LR 1,000 ML IV ONE ×2 (09:10→11:00)
[2024-09-23] MEDS ORDERED: MAG SULF 1GM/100ML (MAG RUN) 1 GM in IV 1 EA IV SCH (10:00)
[2024-09-23] MEDS ORDERED: DOXAZOSIN MESYLATE 4 MG TAB PO SCH (21:00)
[2024-09-23] MEDS ORDERED: LURASIDONE HCL 20 MG TAB PO SCH (21:00)
== END 2024-09-23 10:10 | disposition left against medical advice (07) ==
LOC: M ED 10:13 → M ED INP 10:14
PROVIDERS: ADMIT General Practice; ATTEND General Practice
DX: R41.82 Altered mental status, unspecified (principal); T44.3X5A Adverse effect of other parasympatholytics [anticholinergics and antimuscarinics] and spasmolytics, initial encounter; G92.8 Other toxic encephalopathy; D72.829 Elevated white blood cell count, unspecified; F19.251 Other psychoactive substance dependence with psychoactive substance-induced psychotic disorder with hallucinations; F12.10 Cannabis abuse, uncomplicated; F19.10 Other psychoactive substance abuse, uncomplicated; R62.7 Adult failure to thrive; E43 Unspecified severe protein-calorie malnutrition; E86.0 Dehydration; F31.9 Bipolar disorder, unspecified; F20.0 Paranoid schizophrenia; N39.0 Urinary tract infection, site not specified; B96.20 Unspecified Escherichia coli [E. coli] as the cause of diseases classified elsewhere; B37.0 Candidal stomatitis; Z79.899 Other long term (current) drug therapy; Z88.8 Allergy status to other drugs, medicaments and biological substances; E83.42 Hypomagnesemia; K74.5 Biliary cirrhosis, unspecified
CPT/HCPCS: 36415; 51701; 80048; 80076; 80143; 80307; 81001; 81002; 82077; 82550; 82553; 83605; 83735; 84145; 84484; 84703; 85025; 85027; 85610; 85652; 86140; 87040; 87086; 87486; 87581; 87633; 87798; 93005; 96361; 96374; 96375; 96376; 99285; J1630; J2060

== ENCOUNTER → 2024-09-23 | Outpatient (REF) | payer OTHER ==
[~2024-09-23] MED LIST changes: +DOXA1TAB40 PO; +LURA20TA PO; +QUET100T2 PO; +[UNRECOGNIZED DRUG - REMARK]
[2024-09-23 17:04] LABS: PLATELET COUNT, AUTOMATED 200 10^3/uL (150-450)
[2024-09-23 17:54] LABS: INR 1.04
== END ==
LOC: M LABWUC 16:48
PROVIDERS: ATTEND Dentist
DX: K74.5 Biliary cirrhosis, unspecified (principal)

== ENCOUNTER 2024-11-24 20:47 | Emergency (ER) | payer MEDICAID, OTHER ==
[~2024-11-24] VITALS: Ht 167.6 cm; Wt 63.6 kg
[~2024-11-24 20:47] MED LIST changes: -IBUP-1022 PO; +IBUP600T42 PO
[2024-11-24 20:51] VITALS: TEMP 97.1
[2024-11-24] MEDS ORDERED: CEFEPIME HCL 2 GM in DEXTROSE 5% (D5W) ADV/MINI-BAG 50 ML IV ONE (22:30)
[2024-11-24] MEDS ORDERED: FAMOTIDINE 20 MG TAB PO PRN (22:55)
[2024-11-24] MEDS ORDERED: IBUPROFEN 400 MG TAB PO PRN (22:55)
[2024-11-25 00:15] LABS: PLATELET COUNT, AUTOMATED 400 10^3/uL (150-450)
[2024-11-25 00:17] LABS: CK-MB VALUE MASS < 1.0 NG/ML (<3.6); ETHYL ALCOHOL (ETHANOL) 0.004 % (0.000-0.010)
[2024-11-25 00:18] LABS: CPK CREATINE PHOSPHOKINASE 22 U/L (34-145); SALICYLATE LEVEL < 3.0 MG/DL (<30)
[2024-11-25 00:19] LABS: ALT/SGPT 9 U/L (7.0-40); AST/SGOT 13 U/L (<34); CALCIUM LEVEL 8.7 MG/DL (8.5-10.1); CARBON DIOXIDE LEVEL 28 MMOL/L (20-31); CHLORIDE LEVEL 110 MMOL/L (98-107); CREATININE FOR GFR 0.77 MG/DL (0.55-1.30); GLOMERULAR FILTRATION RATE > 90.0 (>60); POTASSIUM SERUM 3.6 MMOL/L (3.5-5.1); SODIUM LEVEL 142 MMOL/L (136-145)
[2024-11-25 00:21] LABS: HCG, SERUM QUALITATIVE NEGATIVE (NEGATIVE)
[2024-11-25] MEDS ORDERED: ISOVUE-370 76% 100 ML VIAL As Ordered ONE (00:42)
[2024-11-25 01:30] VITALS: BP 97/59
[2024-11-25 01:32] VITALS: O2SAT 97
[2024-11-25] MEDS: LORazepam 0.5 MG TAB PO ONE (01:37)
[2024-11-25] MEDS: ENOXAPARIN 30 MG/0.3 ML SYRINGE (J1650 PER 10MG) SC ONE (02:04)
[2024-11-25] MEDS ORDERED: ELIQ5TAB PO (02:10)
== END 2024-11-25 02:16 | disposition left against medical advice (07) ==
LOC: M ED 20:47
DX: I82.412 Acute embolism and thrombosis of left femoral vein (principal); I45.10 Unspecified right bundle-branch block; F19.10 Other psychoactive substance abuse, uncomplicated; F20.9 Schizophrenia, unspecified; F31.9 Bipolar disorder, unspecified; F90.9 Attention-deficit hyperactivity disorder, unspecified type; F17.200 Nicotine dependence, unspecified, uncomplicated; Z88.6 Allergy status to analgesic agent; Z79.01 Long term (current) use of anticoagulants; Z53.9 Procedure and treatment not carried out, unspecified reason

== ENCOUNTER 2024-11-25 10:24 | Emergency (ER) | payer OTHER ==
[~2024-11-25] VITALS: Ht 162.6 cm; Wt 56.3 kg
[~2024-11-25 10:24] MED LIST changes: +ELIQ5TAB PO
[2024-11-25 12:56] LABS: BASO # 0.1 10^3/uL (0.0-0.2); BASO % 1.3 % (0.0-1.0); EOS # 0.2 10^3/uL (0.0-0.5); EOS % 2.7 % (0.0-3.0); LYMPH # 2.4 10^3/uL (1.5-5.0); LYMPH % 32.7 % (24.0-44.0); MONO # 0.4 10^3/uL (0.0-0.8); MONO % 5.9 % (2.0-8.0); NEUTROPHILS # 4.2 10^3/uL (1.5-8.5); NEUTROPHILS % 57.0 % (36.0-66.0); PLATELET COUNT, AUTOMATED 417 10^3/uL (150-450)
[2024-11-25] MEDS ORDERED: HOME MED LIST COMPLETE! XX SCH (13:20)
[2024-11-25 13:26] LABS: CALCIUM LEVEL 8.6 MG/DL (8.5-10.1); CARBON DIOXIDE LEVEL 26 MMOL/L (20-31); CHLORIDE LEVEL 105 MMOL/L (98-107); CREATININE FOR GFR 0.66 MG/DL (0.55-1.30); GLOMERULAR FILTRATION RATE > 90.0 (>60); POTASSIUM SERUM 4.8 MMOL/L (3.5-5.1); SODIUM LEVEL 137 MMOL/L (136-145)
[2024-11-25 16:48] VITALS: BP 111/60; TEMP 97.5; O2SAT 100
== END 2024-11-25 16:49 | disposition home or self-care (01) ==
LOC: M ED 10:24
DX: I82.412 Acute embolism and thrombosis of left femoral vein (principal); R52 Pain, unspecified; F51.01 Primary insomnia; I26.99 Other pulmonary embolism without acute cor pulmonale; F19.10 Other psychoactive substance abuse, uncomplicated; F20.9 Schizophrenia, unspecified; F90.9 Attention-deficit hyperactivity disorder, unspecified type; F31.9 Bipolar disorder, unspecified; F17.200 Nicotine dependence, unspecified, uncomplicated; Z88.6 Allergy status to analgesic agent; Z79.01 Long term (current) use of anticoagulants
CPT/HCPCS: 80048; 83880; 84484; 85025; 96374; 99284; J2060

== ENCOUNTER 2024-12-25 18:53 | Emergency (ER) | payer OTHER ==
[2024-12-26 08:12] LABS: BASO # 0.1 10^3/uL (0.0-0.2); BASO % 0.7 % (0.0-1.0); EOS # 0.1 10^3/uL (0.0-0.5); EOS % 1.0 % (0.0-3.0); LYMPH # 2.4 10^3/uL (1.5-5.0); LYMPH % 23.1 % (24.0-44.0); MONO # 0.5 10^3/uL (0.0-0.8); MONO % 4.5 % (2.0-8.0); NEUTROPHILS # 7.4 10^3/uL (1.5-8.5); NEUTROPHILS % 70.4 % (36.0-66.0); PLATELET COUNT, AUTOMATED 382 10^3/uL (150-450)
[2024-12-26] MEDS: KETOROLAC 60 MG/2 ML VIAL IM ONE (08:12)
[2024-12-26 08:39] LABS: BARBITURATES URINE NEGATIVE (NEGATIVE); BENZODIAZEPINES URINE NEGATIVE (NEGATIVE); OPIATES URINE NEGATIVE (NEGATIVE); PHENCYCLIDINE URINE NEGATIVE (NEGATIVE)
[2024-12-26 08:42] LABS: ALT/SGPT 10 U/L (7.0-40); AST/SGOT 16 U/L (<34); CALCIUM LEVEL 9.2 MG/DL (8.5-10.1); CARBON DIOXIDE LEVEL 29 MMOL/L (20-31); CHLORIDE LEVEL 108 MMOL/L (98-107); CREATININE FOR GFR 0.86 MG/DL (0.55-1.30); GLOMERULAR FILTRATION RATE 88.6 (>60); POTASSIUM SERUM 4.3 MMOL/L (3.5-5.1); SODIUM LEVEL 144 MMOL/L (136-145)
[2024-12-26 08:43] LABS: AMPHETAMINES LEVEL URINE POSITIVE (NEGATIVE); CANNABINOIDS URINE POSITIVE (NEGATIVE); COCAINE METABOLITE URINE POSITIVE (NEGATIVE); METHADONE URINE POSITIVE (NEGATIVE)
[2024-12-26] MEDS ORDERED: CEPH500C PO (10:18)
[2024-12-26] MEDS ORDERED: COLA100C5 PO (10:24)
[2024-12-26] MEDS: CEPHALEXIN 500 MG CAP PO ONE (10:27)
[2024-12-26 10:29] VITALS: BP 100/55; TEMP 98.3; O2SAT 99
[2024-12-30 23:28] LABS: BORRELIA SPECIES DNA NOT DETECTED
== END 2024-12-26 10:37 | disposition home or self-care (01) ==
LOC: M ED 18:53 → EDBD 18:53 → M ED 12-26 10:37
DX: S91.301A Unspecified open wound, right foot, initial encounter (principal); S91.302A Unspecified open wound, left foot, initial encounter; K59.00 Constipation, unspecified; F19.10 Other psychoactive substance abuse, uncomplicated; F41.9 Anxiety disorder, unspecified; F17.200 Nicotine dependence, unspecified, uncomplicated; F12.10 Cannabis abuse, uncomplicated; Z86.711 Personal history of pulmonary embolism; Z86.718 Personal history of other venous thrombosis and embolism; Z88.6 Allergy status to analgesic agent; Z79.2 Long term (current) use of antibiotics; Z79.899 Other long term (current) drug therapy
CPT/HCPCS: 74018; 80048; 80076; 80307; 85025; 87070; 87077; 87186; 87205; 87468; 87469; 87478; 87484; 87486; 87581; 87633; 87798; 87801; 96372; 99284; J1885

== ENCOUNTER 2024-12-26 21:25 | Emergency (ER) | payer OTHER ==
[~2024-12-26] VITALS: Ht 162.6 cm; Wt 54.5 kg
[~2024-12-26 21:25] MED LIST changes: +CEPH500C PO
[2024-12-26 21:33] VITALS: BP 110/69; TEMP 97.1; O2SAT 99
[2024-12-27] MEDS: IBUPROFEN 600 MG TAB PO ONE (10:48)
[2024-12-27 11:07] LABS: KETONE, URINE AUTO RFX 1+ mg/dL (NEGATIVE); LEUKOCYTE ESTERASE UR AUTO RFX NEGATIVE (NEGATIVE); MUCUS, URINE RFX LARGE (NEGATIVE); NITRITE, URINE AUTO RFX NEGATIVE (NEGATIVE); RBC, URINE AUTO RFX 4 /HPF (0-3); SQUAM EPITHELIAL CELL UR AURFX 8 /HPF (0-6); WBC, URINE AUTO RFX 5 /HPF (0-3)
== END 2024-12-27 11:18 | disposition home or self-care (01) ==
LOC: M ED 21:25
DX: R41.82 Altered mental status, unspecified (principal); F17.200 Nicotine dependence, unspecified, uncomplicated; F19.10 Other psychoactive substance abuse, uncomplicated; F32.A Depression, unspecified; F41.9 Anxiety disorder, unspecified; Z86.718 Personal history of other venous thrombosis and embolism; Z88.6 Allergy status to analgesic agent; Z79.2 Long term (current) use of antibiotics; Z79.899 Other long term (current) drug therapy; Z53.9 Procedure and treatment not carried out, unspecified reason

== ENCOUNTER 2025-01-29 17:37 | Inpatient (IN) | payer OTHER ==
[2025-01-29] MEDS ORDERED: OLANZapine INTRAMUSCULAR 10MG VIAL IM ONE (18:00)
[2025-01-29 18:19] VITALS: BP 105/53; TEMP 98.1; O2SAT 99
[2025-01-29 18:28] LABS: PLATELET COUNT, AUTOMATED 313 10^3/uL (150-450)
[2025-01-29] MEDS ORDERED: HOME MED LIST COMPLETE! XX SCH (18:40)
[2025-01-29 18:46] LABS: BARBITURATES URINE NEGATIVE (NEGATIVE); BENZODIAZEPINES URINE NEGATIVE (NEGATIVE); COCAINE METABOLITE URINE NEGATIVE (NEGATIVE); OPIATES URINE NEGATIVE (NEGATIVE); PHENCYCLIDINE URINE NEGATIVE (NEGATIVE)
[2025-01-29 18:50] LABS: AMPHETAMINES LEVEL URINE POSITIVE (NEGATIVE); CANNABINOIDS URINE POSITIVE (NEGATIVE); METHADONE URINE POSITIVE (NEGATIVE)
[2025-01-29 19:01] LABS: ETHYL ALCOHOL (ETHANOL) < 0.003 % (0.000-0.010)
[2025-01-29 19:03] LABS: SALICYLATE LEVEL < 3.0 MG/DL (<30)
[2025-01-29 19:07] LABS: ALT/SGPT 14 U/L (7.0-40); AST/SGOT 22 U/L (<34); CALCIUM LEVEL 9.6 MG/DL (8.5-10.1); CARBON DIOXIDE LEVEL 28 MMOL/L (20-31); CHLORIDE LEVEL 103 MMOL/L (98-107); CREATININE FOR GFR 0.71 MG/DL (0.55-1.30); GLOMERULAR FILTRATION RATE > 90.0 (>60); POTASSIUM SERUM 3.9 MMOL/L (3.5-5.1); SODIUM LEVEL 141 MMOL/L (136-145)
[2025-01-29 19:51] LABS: HCG, SERUM QUALITATIVE NEGATIVE (NEGATIVE)
[2025-01-29] MEDS ORDERED: MOM 30 ML SUSPENSION UDC PO PRN (21:55)
[2025-01-29] MEDS ORDERED: OLANZapine 5 MG TAB PO PRN (21:55)
[2025-01-29] MEDS ORDERED: MAALOX 30 ML SUSP *UDC PO PRN (21:55)
[2025-01-29] MEDS ORDERED: IBUPROFEN 400 MG TAB PO PRN (21:55)
[2025-01-29] MEDS ORDERED: traZODone 50 MG TAB PO PRN (21:55)
[2025-01-30] MEDS: DIVALPROEX 250 MG TAB PO SCH (09:00)
[2025-01-30] MEDS: OLANZapine 5 MG TAB PO ONE (11:46)
[2025-01-30] MEDS: OLANZapine 5 MG TAB PO SCH (21:00)
[2025-02-02] MEDS: OLANZapine 5 MG TAB PO SCH (20:08)
[2025-02-02] MEDS: DIVALPROEX 250 MG TAB PO SCH (20:09)
[2025-02-06] MEDS ORDERED: OLAN1TAB16 PO (01:23)
[2025-02-06] MEDS ORDERED: TRAZ-252 PO (01:23)
[2025-02-06] MEDS ORDERED: DIVA-65 PO (01:23)
== END 2025-02-06 08:48 | disposition home or self-care (01) | DRG 753 ==
LOC: M ED 17:37 → M ED INP 21:51 → M PSY 01-30 01:51
PROVIDERS: ADMIT Student in an Organized Health Care Education/Training Program; ATTEND Student in an Organized Health Care Education/Training Program
DX: F31.2 Bipolar disorder, current episode manic severe with psychotic features (principal); F15.20 Other stimulant dependence, uncomplicated; F41.1 Generalized anxiety disorder; F17.200 Nicotine dependence, unspecified, uncomplicated; Z88.8 Allergy status to other drugs, medicaments and biological substances